=== PATIENT | female | born 1935 | race Caucasian/White ===

== ENCOUNTER 2018-01-20 17:55 | Inpatient (IN) | payer MEDICARE, OTHER ==
[~2018-01-20] VITALS: Ht 147.3 cm; Wt 50.8 kg
[2018-01-20] MEDS ORDERED: fentaNYL PF VIAL 100 MCG/2 ML VIAL IV ONE (19:30)
[2018-01-20 19:38] LABS: BILIRUBIN,URINE NEGATIVE (NEG); CLARITY,URINE CLEAR; COLOR,URINE YELLOW; NITRITE,URINE NEGATIVE (NEG); PROTEIN,URINE 30 mg/dL (NEG-TRACE); UROBILINOGEN,URINE 0.2 mg/dL (0.2 mg/dL)
[2018-01-20 19:43] LABS: BACTERIA,URINE 0 /HPF (0-FEW); RBC,URINE 0 /HPF (0-2); SQUAMOUS EPITHELIAL CELL,UR FEW /LPF
[2018-01-20] MEDS ORDERED: IV NORMAL SALINE 1000ML BAG 1,000 ML IV ONE (19:45)
[2018-01-20 20:14] LABS: BASO # 0.1 x10^3/uL (0.0-0.2); BASO % 1 % (0-3); EOS % 0 % (0-3); HEMATOCRIT 33.7 % (36.0-47.0); HEMOGLOBIN 11.2 g/dL (12.0-15.5); LYMPH # 1.1 x10^3/uL (1.0-4.8); LYMPH % 11 % (24-48); MEAN CORPUSCULAR HEMOGLOBIN 34 pg (25-35); MEAN CORPUSCULAR HGB CONC 33 g/dL (31-37); MEAN CORPUSCULAR VOLUME 101 fL (79-100); MONO # 0.4 x10^3/uL (0.0-1.1); MONO % 4 % (0-9); NEUT # 8.4 x10^3uL (1.8-7.7); NEUT % 84 % (31-73); PLATELET COUNT 384 x10^3/uL (140-400); RED BLOOD COUNT 3.34 x10^6/uL (3.50-5.40); RED CELL DISTRIBUTION WIDTH 15.1 % (11.5-14.5)
--- NOTE | 2018-01-20 20:19 | RAD ---
Left lower extremity venous duplex study 01/20/2018 Clinical History: Left leg redness and swelling. Technique: Using a combination of real time ultrasound imaging and color-flow and pulse Doppler imaging techniques along with graded compression and augmentation, duplex evaluation of the deep venous system of the left lower extremity was performed. Multiple images were obtained. Findings: There is no sonographic evidence of deep venous thrombosis involving the visualized deep venous structures of left lower extremity. Impression: Negative study. Electronically signed by: Jose Alfredo Westbrook MD (01/20/2018 8:15 PM) [facility]
[2018-01-20 20:28] LABS: CALCIUM 9.4 mg/dL (8.5-10.1); CREATININE 1.2 mg/dL (0.6-1.0); GFR 42.8; POTASSIUM 4.3 mmol/L (3.5-5.1)
[2018-01-20 20:34] LABS: ALBUMIN 3.2 g/dL (3.4-5.0); ALBUMIN/GLOBULIN RATIO 0.6 (1.0-1.7); TOTAL BILIRUBIN 0.3 mg/dL (0.2-1.0); TOTAL PROTEIN 8.2 g/dL (6.4-8.2)
[2018-01-20] MEDS ORDERED: CEPH500C PO (20:48)
[2018-01-20] MEDS ORDERED: ASPI-630 PO (20:48)
[2018-01-20] MEDS ORDERED: LISI-334 PO (20:48)
[2018-01-20] MEDS ORDERED: CRESTOR5 MG PO (20:48)
[2018-01-20] MEDS ORDERED: AMLO5TAB7 PO (20:48)
[2018-01-20] MEDS ORDERED: DOXY100C14 PO (20:48)
[2018-01-20 23:30] VITALS: BP 152/59
[2018-01-20] MEDS ORDERED: fentaNYL PF VIAL 100 MCG/2 ML VIAL IV PRN (23:30)
[2018-01-20] MEDS ORDERED: ONDANSETRON PF 4 MG/2 ML VIAL. IV PRN (23:30)
--- NOTE | 2018-01-20 23:30 | PHYS DOC ---
Past Medical History Past Medical History: Hypertension Past Surgical History: No Surgical History Alcohol Use: None Drug Use: None Adult General Chief Complaint Chief Complaint: LOWER EXTREMITY SWELLING HPI HPI Patient is a 82 year old female who presents with pain and erythema to her left foot. The patient states that she was weed eating in her garden and did her calf. She states that wound was healing fine and then she started developing this swelling, pain and redness in her foot. She states that she went to the [facility] Emergency Department at [facility] where she was placed on Keflex. The foot continued to worsen so she was seen by a another provider who added doxycycline. She states that she started the Doxy but the foot has continued to worsen with redness and the erythema now extending up into her ankle. She states the pain is 9 out of 10. She does not have pain medication at home. Review of Systems Review of Systems Constitutional: Denies fever or chills [] Eyes: Denies change in visual acuity, redness, or eye pain [] HENT: Denies nasal congestion or sore throat [] Respiratory: Denies cough or shortness of breath [] Cardiovascular: No additional information not addressed in HPI [] Musculoskeletal: See history of present illness Integument: Denies rash or skin lesions [] Neurologic: Denies headache, focal weakness or sensory changes [] Endocrine: Denies polyuria or polydipsia [] All other systems were reviewed and found to be within normal limits, except as documented in this note. Current Medications Current Medications Current Medications Medications (Trade) Dose Ordered Sig/[facility] Start Time Stop Time Status Last Admin Dose Admin Fentanyl Citrate (Fentanyl 2ml Vial) 50 mcg 1X ONCE 01/20/18 19:30 01/20/18 19:39 DC 01/20/18 20:13 50 MCG Sodium Chloride 1,000 ml @ 1,000 mls/hr 1X ONCE 01/20/18 19:45 01/20/18 20:44 DC 01/20/18 20:10 1,000 MLS/HR Allergies Allergies Allergies Coded Allergies Type Severity Reaction Last Updated Verified Penicillins Allergy Intermediate RASH/HIVES 01/20/18 Yes Physical Exam Physical Exam Constitutional: Well developed, well nourished, no acute distress, non-toxic appearance. [] Cardiovascular:Heart rate regular rhythm, no murmur [] Lungs & Thorax: Bilateral breath sounds clear to auscultation [] Abdomen: Bowel sounds normal, soft, no tenderness, no masses, no pulsatile masses. [] Skin: Warm, dry, no erythema, no rash. [] Back: No tenderness, no CVA tenderness. [] Extremities: tenderness to left foot with palpation, calor and erythema noted to foot, pulses are intact, no cyanosis, no clubbing, ROM intact, 2+ pitting edema. [] Neurologic: Alert and oriented X 3, normal motor function, normal sensory function, no focal deficits noted. [] Psychologic: Affect normal, judgement normal, mood normal. [] Current Patient Data Vital Signs Vital Signs Date Time Temp Pulse Resp B/P (MAP) Pulse Ox O2 Delivery O2 Flow Rate FiO2 01/20/18 20:13 27 96 Nasal Cannula 01/20/18 19:00 98.5 101 185/83 (117) 2.0 98.5 Lab Values Laboratory Tests Test 01/20/18 18:52 01/20/18 20:00 Urine Collection Type Unknown Urine Color Yellow Urine Clarity Clear Urine pH 6.0 Urine Specific [place] 1.010 Urine Protein 30 mg/dL (NEG-TRACE) Urine Glucose (UA) Negative mg/dL (NEG) Urine Ketones (Stick) Negative mg/dL (NEG) Urine Blood Negative (NEG) Urine Nitrite Negative (NEG) Urine Bilirubin Negative (NEG) Urine Urobilinogen Dipstick 0.2 mg/dL (0.2 mg/dL) Urine Leukocyte Esterase Trace (NEG) Urine RBC 0 /HPF (0-2) Urine WBC 1-4 /HPF (0-4) Urine Squamous Epithelial Cells Few /LPF Urine Bacteria 0 /HPF (0-FEW) White Blood Count 10.0 x10^3/uL (4.0-11.0) Red Blood Count 3.34 x10^6/uL (3.50-5.40) L Hemoglobin 11.2 g/dL (12.0-15.5) L Hematocrit 33.7 % (36.0-47.0) L Mean Corpuscular Volume 101 fL (79-100) H Mean Corpuscular Hemoglobin 34 pg (25-35) Mean Corpuscular Hemoglobin Concent 33 g/dL (31-37) Red Cell Distribution Width 15.1 % (11.5-14.5) H Platelet Count 384 x10^3/uL (140-400) Neutrophils (%) (Auto) 84 % (31-73) H Lymphocytes (%) (Auto) 11 % (24-48) L Monocytes (%) (Auto) 4 % (0-9) Eosinophils (%) (Auto) 0 % (0-3) Basophils (%) (Auto) 1 % (0-3) Neutrophils # (Auto) 8.4 x10^3uL (1.8-7.7) H Lymphocytes # (Auto) 1.1 x10^3/uL (1.0-4.8) Monocytes # (Auto) 0.4 x10^3/uL (0.0-1.1) Eosinophils # (Auto) 0.0 x10^3/uL (0.0-0.7) Basophils # (Auto) 0.1 x10^3/uL (0.0-0.2) Sodium Level 140 mmol/L (136-145) Potassium Level 4.3 mmol/L (3.5-5.1) Chloride Level 103 mmol/L (98-107) Carbon Dioxide Level 27 mmol/L (21-32) Anion Gap 10 (6-14) Blood Urea Nitrogen 21 mg/dL (7-20) H Creatinine 1.2 mg/dL (0.6-1.0) H Estimated GFR (Cockcroft-Gault) 42.8 BUN/Creatinine Ratio 18 (6-20) Glucose Level 87 mg/dL (70-99) Lactic Acid Level 0.5 mmol/L (0.4-2.0) Calcium Level 9.4 mg/dL (8.5-10.1) Total Bilirubin 0.3 mg/dL (0.2-1.0) Aspartate Amino Transferase (AST) 20 U/L (15-37) Alanine Aminotransferase (ALT) 21 U/L (14-59) Alkaline Phosphatase 70 U/L (46-116) Total Protein 8.2 g/dL (6.4-8.2) Albumin 3.2 g/dL (3.4-5.0) L Albumin/Globulin Ratio 0.6 (1.0-1.7) L Laboratory Tests 01/20/18 20:00 Laboratory Tests 01/20/18 20:00 EKG EKG [] Radiology/Procedures Radiology/Procedures [] Signed PATIENT: ANNMARIE RIVERO ACCOUNT: [id number] : 1935 LOCATION: ER AGE: 82 SEX: F EXAM STATUS: REG ER ORD. PHYSICIAN: MARY ALMEIDA APRN REASON: erythema and edema to left lower extremity PROCEDURE: VENOUS LOWER EXTREMITY LEFT Left lower extremity venous duplex study 01/20/2018 Clinical History: Left leg redness and swelling. Technique: Using a combination of real time ultrasound imaging and color-flow and pulse Doppler imaging techniques along with graded compression and augmentation, duplex evaluation of the deep venous system of the left lower extremity was performed. Multiple images were obtained. Findings: There is no sonographic evidence of deep venous thrombosis involving the visualized deep venous structures of left lower extremity. Impression: Negative study. Electronically signed by: Jose Alfredo Westbrook MD (01/20/2018 8:15 PM) [facility] DICTATED and SIGNED BY: JOSE ALFREDO WESTBROOK MD DATE: 01/20/18 2015 Course & Med Decision Making Course & Med Decision Making Pertinent Labs and Imaging studies reviewed. (See chart for details) []The patient is being admitted to Dr. Bruce's service for IV antibiotic therapy. She is in agreement with this plan. Dragon Disclaimer Dragon Disclaimer This electronic medical record was generated, in whole or in part, using a voice recognition dictation system. Departure Departure Impression: Primary Impression: Cellulitis Disposition: ADMITTED INPATIENT Admitting Physician: Brien Rivero Condition: GOOD Referrals: EDMOND LLAMAS MD (PCP) MARY ALMEIDA APRN Jan 20, 2018 23:30
[2018-01-20] MEDS: IV NORMAL SALINE 1000ML BAG 1,000 ML IV SCH (23:53)
[2018-01-21 03:00] VITALS: BP 119/55
[2018-01-21 05:20] LABS: BASO % 1 % (0-3); EOS % 0 % (0-3); HEMATOCRIT 27.7 % (36.0-47.0); HEMOGLOBIN 9.5 g/dL (12.0-15.5); LYMPH # 1.4 x10^3/uL (1.0-4.8); LYMPH % 18 % (24-48); MEAN CORPUSCULAR HEMOGLOBIN 35 pg (25-35); MEAN CORPUSCULAR HGB CONC 34 g/dL (31-37); MEAN CORPUSCULAR VOLUME 102 fL (79-100); MONO # 0.3 x10^3/uL (0.0-1.1); MONO % 4 % (0-9); NEUT # 5.9 x10^3uL (1.8-7.7); NEUT % 77 % (31-73); PLATELET COUNT 321 x10^3/uL (140-400); RED BLOOD COUNT 2.72 x10^6/uL (3.50-5.40); RED CELL DISTRIBUTION WIDTH 14.8 % (11.5-14.5); WHITE BLOOD COUNT 7.7 x10^3/uL (4.0-11.0)
[2018-01-21 05:33] LABS: CALCIUM 8.5 mg/dL (8.5-10.1); CREATININE 1.1 mg/dL (0.6-1.0); GFR 47.3; POTASSIUM 3.7 mmol/L (3.5-5.1)
[2018-01-21 07:00] VITALS: BP 131/54
--- NOTE | 2018-01-21 08:19 | RAD ---
FOOT LEFT 3V History: Left foot pain and swelling and edema for one week Comparison: None. Findings: 3 views of the left foot are submitted. There is some vascular calcification. No acute fracture, dislocation, aggressive bone destruction is identified. Impression: 1. No acute osseous abnormality is identified. Electronically signed by: Yuniel Garcia MD (01/21/2018 8:16 AM) [email or web address]
[2018-01-21 11:00] VITALS: BP 134/57
--- NOTE | 2018-01-21 11:02 | PDOC1 ---
History and Physical Date of Admission Date of Admission DATE: 01/21/18 TIME: 11:01 Identification/Chief Complaint Chief Complaint CC SEEN IN ER presentED with pain and erythema to her left foot, was weed eating in her garden nicked her calf. states that wound was healing fine and then she started developing this swelling, pain and redness in her foot., she went to the [facility] Emergency Department at [facility] where she was placed on Keflex. her foot continued to worsen so she was seen by a another provider who added doxycycline., started the Doxy but the foot has continued to worsen with redness admitted, will start iv vanc Past Medical History Cardiovascular: Hyperlipidemia Pulmonary: COPD Hepatobiliary: No pertinent hx Musculoskeletal: Osteoarthritis ENT: No pertinent hx Dermatology: Rash Family History Family History: High Cholestrol, Hypertension Social History Smoke: <1 pack per day ALCOHOL: none Drugs: None Current Medications Current Medications Current Medications Fentanyl Citrate (Fentanyl 2ml Vial) 50 mcg 1X ONCE IV Last administered on at 20:13; Start 01/20/18 at 19:30; Stop 01/20/18 at 19:39; Status DC Sodium Chloride 1,000 ml @ 1,000 mls/hr 1X ONCE IV Last administered on at 20:10; Start 01/20/18 at 19:45; Stop 01/20/18 at 20:44; Status DC Ondansetron HCl (Zofran) 4 mg PRN Q8HRS PRN IV NAUSEA/VOMITING 1ST CHOICE; Start 01/20/18 at 23:30; Stop 01/21/18 at 23:29 Fentanyl Citrate (Fentanyl 2ml Vial) 50 mcg PRN Q2HR PRN IV SEVERE PAIN Last administered on 01/21/18at 05:58; Start 01/20/18 at 23:30; Stop 01/21/18 at 23:29 Sodium Chloride 1,000 ml @ 125 mls/hr Q8H IV Last administered on 01/20/18at 23 :53; Start 01/20/18 at 23:30; Stop 01/21/18 at 23:29 Active Scripts Active Reported Doxycycline Monohydrate 100 Mg Capsule 1 Cap PO BID Cephalexin 500 Mg Capsule 1 Cap PO TID Aspirin 81 Mg Tab.chew 1 Tab PO DAILY Crestor (Rosuvastatin Calcium) 5 Mg Tablet 5 Mg PO HS Amlodipine Besylate 5 Mg Tablet 5 Mg PO DAILY Lisinopril 20 Mg Tablet 1 Tab PO BID Allergies Allergies: Coded Allergies: Penicillins (Verified Allergy, Intermediate, RASH/HIVES, 01/20/18) ROS Review of System Review of Systems Review of Systems Constitutional: Denies fever or chills [] Eyes: Denies change in visual acuity, redness, or eye pain [] HENT: Denies nasal congestion or sore throat [] Respiratory: Denies cough or shortness of breath [] Cardiovascular: No additional information not addressed in HPI [] Musculoskeletal: See history of present illness Integument: Denies rash or skin lesions [] Neurologic: Denies headache, focal weakness or sensory changes [] Endocrine: Denies polyuria or polydipsia [] 14 pt systems were reviewed and found to be within normal limits, except as documented General: YES: Fatigue Hematological and Lymphatic: No: Bleeding Problems, Blood Clots, Blood Transfusions, Brusing, Night Sweats, Pallor, Swollen Lymph Nodes, Other Cardiovascular: yes Edema; No Chest Pain, No Palpitations, No Orthopnea, No Paroxysmal Noc. Dyspnea, No Lt Headedness, No Other Genitourinary: No Dysuria, No Frequency, No Incontinence, No Hematuria, No Retention, No Discharge, No Urgency, No Pain, No Flank Pain, No Other, No , No , No , No , No , No , No Musculoskeletal: Yes Joint Stiffness Neurological: Yes Gait Disturbance Skin: Yes Rash, Yes Skin Lesion Changes Physical Exam Physical Exam Physical Exam Physical Exam Constitutional: Well developed, well nourished, no acute distress, non-toxic appearance. [] Cardiovascular:Heart rate regular rhythm, no murmur [] Lungs & Thorax: Bilateral breath sounds clear to auscultation [] Abdomen: Bowel sounds normal, soft, no tenderness, no masses, no pulsatile masses. [] Skin: Warm, dry, no erythema, no rash. [] Back: No tenderness, no CVA tenderness. [] Extremities: tenderness to left foot with palpation, calor and erythema noted to foot, pulses are intact, no cyanosis, no clubbing, ROM intact, 2+ pitting edema. [] Neurologic: Alert and oriented X 3, normal motor function, normal sensory function, no focal deficits noted. [] Psychologic: Affect normal, judgement normal, mood normal. [] General: Alert, Oriented X3, Cooperative, mild distress HEENT: Atraumatic, PERRLA, EOMI, Mucous membr. moist/pink Lungs: Clear to auscultation, Normal air movement Heart: S1S2, RRR, no thrills Breasts: Not examined Abdomen: Normal bowel sounds, Soft Rectal Exam: not examined Extremities: No cyanosis Neuro: Normal speech, Cranial nerves 3-12 NL Psych/Mental Status: Mental status NL Vitals Vitals Vital Signs Date Time Temp Pulse Resp B/P (MAP) Pulse Ox O2 Delivery O2 Flow Rate FiO2 01/21/18 07:50 Nasal Cannula 2.0 01/21/18 07:00 97.5 84 18 131/54 (79) 93 97.5 Labs Labs Laboratory Tests Test 01/20/18 18:52 01/20/18 20:00 01/21/18 03:50 Urine Collection Type Unknown Urine Color Yellow Urine Clarity Clear Urine pH 6.0 Urine Specific [place] 1.010 Urine Protein 30 mg/dL (NEG-TRACE) Urine Glucose (UA) Negative mg/dL (NEG) Urine Ketones (Stick) Negative mg/dL (NEG) Urine Blood Negative (NEG) Urine Nitrite Negative (NEG) Urine Bilirubin Negative (NEG) Urine Urobilinogen Dipstick 0.2 mg/dL (0.2 mg/dL) Urine Leukocyte Esterase Trace (NEG) Urine RBC 0 /HPF (0-2) Urine WBC 1-4 /HPF (0-4) Urine Squamous Epithelial Cells Few /LPF Urine Bacteria 0 /HPF (0-FEW) White Blood Count 10.0 x10^3/uL (4.0-11.0) 7.7 x10^3/uL (4.0-11.0) Red Blood Count 3.34 x10^6/uL (3.50-5.40) 2.72 x10^6/uL (3.50-5.40) Hemoglobin 11.2 g/dL (12.0-15.5) 9.5 g/dL (12.0-15.5) Hematocrit 33.7 % (36.0-47.0) 27.7 % (36.0-47.0) Mean Corpuscular Volume 101 fL (79-100) 102 fL (79-100) Mean Corpuscular Hemoglobin 34 pg (25-35) 35 pg (25-35) Mean Corpuscular Hemoglobin Concent 33 g/dL (31-37) 34 g/dL (31-37) Red Cell Distribution Width 15.1 % (11.5-14.5) 14.8 % (11.5-14.5) Platelet Count 384 x10^3/uL (140-400) 321 x10^3/uL (140-400) Neutrophils (%) (Auto) 84 % (31-73) 77 % (31-73) Lymphocytes (%) (Auto) 11 % (24-48) 18 % (24-48) Monocytes (%) (Auto) 4 % (0-9) 4 % (0-9) Eosinophils (%) (Auto) 0 % (0-3) 0 % (0-3) Basophils (%) (Auto) 1 % (0-3) 1 % (0-3) Neutrophils # (Auto) 8.4 x10^3uL (1.8-7.7) 5.9 x10^3uL (1.8-7.7) Lymphocytes # (Auto) 1.1 x10^3/uL (1.0-4.8) 1.4 x10^3/uL (1.0-4.8) Monocytes # (Auto) 0.4 x10^3/uL (0.0-1.1) 0.3 x10^3/uL (0.0-1.1) Eosinophils # (Auto) 0.0 x10^3/uL (0.0-0.7) 0.0 x10^3/uL (0.0-0.7) Basophils # (Auto) 0.1 x10^3/uL (0.0-0.2) 0.0 x10^3/uL (0.0-0.2) Sodium Level 140 mmol/L (136-145) 141 mmol/L (136-145) Potassium Level 4.3 mmol/L (3.5-5.1) 3.7 mmol/L (3.5-5.1) Chloride Level 103 mmol/L (98-107) 106 mmol/L (98-107) Carbon Dioxide Level 27 mmol/L (21-32) 26 mmol/L (21-32) Anion Gap 10 (6-14) 9 (6-14) Blood Urea Nitrogen 21 mg/dL (7-20) 19 mg/dL (7-20) Creatinine 1.2 mg/dL (0.6-1.0) 1.1 mg/dL (0.6-1.0) Estimated GFR (Cockcroft-Gault) 42.8 47.3 BUN/Creatinine Ratio 18 (6-20) Glucose Level 87 mg/dL (70-99) 86 mg/dL (70-99) Lactic Acid Level 0.5 mmol/L (0.4-2.0) Calcium Level 9.4 mg/dL (8.5-10.1) 8.5 mg/dL (8.5-10.1) Total Bilirubin 0.3 mg/dL (0.2-1.0) Aspartate Amino Transf (AST/SGOT) 20 U/L (15-37) Alanine Aminotransferase (ALT/SGPT) 21 U/L (14-59) Alkaline Phosphatase 70 U/L (46-116) Total Protein 8.2 g/dL (6.4-8.2) Albumin 3.2 g/dL (3.4-5.0) Albumin/Globulin Ratio 0.6 (1.0-1.7) Laboratory Tests Test 01/20/18 18:52 01/20/18 20:00 01/21/18 03:50 Urine Collection Type Unknown Urine Color Yellow Urine Clarity Clear Urine pH 6.0 Urine Specific [place] 1.010 Urine Protein 30 mg/dL (NEG-TRACE) Urine Glucose (UA) Negative mg/dL (NEG) Urine Ketones (Stick) Negative mg/dL (NEG) Urine Blood Negative (NEG) Urine Nitrite Negative (NEG) Urine Bilirubin Negative (NEG) Urine Urobilinogen Dipstick 0.2 mg/dL (0.2 mg/dL) Urine Leukocyte Esterase Trace (NEG) Urine RBC 0 /HPF (0-2) Urine WBC 1-4 /HPF (0-4) Urine Squamous Epithelial Cells Few /LPF Urine Bacteria 0 /HPF (0-FEW) White Blood Count 10.0 x10^3/uL (4.0-11.0) 7.7 x10^3/uL (4.0-11.0) Red Blood Count 3.34 x10^6/uL (3.50-5.40) 2.72 x10^6/uL (3.50-5.40) Hemoglobin 11.2 g/dL (12.0-15.5) 9.5 g/dL (12.0-15.5) Hematocrit 33.7 % (36.0-47.0) 27.7 % (36.0-47.0) Mean Corpuscular Volume 101 fL (79-100) 102 fL (79-100) Mean Corpuscular Hemoglobin 34 pg (25-35) 35 pg (25-35) Mean Corpuscular Hemoglobin Concent 33 g/dL (31-37) 34 g/dL (31-37) Red Cell Distribution Width 15.1 % (11.5-14.5) 14.8 % (11.5-14.5) Platelet Count 384 x10^3/uL (140-400) 321 x10^3/uL (140-400) Neutrophils (%) (Auto) 84 % (31-73) 77 % (31-73) Lymphocytes (%) (Auto) 11 % (24-48) 18 % (24-48) Monocytes (%) (Auto) 4 % (0-9) 4 % (0-9) Eosinophils (%) (Auto) 0 % (0-3) 0 % (0-3) Basophils (%) (Auto) 1 % (0-3) 1 % (0-3) Neutrophils # (Auto) 8.4 x10^3uL (1.8-7.7) 5.9 x10^3uL (1.8-7.7) Lymphocytes # (Auto) 1.1 x10^3/uL (1.0-4.8) 1.4 x10^3/uL (1.0-4.8) Monocytes # (Auto) 0.4 x10^3/uL (0.0-1.1) 0.3 x10^3/uL (0.0-1.1) Eosinophils # (Auto) 0.0 x10^3/uL (0.0-0.7) 0.0 x10^3/uL (0.0-0.7) Basophils # (Auto) 0.1 x10^3/uL (0.0-0.2) 0.0 x10^3/uL (0.0-0.2) Sodium Level 140 mmol/L (136-145) 141 mmol/L (136-145) Potassium Level 4.3 mmol/L (3.5-5.1) 3.7 mmol/L (3.5-5.1) Chloride Level 103 mmol/L (98-107) 106 mmol/L (98-107) Carbon Dioxide Level 27 mmol/L (21-32) 26 mmol/L (21-32) Anion Gap 10 (6-14) 9 (6-14) Blood Urea Nitrogen 21 mg/dL (7-20) 19 mg/dL (7-20) Creatinine 1.2 mg/dL (0.6-1.0) 1.1 mg/dL (0.6-1.0) Estimated GFR (Cockcroft-Gault) 42.8 47.3 BUN/Creatinine Ratio 18 (6-20) Glucose Level 87 mg/dL (70-99) 86 mg/dL (70-99) Lactic Acid Level 0.5 mmol/L (0.4-2.0) Calcium Level 9.4 mg/dL (8.5-10.1) 8.5 mg/dL (8.5-10.1) Total Bilirubin 0.3 mg/dL (0.2-1.0) Aspartate Amino Transf (AST/SGOT) 20 U/L (15-37) Alanine Aminotransferase (ALT/SGPT) 21 U/L (14-59) Alkaline Phosphatase 70 U/L (46-116) Total Protein 8.2 g/dL (6.4-8.2) Albumin 3.2 g/dL (3.4-5.0) Albumin/Globulin Ratio 0.6 (1.0-1.7) VTE Prophylaxis Ordered VTE Prophylaxis Devices: Contraindicated VTE Pharmacological Prophylaxi: Yes Assessment/Plan Assessment/Plan Impression: Cellulitis left foot and lower leg ckd, pre-renal azotemia tobacco abuse plan ADMITTED INPATIENT iv antibiotics, VANC id consult mri left foot arterial doppler both legs sq lovenox dvt prophylaxis ELIDA BOWLES MD Jan 21, 2018 11:02
[2018-01-21] MEDS: IV NORMAL SALINE 1000ML BAG 1,000 ML IV SCH ×2 (12:03→15:30)
[2018-01-21 15:00] VITALS: BP 149/58
[2018-01-21] MEDS ORDERED: ENOXAPARIN 40 MG/0.4 ML SYRINGE. SQ SCH (15:15)
[2018-01-21] MEDS ORDERED: VANCOMYCIN 1.25 GM in IV NORMAL SALINE 250ML 250 ML IV ONE (15:30)
[2018-01-21] MEDS: amLODIPine BESYLATE 5 MG TABLET PO SCH (15:31)
[2018-01-21] MEDS: ENOXAPARIN 30 MG/0.3 ML SYRINGE. SQ SCH (15:31)
[2018-01-21] MEDS: ASPIRIN CHEWABLE 81 MG TABLET. PO SCH (15:31)
[2018-01-21] MEDS: VANCOMYCIN PER PHARMACY MC PRN (16:16)
--- NOTE | 2018-01-21 17:11 | RAD ---
Bilateral lower extremity arterial ultrasound, 01/21/2018: HISTORY: Peripheral vascular disease Duplex evaluation of the major arteries in both lower extremities was performed including grayscale, color-flow and spectral Doppler analysis. There is moderate scattered atherosclerotic plaquing bilaterally. The right common femoral, superficial femoral and popliteal arteries demonstrate biphasic Doppler waveforms. The right common femoral artery demonstrates a peak systolic velocity of 123 cm/s. There is a velocity acceleration in the proximal right superficial femoral artery up to 259 cm/s, suggesting moderate stenosis at that level. No additional focal velocity acceleration is seen in the right femoral or popliteal arteries. The right anterior tibial and posterior tibial arteries demonstrate biphasic waveforms proximally. Distally the right posterior tibial Doppler waveform is monophasic. A patent peroneal artery in the right calf was not visible. The right dorsalis pedis artery is patent with a monophasic Doppler waveforms demonstrate a peak systolic velocity 116 cm/s. On the left, the common femoral, superficial femoral and popliteal Doppler waveforms are monophasic. This raises the possibility of iliac inflow disease on the left. There is a velocity acceleration in the mid left superficial femoral artery up to 417 cm/s suggesting significant stenosis at that level. In the left lower leg the posterior tibial artery demonstrates a dampened monophasic Doppler waveform. The left peroneal artery could not be visualized. The left anterior tibial artery is monophasic. The left dorsalis pedis artery is patent but demonstrates a poor amplitude monophasic Doppler waveform with a peak systolic velocity of 35 cm/s. IMPRESSION: 1. Moderate bilateral scattered atherosclerotic plaquing. 2. 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 3. Doppler evidence of high-grade stenosis in the left superficial femoral artery. 4. Probable moderate stenosis in the right superficial femoral artery. 5. 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 6. Moderate degradation of the distal Doppler waveforms in the left lower leg and ankle. Electronically signed by: Eulalio Snyder MD (01/21/2018 5:07 PM) [facility]
[2018-01-21 19:00] VITALS: BP 136/59
[2018-01-21] MEDS: LISINOPRIL 20 MG TABLET PO SCH (20:58)
[2018-01-21] MEDS: ATORVASTATIN CALCIUM 20 MG TABLET PO SCH (20:58)
[2018-01-21 23:00] VITALS: BP 121/77
[2018-01-22 03:00] VITALS: BP 122/61
[2018-01-22 04:24] LABS: BASO % 1 % (0-3); EOS % 0 % (0-3); HEMATOCRIT 28.9 % (36.0-47.0); HEMOGLOBIN 9.7 g/dL (12.0-15.5); LYMPH # 1.1 x10^3/uL (1.0-4.8); LYMPH % 17 % (24-48); MEAN CORPUSCULAR HEMOGLOBIN 34 pg (25-35); MEAN CORPUSCULAR HGB CONC 33 g/dL (31-37); MEAN CORPUSCULAR VOLUME 103 fL (79-100); MONO # 0.3 x10^3/uL (0.0-1.1); MONO % 4 % (0-9); NEUT # 5.3 x10^3uL (1.8-7.7); NEUT % 78 % (31-73); PLATELET COUNT 321 x10^3/uL (140-400); RED BLOOD COUNT 2.82 x10^6/uL (3.50-5.40); RED CELL DISTRIBUTION WIDTH 14.4 % (11.5-14.5); WHITE BLOOD COUNT 6.8 x10^3/uL (4.0-11.0)
[2018-01-22 05:04] LABS: ALBUMIN 2.6 g/dL (3.4-5.0); ALBUMIN/GLOBULIN RATIO 0.7 (1.0-1.7); CALCIUM 8.4 mg/dL (8.5-10.1); CREATININE 0.9 mg/dL (0.6-1.0); GFR 59.7; POTASSIUM 3.5 mmol/L (3.5-5.1); TOTAL BILIRUBIN 0.4 mg/dL (0.2-1.0); TOTAL PROTEIN 6.6 g/dL (6.4-8.2)
[2018-01-22 07:00] VITALS: BP 157/66
[2018-01-22] MEDS: LISINOPRIL 20 MG TABLET PO SCH ×2 (08:31→21:02)
[2018-01-22] MEDS: amLODIPine BESYLATE 5 MG TABLET PO SCH (08:31)
[2018-01-22] MEDS: ASPIRIN CHEWABLE 81 MG TABLET. PO SCH (08:31)
--- NOTE | 2018-01-22 10:56 | PDOC ---
PROGRESS NOTES History of Present Illness History of Present Illness Assessment/Plan Assessment/Plan Impression: Cellulitis left foot and lower leg ckd, pre-renal azotemia tobacco abuse Moderate bilateral scattered atherosclerotic plaquing. 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 Doppler evidence of high-grade stenosis in the left superficial femoral artery. Probable moderate stenosis in the right superficial femoral artery. 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 plan ADMITTED iv antibiotics, VANC id consult mri left foot pending arterial doppler both legs reviewed vas surgery consult sq lovenox dvt prophylaxis Vitals Vitals Vital Signs Date Time Temp Pulse Resp B/P (MAP) Pulse Ox O2 Delivery O2 Flow Rate FiO2 01/22/18 08:31 85 157/66 01/22/18 07:55 Nasal Cannula 2.0 01/22/18 07:00 98.1 20 92 98.1 Physical Exam General: Alert, Oriented X3, Cooperative, mild distress Heart: Regular rate, Normal S1 Lungs: Clear Abdomen: Normal bowel sounds, Soft Extremities: No cyanosis Skin: Other (foot red and tender, dec pelses) Labs LABS IMPRESSION: 1. Moderate bilateral scattered atherosclerotic plaquing. 2. 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 3. Doppler evidence of high-grade stenosis in the left superficial femoral artery. 4. Probable moderate stenosis in the right superficial femoral artery. 5. 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 6. Moderate degradation of the distal Doppler waveforms in the left lower leg and ankle. Electronically signed by: Eulalio Snyder MD (01/21/2018 5:07 PM) [facility] Laboratory Tests Test 01/22/18 03:20 White Blood Count 6.8 x10^3/uL (4.0-11.0) Red Blood Count 2.82 x10^6/uL (3.50-5.40) Hemoglobin 9.7 g/dL (12.0-15.5) Hematocrit 28.9 % (36.0-47.0) Mean Corpuscular Volume 103 fL (79-100) Mean Corpuscular Hemoglobin 34 pg (25-35) Mean Corpuscular Hemoglobin Concent 33 g/dL (31-37) Red Cell Distribution Width 14.4 % (11.5-14.5) Platelet Count 321 x10^3/uL (140-400) Neutrophils (%) (Auto) 78 % (31-73) Lymphocytes (%) (Auto) 17 % (24-48) Monocytes (%) (Auto) 4 % (0-9) Eosinophils (%) (Auto) 0 % (0-3) Basophils (%) (Auto) 1 % (0-3) Neutrophils # (Auto) 5.3 x10^3uL (1.8-7.7) Lymphocytes # (Auto) 1.1 x10^3/uL (1.0-4.8) Monocytes # (Auto) 0.3 x10^3/uL (0.0-1.1) Eosinophils # (Auto) 0.0 x10^3/uL (0.0-0.7) Basophils # (Auto) 0.0 x10^3/uL (0.0-0.2) Sodium Level 143 mmol/L (136-145) Potassium Level 3.5 mmol/L (3.5-5.1) Chloride Level 108 mmol/L (98-107) Carbon Dioxide Level 27 mmol/L (21-32) Anion Gap 8 (6-14) Blood Urea Nitrogen 11 mg/dL (7-20) Creatinine 0.9 mg/dL (0.6-1.0) Estimated GFR (Cockcroft-Gault) 59.7 BUN/Creatinine Ratio 12 (6-20) Glucose Level 95 mg/dL (70-99) Calcium Level 8.4 mg/dL (8.5-10.1) Total Bilirubin 0.4 mg/dL (0.2-1.0) Aspartate Amino Transf (AST/SGOT) 18 U/L (15-37) Alanine Aminotransferase (ALT/SGPT) 16 U/L (14-59) Alkaline Phosphatase 54 U/L (46-116) Total Protein 6.6 g/dL (6.4-8.2) Albumin 2.6 g/dL (3.4-5.0) Albumin/Globulin Ratio 0.7 (1.0-1.7) Assessment and Plan Assessmemt and Plan 1. Moderate bilateral scattered atherosclerotic plaquing. 2. 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 3. Doppler evidence of high-grade stenosis in the left superficial femoral artery. 4. Probable moderate stenosis in the right superficial femoral artery. 5. 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 Comment Review of Relevant I have reviewed the following items je (where applicable) has been applied. Labs Laboratory Tests Test 01/20/18 18:52 01/20/18 20:00 01/21/18 03:50 01/22/18 03:20 Urine Collection Type Unknown Urine Color Yellow Urine Clarity Clear Urine pH 6.0 Urine Specific Harmony 1.010 Urine Protein 30 mg/dL (NEG-TRACE) Urine Glucose (UA) Negative mg/dL (NEG) Urine Ketones (Stick) Negative mg/dL (NEG) Urine Blood Negative (NEG) Urine Nitrite Negative (NEG) Urine Bilirubin Negative (NEG) Urine Urobilinogen Dipstick 0.2 mg/dL (0.2 mg/dL) Urine Leukocyte Esterase Trace (NEG) Urine RBC 0 /HPF (0-2) Urine WBC 1-4 /HPF (0-4) Urine Squamous Epithelial Cells Few /LPF Urine Bacteria 0 /HPF (0-FEW) White Blood Count 10.0 x10^3/uL (4.0-11.0) 7.7 x10^3/uL (4.0-11.0) 6.8 x10^3/uL (4.0-11.0) Red Blood Count 3.34 x10^6/uL (3.50-5.40) 2.72 x10^6/uL (3.50-5.40) 2.82 x10^6/uL (3.50-5.40) Hemoglobin 11.2 g/dL (12.0-15.5) 9.5 g/dL (12.0-15.5) 9.7 g/dL (12.0-15.5) Hematocrit 33.7 % (36.0-47.0) 27.7 % (36.0-47.0) 28.9 % (36.0-47.0) Mean Corpuscular Volume 101 fL (79-100) 102 fL (79-100) 103 fL (79-100) Mean Corpuscular Hemoglobin 34 pg (25-35) 35 pg (25-35) 34 pg (25-35) Mean Corpuscular Hemoglobin Concent 33 g/dL (31-37) 34 g/dL (31-37) 33 g/dL (31-37) Red Cell Distribution Width 15.1 % (11.5-14.5) 14.8 % (11.5-14.5) 14.4 % (11.5-14.5) Platelet Count 384 x10^3/uL (140-400) 321 x10^3/uL (140-400) 321 x10^3/uL (140-400) Neutrophils (%) (Auto) 84 % (31-73) 77 % (31-73) 78 % (31-73) Lymphocytes (%) (Auto) 11 % (24-48) 18 % (24-48) 17 % (24-48) Monocytes (%) (Auto) 4 % (0-9) 4 % (0-9) 4 % (0-9) Eosinophils (%) (Auto) 0 % (0-3) 0 % (0-3) 0 % (0-3) Basophils (%) (Auto) 1 % (0-3) 1 % (0-3) 1 % (0-3) Neutrophils # (Auto) 8.4 x10^3uL (1.8-7.7) 5.9 x10^3uL (1.8-7.7) 5.3 x10^3uL (1.8-7.7) Lymphocytes # (Auto) 1.1 x10^3/uL (1.0-4.8) 1.4 x10^3/uL (1.0-4.8) 1.1 x10^3/uL (1.0-4.8) Monocytes # (Auto) 0.4 x10^3/uL (0.0-1.1) 0.3 x10^3/uL (0.0-1.1) 0.3 x10^3/uL (0.0-1.1) Eosinophils # (Auto) 0.0 x10^3/uL (0.0-0.7) 0.0 x10^3/uL (0.0-0.7) 0.0 x10^3/uL (0.0-0.7) Basophils # (Auto) 0.1 x10^3/uL (0.0-0.2) 0.0 x10^3/uL (0.0-0.2) 0.0 x10^3/uL (0.0-0.2) Sodium Level 140 mmol/L (136-145) 141 mmol/L (136-145) 143 mmol/L (136-145) Potassium Level 4.3 mmol/L (3.5-5.1) 3.7 mmol/L (3.5-5.1) 3.5 mmol/L (3.5-5.1) Chloride Level 103 mmol/L (98-107) 106 mmol/L (98-107) 108 mmol/L (98-107) Carbon Dioxide Level 27 mmol/L (21-32) 26 mmol/L (21-32) 27 mmol/L (21-32) Anion Gap 10 (6-14) 9 (6-14) 8 (6-14) Blood Urea Nitrogen 21 mg/dL (7-20) 19 mg/dL (7-20) 11 mg/dL (7-20) Creatinine 1.2 mg/dL (0.6-1.0) 1.1 mg/dL (0.6-1.0) 0.9 mg/dL (0.6-1.0) Estimated GFR (Cockcroft-Gault) 42.8 47.3 59.7 BUN/Creatinine Ratio 18 (6-20) 12 (6-20) Glucose Level 87 mg/dL (70-99) 86 mg/dL (70-99) 95 mg/dL (70-99) Lactic Acid Level 0.5 mmol/L (0.4-2.0) Calcium Level 9.4 mg/dL (8.5-10.1) 8.5 mg/dL (8.5-10.1) 8.4 mg/dL (8.5-10.1) Total Bilirubin 0.3 mg/dL (0.2-1.0) 0.4 mg/dL (0.2-1.0) Aspartate Amino Transf (AST/SGOT) 20 U/L (15-37) 18 U/L (15-37) Alanine Aminotransferase (ALT/SGPT) 21 U/L (14-59) 16 U/L (14-59) Alkaline Phosphatase 70 U/L (46-116) 54 U/L (46-116) Total Protein 8.2 g/dL (6.4-8.2) 6.6 g/dL (6.4-8.2) Albumin 3.2 g/dL (3.4-5.0) 2.6 g/dL (3.4-5.0) Albumin/Globulin Ratio 0.6 (1.0-1.7) 0.7 (1.0-1.7) Laboratory Tests Test 01/22/18 03:20 White Blood Count 6.8 x10^3/uL (4.0-11.0) Red Blood Count 2.82 x10^6/uL (3.50-5.40) Hemoglobin 9.7 g/dL (12.0-15.5) Hematocrit 28.9 % (36.0-47.0) Mean Corpuscular Volume 103 fL (79-100) Mean Corpuscular Hemoglobin 34 pg (25-35) Mean Corpuscular Hemoglobin Concent 33 g/dL (31-37) Red Cell Distribution Width 14.4 % (11.5-14.5) Platelet Count 321 x10^3/uL (140-400) Neutrophils (%) (Auto) 78 % (31-73) Lymphocytes (%) (Auto) 17 % (24-48) Monocytes (%) (Auto) 4 % (0-9) Eosinophils (%) (Auto) 0 % (0-3) Basophils (%) (Auto) 1 % (0-3) Neutrophils # (Auto) 5.3 x10^3uL (1.8-7.7) Lymphocytes # (Auto) 1.1 x10^3/uL (1.0-4.8) Monocytes # (Auto) 0.3 x10^3/uL (0.0-1.1) Eosinophils # (Auto) 0.0 x10^3/uL (0.0-0.7) Basophils # (Auto) 0.0 x10^3/uL (0.0-0.2) Sodium Level 143 mmol/L (136-145) Potassium Level 3.5 mmol/L (3.5-5.1) Chloride Level 108 mmol/L (98-107) Carbon Dioxide Level 27 mmol/L (21-32) Anion Gap 8 (6-14) Blood Urea Nitrogen 11 mg/dL (7-20) Creatinine 0.9 mg/dL (0.6-1.0) Estimated GFR (Cockcroft-Gault) 59.7 BUN/Creatinine Ratio 12 (6-20) Glucose Level 95 mg/dL (70-99) Calcium Level 8.4 mg/dL (8.5-10.1) Total Bilirubin 0.4 mg/dL (0.2-1.0) Aspartate Amino Transf (AST/SGOT) 18 U/L (15-37) Alanine Aminotransferase (ALT/SGPT) 16 U/L (14-59) Alkaline Phosphatase 54 U/L (46-116) Total Protein 6.6 g/dL (6.4-8.2) Albumin 2.6 g/dL (3.4-5.0) Albumin/Globulin Ratio 0.7 (1.0-1.7) Microbiology 01/20/18 Blood Culture - Preliminary, Resulted NO GROWTH AFTER 1 DAY Medications Current Medications Fentanyl Citrate (Fentanyl 2ml Vial) 50 mcg 1X ONCE IV Last administered on at 20:13; Start 01/20/18 at 19:30; Stop 01/20/18 at 19:39; Status DC Sodium Chloride 1,000 ml @ 1,000 mls/hr 1X ONCE IV Last administered on at 20:10; Start 01/20/18 at 19:45; Stop 01/20/18 at 20:44; Status DC Ondansetron HCl (Zofran) 4 mg PRN Q8HRS PRN IV NAUSEA/VOMITING 1ST CHOICE; Start 01/20/18 at 23:30; Stop 01/21/18 at 23:29; Status DC Fentanyl Citrate (Fentanyl 2ml Vial) 50 mcg PRN Q2HR PRN IV SEVERE PAIN Last administered on 01/21/18at 05:58; Start 01/20/18 at 23:30; Stop 01/21/18 at 23:29 ; Status DC Sodium Chloride 1,000 ml @ 125 mls/hr Q8H IV Last administered on 01/21/18at 12 :03; Start 01/20/18 at 23:30; Stop 01/21/18 at 23:29; Status DC Amlodipine Besylate (Norvasc) 5 mg DAILY PO Last administered on 01/22/18at 08: 31; Start 01/21/18 at 15:00 Aspirin (Children'S Aspirin) 81 mg DAILY PO Last administered on 01/22/18at 08: 31; Start 01/21/18 at 15:00 Lisinopril (Prinivil) 20 mg BID PO Last administered on 01/22/18at 08:31; Start 01/21/18 at 21:00 Atorvastatin Calcium (Lipitor) 20 mg QHS PO Last administered on 01/21/18at 20: 58; Start 01/21/18 at 21:00 Vancomycin HCl (Vanco Per Pharmacy) 1 each PRN DAILY PRN MC SEE COMMENTS Last administered on 01/21/18at 16:16; Start 01/21/18 at 15:00 Vancomycin HCl 1.25 gm/Sodium Chloride 250 ml @ 166.667 mls/hr 1X ONCE IV Last administered on 01/21/18at 15:30; Start 01/21/18 at 15:30; Stop 01/21/18 at 16:59; Status DC Enoxaparin Sodium (Lovenox 40mg Syringe) 40 mg Q24H SQ ; Start 01/21/18 at 15:15 ; Status Cancel Enoxaparin Sodium (Lovenox 30mg Syringe) 30 mg Q24H SQ ; Start 01/21/18 at 16:00 Vancomycin HCl 750 mg/Sodium Chloride 250 ml @ 250 mls/hr Q24H IV ; Start 01/22 at 15:30 Vancomycin HCl (Vancomycin Trough Level) 1 each 1X ONCE MC ; Start 01/23/18 at 15:00; Stop 01/23/18 at 15:01 Cetirizine HCl (ZyrTEC) 10 mg DAILY PO ; Start 01/22/18 at 10:45 Active Scripts Active Reported Doxycycline Monohydrate 100 Mg Capsule 1 Cap PO BID Cephalexin 500 Mg Capsule 1 Cap PO TID Aspirin 81 Mg Tab.chew 1 Tab PO DAILY Crestor (Rosuvastatin Calcium) 5 Mg Tablet 5 Mg PO HS Amlodipine Besylate 5 Mg Tablet 5 Mg PO DAILY Lisinopril 20 Mg Tablet 1 Tab PO BID Vitals/I & O Vital Sign - Last 24 Hours 01/21/18 01/21/18 01/21/18 01/21/18 11:00 15:00 15:31 19:00 Temp 97.9 98.2 98.9 97.9 98.2 98.9 Pulse 79 88 85 85 Resp 18 16 20 B/P (MAP) 134/57 (82) 149/58 (88) 149/58 136/59 (84) Pulse Ox 93 98 93 O2 Delivery Nasal Cannula Nasal Cannula O2 Flow Rate 2.0 2.0 01/21/18 01/21/18 01/21/18 01/22/18 20:00 20:58 23:00 03:00 Temp 97.9 98.7 97.9 98.7 Pulse 85 89 80 Resp 18 18 B/P (MAP) 136/59 121/77 (92) 122/61 (81) Pulse Ox 95 93 O2 Delivery Nasal Cannula O2 Flow Rate 2.0 01/22/18 01/22/18 01/22/18 01/22/18 07:00 07:55 08:31 08:31 Temp 98.1 98.1 Pulse 85 85 85 Resp 20 B/P (MAP) 157/66 (96) 157/66 157/66 Pulse Ox 92 O2 Delivery Nasal Cannula Nasal Cannula O2 Flow Rate 2.0 2.0 Intake and Output 01/21/18 01/21/18 01/22/18 15:00 23:00 07:00 Intake Total 240 ml 1000 ml 1120 ml Balance 240 ml 1000 ml 1120 ml ELIDA BOWLES MD Jan 22, 2018 10:56
[2018-01-22 11:00] VITALS: BP 150/64
--- NOTE | 2018-01-22 12:23 | PDOC ---
Provider Note Provider Note pt seen consult dictated [id number] NICKY CARDENAS MD Jan 22, 2018 12:23
[2018-01-22] MEDS: CETIRIZINE HCL 10 MG TABLET. PO SCH (12:33)
--- NOTE | 2018-01-22 13:11 | CONS ---
DATE OF CONSULTATION: REFERRING PHYSICIAN: Dr. Bruce. REASON FOR CONSULTATION: Left lower extremity cellulitis. HISTORY OF PRESENT ILLNESS: This is an 82-year-old female with a history of smoking who presented with complaints of worsening left foot pain, swelling and erythema. The patient noticed it around Friday, had low-grade fever, went to [facility] ED at [facility] where she was placed on Keflex 500 mg p.o. q.6 hours, foot continued to worsen, she was seen by her primary care physician on Friday who added doxycycline. The foot continued to worsen with redness and swelling, now extended to her ankle, so she was brought to ED here. The patient had subjective fevers and chills last Friday and Friday, none today. Denies any history of fall. The patient said that she was doing yard work in the garden and felt like she may have nicked her calf, though she does not have any calf tenderness. She is a smoker. Denies any nausea, vomiting, diarrhea, abdominal pain, symptoms, headache, visual disturbances, generalized skin rash. She was started on vancomycin and ID consult has been requested. The patient had white count, which was normal. The patient had blood cultures, which are negative till now. She had a lower extremity ultrasound done, which was negative for DVT. She had foot x-ray, which showed no acute osseous abnormality. She had Doppler ultrasound for arterial studies of the left lower extremity, which showed moderate bilateral scattered atherosclerotic plaquing, possible left iliac artery inflow disease. Doppler evidence of high grade stenosis in the left superficial femoral artery, probable moderate stenosis in the right superficial femoral artery, bilateral peroneal artery occlusion in both lower extremities, moderate degradation in the left lower leg and ankle. She also underwent MRI of the lower extremity today, report of which is pending at this time. CURRENT MEDICATION: IV vancomycin. Other medications reviewed in medication list. PAST MEDICAL HISTORY: Hyperlipidemia, COPD, osteoarthritis, hypertension, smoker. SOCIAL HISTORY: Smokes less than 1 pack per day. ETOH: None. No drugs. Lives alone at home. No pets. ALLERGIES: PENICILLIN, HIVES FROM AMOXICILLIN, THOUGH HAS TOLERATED KEFLEX WELL. REVIEW OF SYSTEMS: Negative except for above in HPI. PHYSICAL EXAMINATION: VITAL SIGNS: Temperature 98, pulse 85, respiratory rate 20, blood pressure 157/66, oxygen saturation 92% on 2 liters. GENERAL: Alert and oriented times 3 female, cooperative, in no acute distress, lying comfortably in bed. HEENT: Right eye blindness, left eye pupil equal, reactive, anicteric. No thrush. Oral mucosa moist. NECK: Supple. No JVD. LUNGS: Clear bilaterally. CARDIOVASCULAR: S1, S2. ABDOMEN: Soft, bowel sounds present, nontender, nondistended. EXTREMITIES: Left lower extremity swelling present. Redness over the foot, tender. No open wounds noted. Mycotic toenails. NEUROLOGIC: Alert and oriented times 3. Grossly nonfocal. PSYCHOLOGIC: Appropriate mood and affect. DERMATOLOGIC: No generalized rash except for left lower extremity as above. MUSCULOSKELETAL: No joint swelling, no effusion. LABORATORY DATA: WBC 6.8, hemoglobin 9.7, hematocrit 28.9, platelets 321, neutrophils 78. Sodium 143, potassium 3.5, chloride 108, bicarbonate 27, BUN 11, creatinine 0.9, glucose 95. Lactate 0.5. LFTs within normal limits. Albumin 2.7. UA negative. RADIOLOGY: Lower extremity MRI pending. Duplex lower extremity artery as above. Foot x-ray negative. Lower extremity ultrasound negative for DVT. IMPRESSION: 1. Left lower extremity foot and lower leg erythema with mild superimposed cellulitis, failed outpatient Keflex and doxycycline. Pt denies any trauma 2. Chronic kidney disease. 3. Tobacco use. 4. Peripheral arterial disease. 5.Febrile illness resolved RECOMMENDATIONS: 1. Continue IV vancomycin. We will start patient on IV ceftriaxone. Monitor renal functions closely. 2. Consult Vascular for further evaluation and treatment of mild peripheral arterial disease. 3. Followup MRI of the left foot. 4. Continue supportive care. 5. Follow up labs in a.m. and cultures. Thank you, Dr. Bruce for consulting Infectious Disease to participate in this patient's care. If you have any questions, do not hesitate to contact me. NICKY CARDENAS MD DR: ADRIANNA/bala JOB#: [id number] / [id number] ASHLEY
--- NOTE | 2018-01-22 13:21 | RAD ---
EXAM: MRI left foot, attention to mid foot-forefoot DATE: 01/22/2018 11:10 AM CLINICAL HISTORY: WORSENING REDNESS AND SWELLING X 1 WEEK, REDNESS MOVING FROM TOES TOWARD LEG, NO SX HX, NO PRIORS, PT UNABLE TO REMAIN STILL DUE TO TREMORS AND PAIN COMPARISON: None available. TECHNIQUE: Multiple planar multisequence MR imaging of the left midfoot and forefoot was performed without the administration of IV contrast. FINDINGS: The exam is significantly limited by motion artifact. Within these constraints: T1 marrow signal is grossly preserved. No definite cortical erosive/destructive changes are seen. No evidence for acute osteomyelitis. No significant marrow edema is seen. The visualized flexor and extensor tendons are normal in signal and morphology without tenosynovitis. 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 Diffuse soft tissue swelling/edema about the forefoot and midfoot. IMPRESSION: 1. No evidence of acute osteomyelitis. 2. Forefoot and midfoot edema, nonspecific but may be seen with cellulitis. Electronically signed by: Isidoro Moss MD (01/22/2018 1:17 PM) [id number]
[2018-01-22] MEDS: VANCOMYCIN PER PHARMACY MC PRN (14:44)
[2018-01-22 15:21] VITALS: BP 156/53
[2018-01-22] MEDS ORDERED: VANCOMYCIN 750 MG in IV NORMAL SALINE 250ML 250 ML IV SCH (15:30)
[2018-01-22] MEDS: ENOXAPARIN 30 MG/0.3 ML SYRINGE. SQ SCH (15:43)
--- NOTE | 2018-01-22 18:29 | PDOC ---
Provider Note Provider Note (please see full dictation) 82 yo female presents with redness to the dorsal aspect of the left foot. She developed sudden onset pain in the left distal foot. She soaked her foot in warm epson salts, and reported redness in the dorsal foot thereafter. The forefoot pain has resolved. The redness has persisted. An arterial US showed some mild arterial insufficiency. The location and timing are most consistent with either a chemical or temp burn to the dorsal foot wound. Would continue protective measures to the left foot. Would not recommend any arterial intervention at this time. Please call if concerns arise. Would be happy to reevaluate her as an outpatient in the next 3-4 weeks. ABHISHEK HAKCETT MD Jan 22, 2018 18:28
[2018-01-22 19:00] VITALS: BP 147/66
[2018-01-22] MEDS: LACTOBACILLUS RHAMNOSUS GG 1 CAPSULE. PO SCH (21:03)
[2018-01-22] MEDS: ATORVASTATIN CALCIUM 20 MG TABLET PO SCH (21:03)
--- NOTE | 2018-01-22 21:45 | CONS ---
DATE OF CONSULTATION: 01/22/2018 CHIEF COMPLAINT: Left foot redness. HISTORY OF PRESENT ILLNESS: The patient is an 82-year-old female who lives alone. She developed sudden onset of left forefoot pain approximately a week ago. She subsequently soaked her left foot in what she describes as warm Epson salt bath. She just soaked the left foot up to the ankle. The following morning, she noted severe redness of the dorsal aspect of the foot. This redness has persisted for the last week. She has had some low-grade fevers. She notes that the previous pain in the dorsal foot has significantly improved. She denies any previous episodes of similar discoloration. She denies any history of pain with ambulation. PAST MEDICAL HISTORY: 1. Hyperlipidemia. 2. COPD. 3. Hypertension. 4. Osteoarthritis. 5. Tobaccoism. PAST SURGICAL HISTORY: None. CURRENT MEDICATIONS: Include vancomycin, lactobacillus, Zyrtec, atorvastatin, lisinopril, Lovenox, aspirin and Norvasc. ALLERGIES: ADVERSE REACTION TO PENICILLIN. SOCIAL HISTORY: She lives alone. She smokes approximately a pack of cigarettes a day. She denies any alcohol use. FAMILY HISTORY: Noncontributory. REVIEW OF SYSTEMS: No recent fevers, chills, chest pain or shortness of breath. No unilateral weakness, numbness, visual loss, speech change or other TIA or stroke symptoms. No nausea, vomiting, diarrhea, constipation, hematochezia, melena or other GI symptoms. No significant weight changes recently. No lower extremity pain with activity. Her only pain was in the dorsal foot prior to soaking it. No definitive TIA or stroke symptoms. PHYSICAL EXAMINATION: GENERAL: This is an elderly appearing female in no acute distress. VITAL SIGNS: Temperature 97.2, pulse 88, blood pressure 156/53 and respirations 18. NECK: Supple, no lymphadenopathy. CARDIOVASCULAR: Regular rhythm. ABDOMEN: Soft, nontender and nondistended. No palpable masses. EXTREMITIES: She has palpable radial and femoral pulses, popliteal and pedal pulses are nonpalpable. She has no significant areas of skin breakdown or edema of her right lower leg or foot. She has an area of hyperemia of the dorsal left foot that goes up to the inferior aspect of her malleoli. There is an area of definitive demarcation at the ankle as well as going down to the plantar skin. There is sparing of the plantar skin. She has normal capillary refill in the left foot. No definitive areas of skin breakdown. LABORATORY DATA: Significant for white blood cell 6.8, hemoglobin 9.7 and platelet count of 321. Sodium 143, potassium 3.5, BUN 11, creatinine 0.9, glucose 95. Venous duplex showed no evidence of deep venous thrombosis. Arterial ultrasound showed some scattered atherosclerotic plaquing with some blunting in the superficial femoral artery and tibial vessels consistent with mild to moderate arterial insufficiency. An MRI of the foot showed no evidence of osteomyelitis. IMPRESSION: 1. Left foot discoloration most consistent with a scalding or first or second degree chemical or temperature burn likely due to her soaking. 2. Erythema may also be associated with cellulitis, but the distribution is more consistent with a scalding or burning injury. 3. Mild arterial insufficiency. 4. Hypertension. RECOMMENDATIONS: 1. Would continue protective measures to the left foot. 2. No arterial intervention indicated at this time. 3. I would be happy to reevaluate her if areas of skin breakdown occur or she has worsening pain. 4. I would be happy to see her as an outpatient in 3-4 weeks if there are continued concerns. ABHISHEK HACKETT MD DR: LUIS/bala JOB#: [id number] / [id number] EDMOND Buchanan MD, ARUNDHATI MD FULBRIGHT, THOMAS MD
[2018-01-22 23:00] VITALS: BP 158/67
[2018-01-23 03:00] VITALS: BP 138/69
[2018-01-23 04:58] LABS: BASO # 0.1 x10^3/uL (0.0-0.2); BASO % 1 % (0-3); EOS # 0.1 x10^3/uL (0.0-0.7); EOS % 1 % (0-3); HEMATOCRIT 28.9 % (36.0-47.0); HEMOGLOBIN 9.8 g/dL (12.0-15.5); LYMPH # 1.2 x10^3/uL (1.0-4.8); LYMPH % 16 % (24-48); MEAN CORPUSCULAR HEMOGLOBIN 34 pg (25-35); MEAN CORPUSCULAR HGB CONC 34 g/dL (31-37); MEAN CORPUSCULAR VOLUME 101 fL (79-100); MONO # 0.3 x10^3/uL (0.0-1.1); MONO % 4 % (0-9); NEUT # 5.7 x10^3uL (1.8-7.7); NEUT % 78 % (31-73); PLATELET COUNT 295 x10^3/uL (140-400); RED BLOOD COUNT 2.86 x10^6/uL (3.50-5.40); RED CELL DISTRIBUTION WIDTH 14.8 % (11.5-14.5); WHITE BLOOD COUNT 7.3 x10^3/uL (4.0-11.0)
[2018-01-23 05:53] LABS: ALBUMIN 2.6 g/dL (3.4-5.0); ALBUMIN/GLOBULIN RATIO 0.6 (1.0-1.7); CALCIUM 8.5 mg/dL (8.5-10.1); CREATININE 0.9 mg/dL (0.6-1.0); GFR 59.7; POTASSIUM 3.3 mmol/L (3.5-5.1); TOTAL BILIRUBIN 0.4 mg/dL (0.2-1.0); TOTAL PROTEIN 6.8 g/dL (6.4-8.2)
[2018-01-23 07:00] VITALS: BP 142/67
[2018-01-23] MEDS: LACTOBACILLUS RHAMNOSUS GG 1 CAPSULE. PO SCH (08:55)
[2018-01-23] MEDS: CETIRIZINE HCL 10 MG TABLET. PO SCH (08:55)
[2018-01-23] MEDS: amLODIPine BESYLATE 5 MG TABLET PO SCH (08:56)
[2018-01-23] MEDS: ASPIRIN CHEWABLE 81 MG TABLET. PO SCH (08:56)
[2018-01-23] MEDS: LISINOPRIL 20 MG TABLET PO SCH (08:57)
[2018-01-23] MEDS ORDERED: ONDANSETRON ODT 4 MG TAB.RAPDIS. PO PRN (09:15)
[2018-01-23] MEDS ORDERED: ACETAMINOPHEN 500 MG TABLET PO PRN (09:15)
[2018-01-23] MEDS ORDERED: HYDROcodone/APAP 5/325MG 1 TAB TABLET PO PRN (09:15)
[2018-01-23] MEDS ORDERED: ONDANSETRON PF 4 MG/2 ML VIAL. IV PRN (09:15)
--- NOTE | 2018-01-23 10:51 | PDOC ---
PROGRESS NOTES Chief Complaint Chief Complaint Cellulitis left leg, better Cellulitis left foot and lower leg ckd, pre-renal azotemia tobacco abuse Moderate bilateral scattered atherosclerotic plaquing. 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 Doppler evidence of high-grade stenosis in the left superficial femoral artery. Probable moderate stenosis in the right superficial femoral artery. 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 Geriatric High fall risk Urine culture blood culture negative History of Present Illness History of Present Illness SHe wants to go home Cellulitis looks better as she claims no leg swelling No white count, no fever Nontoxic-appearing Blood culture negative, urine culture negative [facility], 3-[address] Tomas On empiric abx per ID Plan: I'm reaching out to ID if okay to safely discharge today Some low potassium 3.3 today-I will replace orally O2 here but not O2 at home, satting 91-92%-we'll do a 6 minute walk Discussed with RN Vitals Vitals Vital Signs Date Time Temp Pulse Resp B/P (MAP) Pulse Ox O2 Delivery O2 Flow Rate FiO2 01/23/18 08:57 86 142/67 01/23/18 08:00 Nasal Cannula 2.0 01/23/18 07:00 98.2 18 91 98.2 Physical Exam General: Alert, Oriented X3, Cooperative, mild distress Heart: Regular rate, Normal S1 Lungs: Clear Abdomen: Normal bowel sounds, Soft Extremities: No cyanosis Skin: Other (foot red and tender, dec pelses) Labs LABS Laboratory Tests Test 01/23/18 04:25 White Blood Count 7.3 x10^3/uL (4.0-11.0) Red Blood Count 2.86 x10^6/uL (3.50-5.40) Hemoglobin 9.8 g/dL (12.0-15.5) Hematocrit 28.9 % (36.0-47.0) Mean Corpuscular Volume 101 fL (79-100) Mean Corpuscular Hemoglobin 34 pg (25-35) Mean Corpuscular Hemoglobin Concent 34 g/dL (31-37) Red Cell Distribution Width 14.8 % (11.5-14.5) Platelet Count 295 x10^3/uL (140-400) Neutrophils (%) (Auto) 78 % (31-73) Lymphocytes (%) (Auto) 16 % (24-48) Monocytes (%) (Auto) 4 % (0-9) Eosinophils (%) (Auto) 1 % (0-3) Basophils (%) (Auto) 1 % (0-3) Neutrophils # (Auto) 5.7 x10^3uL (1.8-7.7) Lymphocytes # (Auto) 1.2 x10^3/uL (1.0-4.8) Monocytes # (Auto) 0.3 x10^3/uL (0.0-1.1) Eosinophils # (Auto) 0.1 x10^3/uL (0.0-0.7) Basophils # (Auto) 0.1 x10^3/uL (0.0-0.2) Sodium Level 143 mmol/L (136-145) Potassium Level 3.3 mmol/L (3.5-5.1) Chloride Level 108 mmol/L (98-107) Carbon Dioxide Level 28 mmol/L (21-32) Anion Gap 7 (6-14) Blood Urea Nitrogen 9 mg/dL (7-20) Creatinine 0.9 mg/dL (0.6-1.0) Estimated GFR (Cockcroft-Gault) 59.7 BUN/Creatinine Ratio 10 (6-20) Glucose Level 90 mg/dL (70-99) Calcium Level 8.5 mg/dL (8.5-10.1) Total Bilirubin 0.4 mg/dL (0.2-1.0) Aspartate Amino Transf (AST/SGOT) 22 U/L (15-37) Alanine Aminotransferase (ALT/SGPT) 19 U/L (14-59) Alkaline Phosphatase 54 U/L (46-116) Total Protein 6.8 g/dL (6.4-8.2) Albumin 2.6 g/dL (3.4-5.0) Albumin/Globulin Ratio 0.6 (1.0-1.7) Review of Systems Review of Systems A 14 point ROS was completed with the following noted as positive: Other systems reviewed and negative. \CONSTITUTIONAL: No fever or chills EYES: No recent changes SKIN: No rash or itching CARDIOVASCULAR: No chest pain, syncope, palpitations, or edema RESPIRATORY: No SOB or cough GASTROINTESTINAL: No nausea, vomiting or abdominal pain NEUROLOGICAL: No headaches or weakness ENDOCRINE: No cold or heat intolerance GENITOURINARY: No urgency or frequency of urination MUSCULOSKELETAL: No back pain or joint pain LYMPHATICS: No enlarged lymph nodes PSYCHIATRIC: No anxiety or depression Comment Review of Relevant I have reviewed the following items je (where applicable) has been applied. Labs Laboratory Tests Test 01/22/18 03:20 01/23/18 04:25 White Blood Count 6.8 x10^3/uL (4.0-11.0) 7.3 x10^3/uL (4.0-11.0) Red Blood Count 2.82 x10^6/uL (3.50-5.40) 2.86 x10^6/uL (3.50-5.40) Hemoglobin 9.7 g/dL (12.0-15.5) 9.8 g/dL (12.0-15.5) Hematocrit 28.9 % (36.0-47.0) 28.9 % (36.0-47.0) Mean Corpuscular Volume 103 fL (79-100) 101 fL (79-100) Mean Corpuscular Hemoglobin 34 pg (25-35) 34 pg (25-35) Mean Corpuscular Hemoglobin Concent 33 g/dL (31-37) 34 g/dL (31-37) Red Cell Distribution Width 14.4 % (11.5-14.5) 14.8 % (11.5-14.5) Platelet Count 321 x10^3/uL (140-400) 295 x10^3/uL (140-400) Neutrophils (%) (Auto) 78 % (31-73) 78 % (31-73) Lymphocytes (%) (Auto) 17 % (24-48) 16 % (24-48) Monocytes (%) (Auto) 4 % (0-9) 4 % (0-9) Eosinophils (%) (Auto) 0 % (0-3) 1 % (0-3) Basophils (%) (Auto) 1 % (0-3) 1 % (0-3) Neutrophils # (Auto) 5.3 x10^3uL (1.8-7.7) 5.7 x10^3uL (1.8-7.7) Lymphocytes # (Auto) 1.1 x10^3/uL (1.0-4.8) 1.2 x10^3/uL (1.0-4.8) Monocytes # (Auto) 0.3 x10^3/uL (0.0-1.1) 0.3 x10^3/uL (0.0-1.1) Eosinophils # (Auto) 0.0 x10^3/uL (0.0-0.7) 0.1 x10^3/uL (0.0-0.7) Basophils # (Auto) 0.0 x10^3/uL (0.0-0.2) 0.1 x10^3/uL (0.0-0.2) Sodium Level 143 mmol/L (136-145) 143 mmol/L (136-145) Potassium Level 3.5 mmol/L (3.5-5.1) 3.3 mmol/L (3.5-5.1) Chloride Level 108 mmol/L (98-107) 108 mmol/L (98-107) Carbon Dioxide Level 27 mmol/L (21-32) 28 mmol/L (21-32) Anion Gap 8 (6-14) 7 (6-14) Blood Urea Nitrogen 11 mg/dL (7-20) 9 mg/dL (7-20) Creatinine 0.9 mg/dL (0.6-1.0) 0.9 mg/dL (0.6-1.0) Estimated GFR (Cockcroft-Gault) 59.7 59.7 BUN/Creatinine Ratio 12 (6-20) 10 (6-20) Glucose Level 95 mg/dL (70-99) 90 mg/dL (70-99) Calcium Level 8.4 mg/dL (8.5-10.1) 8.5 mg/dL (8.5-10.1) Total Bilirubin 0.4 mg/dL (0.2-1.0) 0.4 mg/dL (0.2-1.0) Aspartate Amino Transf (AST/SGOT) 18 U/L (15-37) 22 U/L (15-37) Alanine Aminotransferase (ALT/SGPT) 16 U/L (14-59) 19 U/L (14-59) Alkaline Phosphatase 54 U/L (46-116) 54 U/L (46-116) Total Protein 6.6 g/dL (6.4-8.2) 6.8 g/dL (6.4-8.2) Albumin 2.6 g/dL (3.4-5.0) 2.6 g/dL (3.4-5.0) Albumin/Globulin Ratio 0.7 (1.0-1.7) 0.6 (1.0-1.7) Laboratory Tests Test 01/23/18 04:25 White Blood Count 7.3 x10^3/uL (4.0-11.0) Red Blood Count 2.86 x10^6/uL (3.50-5.40) Hemoglobin 9.8 g/dL (12.0-15.5) Hematocrit 28.9 % (36.0-47.0) Mean Corpuscular Volume 101 fL (79-100) Mean Corpuscular Hemoglobin 34 pg (25-35) Mean Corpuscular Hemoglobin Concent 34 g/dL (31-37) Red Cell Distribution Width 14.8 % (11.5-14.5) Platelet Count 295 x10^3/uL (140-400) Neutrophils (%) (Auto) 78 % (31-73) Lymphocytes (%) (Auto) 16 % (24-48) Monocytes (%) (Auto) 4 % (0-9) Eosinophils (%) (Auto) 1 % (0-3) Basophils (%) (Auto) 1 % (0-3) Neutrophils # (Auto) 5.7 x10^3uL (1.8-7.7) Lymphocytes # (Auto) 1.2 x10^3/uL (1.0-4.8) Monocytes # (Auto) 0.3 x10^3/uL (0.0-1.1) Eosinophils # (Auto) 0.1 x10^3/uL (0.0-0.7) Basophils # (Auto) 0.1 x10^3/uL (0.0-0.2) Sodium Level 143 mmol/L (136-145) Potassium Level 3.3 mmol/L (3.5-5.1) Chloride Level 108 mmol/L (98-107) Carbon Dioxide Level 28 mmol/L (21-32) Anion Gap 7 (6-14) Blood Urea Nitrogen 9 mg/dL (7-20) Creatinine 0.9 mg/dL (0.6-1.0) Estimated GFR (Cockcroft-Gault) 59.7 BUN/Creatinine Ratio 10 (6-20) Glucose Level 90 mg/dL (70-99) Calcium Level 8.5 mg/dL (8.5-10.1) Total Bilirubin 0.4 mg/dL (0.2-1.0) Aspartate Amino Transf (AST/SGOT) 22 U/L (15-37) Alanine Aminotransferase (ALT/SGPT) 19 U/L (14-59) Alkaline Phosphatase 54 U/L (46-116) Total Protein 6.8 g/dL (6.4-8.2) Albumin 2.6 g/dL (3.4-5.0) Albumin/Globulin Ratio 0.6 (1.0-1.7) Microbiology 01/20/18 Blood Culture - Preliminary, Resulted NO GROWTH AFTER 2 DAYS 01/20/18 Urine Culture - Final, Complete 01/20/18 Urine Culture Result 1 (HOOD) - Final, Complete Medications Current Medications Fentanyl Citrate (Fentanyl 2ml Vial) 50 mcg 1X ONCE IV Last administered on at 20:13; Start 01/20/18 at 19:30; Stop 01/20/18 at 19:39; Status DC Sodium Chloride 1,000 ml @ 1,000 mls/hr 1X ONCE IV Last administered on at 20:10; Start 01/20/18 at 19:45; Stop 01/20/18 at 20:44; Status DC Ondansetron HCl (Zofran) 4 mg PRN Q8HRS PRN IV NAUSEA/VOMITING 1ST CHOICE; Start 01/20/18 at 23:30; Stop 01/21/18 at 23:29; Status DC Fentanyl Citrate (Fentanyl 2ml Vial) 50 mcg PRN Q2HR PRN IV SEVERE PAIN Last administered on 01/21/18at 05:58; Start 01/20/18 at 23:30; Stop 01/21/18 at 23:29 ; Status DC Sodium Chloride 1,000 ml @ 125 mls/hr Q8H IV Last administered on 01/21/18at 12 :03; Start 01/20/18 at 23:30; Stop 01/21/18 at 23:29; Status DC Amlodipine Besylate (Norvasc) 5 mg DAILY PO Last administered on 01/23/18at 08: 56; Start 01/21/18 at 15:00 Aspirin (Children'S Aspirin) 81 mg DAILY PO Last administered on 01/23/18at 08: 56; Start 01/21/18 at 15:00 Lisinopril (Prinivil) 20 mg BID PO Last administered on 01/23/18at 08:57; Start 01/21/18 at 21:00 Atorvastatin Calcium (Lipitor) 20 mg QHS PO Last administered on 01/22/18at 21: 03; Start 01/21/18 at 21:00 Vancomycin HCl (Vanco Per Pharmacy) 1 each PRN DAILY PRN MC SEE COMMENTS Last administered on 01/22/18at 14:44; Start 01/21/18 at 15:00 Vancomycin HCl 1.25 gm/Sodium Chloride 250 ml @ 166.667 mls/hr 1X ONCE IV Last administered on 01/21/18at 15:30; Start 01/21/18 at 15:30; Stop 01/21/18 at 16:59; Status DC Enoxaparin Sodium (Lovenox 40mg Syringe) 40 mg Q24H SQ ; Start 01/21/18 at 15:15 ; Status Cancel Enoxaparin Sodium (Lovenox 30mg Syringe) 30 mg Q24H SQ ; Start 01/21/18 at 16:00 Vancomycin HCl 750 mg/Sodium Chloride 250 ml @ 250 mls/hr Q24H IV Last administered on 01/22/18at 15:30; Start 01/22/18 at 15:30 Vancomycin HCl (Vancomycin Trough Level) 1 each 1X ONCE MC ; Start 01/23/18 at 15:00; Stop 01/23/18 at 15:01 Cetirizine HCl (ZyrTEC) 10 mg DAILY PO Last administered on 01/23/18at 08:55; Start 01/22/18 at 10:45 Lactobacillus Rhamnosus (Culturelle) 1 cap BID PO Last administered on at 08:55; Start 01/22/18 at 21:00 Acetaminophen/ Hydrocodone Bitart (Lortab 5/325) 1 tab PRN Q4HRS PRN PO MODERATE-SEVERE PAIN; Start 01/23/18 at 09:15 Acetaminophen (Tylenol) 500 mg PRN Q6HRS PRN PO MILD PAIN / TEMP; Start at 09:15 Ondansetron HCl (Zofran) 4 mg PRN Q6HRS PRN IV NAUSEA/VOMITING; Start 01/23/18 at 09:15 Ondansetron HCl (Zofran Odt) 4 mg PRN Q6HRS PRN PO NAUSEA/VOMITING; Start 01/23 at 09:15 Active Scripts Active Reported Doxycycline Monohydrate 100 Mg Capsule 1 Cap PO BID Cephalexin 500 Mg Capsule 1 Cap PO TID Aspirin 81 Mg Tab.chew 1 Tab PO DAILY Crestor (Rosuvastatin Calcium) 5 Mg Tablet 5 Mg PO HS Amlodipine Besylate 5 Mg Tablet 5 Mg PO DAILY Lisinopril 20 Mg Tablet 1 Tab PO BID Vitals/I & O Vital Sign - Last 24 Hours 01/22/18 01/22/18 01/22/18 01/22/18 11:00 15:21 19:00 20:00 Temp 98.2 97.2 98.1 98.2 97.2 98.1 Pulse 84 88 81 Resp 18 B/P (MAP) 150/64 (92) 156/53 (87) 147/66 (93) Pulse Ox 92 93 94 O2 Delivery Nasal Cannula Nasal Cannula Room Air Nasal Cannula O2 Flow Rate 2.0 2.0 2.0 01/22/18 01/22/18 01/23/18 01/23/18 21:02 23:00 03:00 07:00 Temp 98.4 98.8 98.2 98.4 98.8 98.2 Pulse 81 83 74 86 Resp 18 B/P (MAP) 147/66 158/67 (97) 138/69 (92) 142/67 (92) Pulse Ox 95 92 91 O2 Delivery Nasal Cannula Nasal Cannula Nasal Cannula O2 Flow Rate 2.0 2.0 2.0 01/23/18 01/23/18 01/23/18 08:00 08:56 08:57 Pulse 86 86 B/P (MAP) 142/67 142/67 O2 Delivery Nasal Cannula O2 Flow Rate 2.0 Intake and Output 01/22/18 01/22/18 01/23/18 15:00 23:00 07:00 Intake Total 240 ml 540 ml Balance 240 ml 540 ml REMEDIOS BRYANT MD Jan 23, 2018 10:50
--- NOTE | 2018-01-23 10:57 | DISCH ---
DISCHARGE WITH HOME HEALTH DISCHARGE INFORMATION: Condition on Discharge: Stable CODE STATUS: Code Status: Full HOME HEALTH: Face to Face: I certify this patient is under my care and that I, or a nurse practitioner or physician's food and beverage assistant working with me, had a face to face encounter that meets the physician face to face encounter requirements with this patient on []. Physical Therapy For: Evalulation/Treatment Occupational Therapy For: Evaluation/Treatment Home Health Aide For: Self-care POST DISCHARGE ORDERS: Activity Instructions for Disc: Activity as tolerated DIET AFTER DISCHARGE: Regular CHECKS AFTER DISCHARGE: Checks after discharge: Check blood press - daily CERTIFICATION STATEMENT: Certification Statement: Certification Statement: Based on the above finding, I certify that this patient is confined to the home and needs intermittent care home care, physical therapy and/or speech therapy, or continues to need occupational therapy.~ This patient is under my care, and I have initiated the establishment of the plan of care.~ This patient will be followed by myself or a community physician who will periodically review the plan of care. Home Meds Reported Medications Doxycycline Monohydrate (DOXYCYCLINE MONOHYDRATE) 100 Mg Capsule, 1 CAP PO BID, #28 CAP 01/20/18 Cephalexin (CEPHALEXIN) 500 Mg Capsule, 1 CAP PO TID, #30 CAP 01/20/18 Aspirin (ASPIRIN) 81 Mg Tab.chew, 1 TAB PO DAILY, #30 TAB 3 Refills 01/20/18 Rosuvastatin Calcium (CRESTOR) 5 Mg Tablet, 5 MG PO HS for FOR CHOLESTEROL, #30 TAB 0 Refills 01/20/18 Amlodipine Besylate (AMLODIPINE BESYLATE) 5 Mg Tablet, 5 MG PO DAILY, TAB 01/20/18 Lisinopril (LISINOPRIL) 20 Mg Tablet, 1 TAB PO BID, #30 TAB 5 Refills 01/20/18 REMEDIOS BRYANT MD Jan 23, 2018 10:57
[2018-01-23 11:00] VITALS: BP 150/69
[2018-01-23] MEDS ORDERED: POTASSIUM CHLORIDE 20 MEQ TABLET.ER. PO ONE (11:00)
--- NOTE | 2018-01-23 13:03 | PDOC ---
Infectious Disease Note Subjective: Subjective pt says has been feeling a little better no f/c/n/v/d/sob /abdo pain vascular input noted ROS: ROS Negative except for above. Vital Signs: Vital Signs Vital Signs Date Time Temp Pulse Resp B/P (MAP) Pulse Ox O2 Delivery O2 Flow Rate FiO2 01/23/18 11:00 98.1 88 16 150/69 (96) 94 Nasal Cannula 2.0 98.1 Physical Exam: PHYSICAL EXAM GENERAL: Alert and oriented times 3 female, cooperative, in no acute distress, lying comfortably in bed. HEENT: Right eye blindness, left eye pupil equal, reactive, anicteric. No thrush. Oral mucosa moist. NECK: Supple. No JVD. LUNGS: Clear bilaterally. CARDIOVASCULAR: S1, S2. ABDOMEN: Soft, bowel sounds present, nontender, nondistended. EXTREMITIES: Left lower extremity swelling present. Redness over the foot, tender. No open wounds noted. Mycotic toenails. NEUROLOGIC: Alert and oriented times 3. Grossly nonfocal. PSYCHOLOGIC: Appropriate mood and affect. DERMATOLOGIC: No generalized rash except for left lower extremity as above. MUSCULOSKELETAL: No joint swelling, no effusion. Medications: Inpatient Meds: Current Medications Medications (Trade) Dose Ordered Sig/[facility] Start Time Stop Time Status Last Admin Dose Admin Acetaminophen (Tylenol) 500 mg PRN Q6HRS PRN 01/23/18 09:15 Acetaminophen/ Hydrocodone Bitart (Lortab 5/325) 1 tab PRN Q4HRS PRN 01/23/18 09:15 Amlodipine Besylate (Norvasc) 5 mg DAILY 01/21/18 15:00 01/23/18 08:56 5 MG Aspirin (Children'S Aspirin) 81 mg DAILY 01/21/18 15:00 01/23/18 08:56 81 MG Atorvastatin Calcium (Lipitor) 20 mg QHS 01/21/18 21:00 01/22/18 21:03 20 MG Cetirizine HCl (ZyrTEC) 10 mg DAILY 01/22/18 10:45 01/23/18 08:55 10 MG Enoxaparin Sodium (Lovenox 30mg Syringe) 30 mg Q24H 01/21/18 16:00 Enoxaparin Sodium (Lovenox 40mg Syringe) 40 mg Q24H 01/21/18 15:15 Cancel Fentanyl Citrate (Fentanyl 2ml Vial) 50 mcg PRN Q2HR PRN 01/20/18 23:30 01/21/18 23:29 DC 01/21/18 05:58 50 MCG Lactobacillus Rhamnosus (Culturelle) 1 cap BID 01/22/18 21:00 01/23/18 08:55 1 CAP Lisinopril (Prinivil) 20 mg BID 01/21/18 21:00 01/23/18 08:57 20 MG Ondansetron HCl (Zofran Odt) 4 mg PRN Q6HRS PRN 01/23/18 09:15 Ondansetron HCl (Zofran) 4 mg PRN Q6HRS PRN 01/23/18 09:15 Potassium Chloride (Klor-Con) 40 meq 1X ONCE 01/23/18 11:00 01/23/18 11:01 DC 01/23/18 12:01 40 MEQ Sodium Chloride 1,000 ml @ 125 mls/hr Q8H 01/20/18 23:30 01/21/18 23:29 DC 01/21/18 12:03 125 MLS/HR Vancomycin HCl (Vanco Per Pharmacy) 1 each PRN DAILY PRN 01/21/18 15:00 01/22/18 14:44 1 EACH Vancomycin HCl (Vancomycin Trough Level) 1 each 1X ONCE 01/23/18 15:00 01/23/18 15:01 Vancomycin HCl 1.25 gm/Sodium Chloride 250 ml @ 166.667 mls/hr 1X ONCE 01/21/18 15:30 01/21/18 16:59 DC 01/21/18 15:30 166.667 MLS/HR Vancomycin HCl 750 mg/Sodium Chloride 250 ml @ 250 mls/hr Q24H 01/22/18 15:30 01/22/18 15:30 250 MLS/HR Labs: Lab Laboratory Tests Test 01/23/18 04:25 White Blood Count 7.3 x10^3/uL (4.0-11.0) Red Blood Count 2.86 x10^6/uL (3.50-5.40) Hemoglobin 9.8 g/dL (12.0-15.5) Hematocrit 28.9 % (36.0-47.0) Mean Corpuscular Volume 101 fL (79-100) Mean Corpuscular Hemoglobin 34 pg (25-35) Mean Corpuscular Hemoglobin Concent 34 g/dL (31-37) Red Cell Distribution Width 14.8 % (11.5-14.5) Platelet Count 295 x10^3/uL (140-400) Neutrophils (%) (Auto) 78 % (31-73) Lymphocytes (%) (Auto) 16 % (24-48) Monocytes (%) (Auto) 4 % (0-9) Eosinophils (%) (Auto) 1 % (0-3) Basophils (%) (Auto) 1 % (0-3) Neutrophils # (Auto) 5.7 x10^3uL (1.8-7.7) Lymphocytes # (Auto) 1.2 x10^3/uL (1.0-4.8) Monocytes # (Auto) 0.3 x10^3/uL (0.0-1.1) Eosinophils # (Auto) 0.1 x10^3/uL (0.0-0.7) Basophils # (Auto) 0.1 x10^3/uL (0.0-0.2) Sodium Level 143 mmol/L (136-145) Potassium Level 3.3 mmol/L (3.5-5.1) Chloride Level 108 mmol/L (98-107) Carbon Dioxide Level 28 mmol/L (21-32) Anion Gap 7 (6-14) Blood Urea Nitrogen 9 mg/dL (7-20) Creatinine 0.9 mg/dL (0.6-1.0) Estimated GFR (Cockcroft-Gault) 59.7 BUN/Creatinine Ratio 10 (6-20) Glucose Level 90 mg/dL (70-99) Calcium Level 8.5 mg/dL (8.5-10.1) Total Bilirubin 0.4 mg/dL (0.2-1.0) Aspartate Amino Transf (AST/SGOT) 22 U/L (15-37) Alanine Aminotransferase (ALT/SGPT) 19 U/L (14-59) Alkaline Phosphatase 54 U/L (46-116) Total Protein 6.8 g/dL (6.4-8.2) Albumin 2.6 g/dL (3.4-5.0) Albumin/Globulin Ratio 0.6 (1.0-1.7) Micro neg Objective: Assessment: 1. Left lower extremity foot and lower leg cellulitis, failed outpatient Keflex and doxycycline. improving MRI neg for abscess possible scald injury per vascular surgery 2. Chronic kidney disease. 3. Tobacco use. 4. Peripheral arterial disease. Plan: Plan of Care Can dc home on clindamycin( not much choices due to allergy to amoxicillin and no response to keflex) and doxycycline for 10 days nystatin cream bid for 10 days d/w granddaughter about s/e probiotics local wound care f/u with pcp in one week NICKY CARDENAS MD Jan 23, 2018 13:03
[2018-01-23] MEDS: VANCOMYCIN PER PHARMACY MC PRN (13:33)
[2018-01-23] MEDS ORDERED: CLIN300C8 PO (14:55)
--- NOTE | 2018-01-23 14:57 | PDOC3 ---
Discharge Summary Visit Information Date of Admission: Jan 20, 2018 Date of Discharge: Jan 23, 2018 Admitting Diagnosis Comment: cellulitis left leg, better Cellulitis left foot and lower leg ckd, pre-renal azotemia tobacco abuse Moderate bilateral scattered atherosclerotic plaquing. 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 Doppler evidence of high-grade stenosis in the left superficial femoral artery. Probable moderate stenosis in the right superficial femoral artery. 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 Geriatric High fall risk Urine culture blood culture negative Brief Hospital Course Allergies Allergies Coded Allergies Type Severity Reaction Last Updated Verified Penicillins Allergy Intermediate RASH/HIVES 01/20/18 Yes Vital Signs Vital Signs Date Time Temp Pulse Resp B/P (MAP) Pulse Ox O2 Delivery O2 Flow Rate FiO2 01/23/18 11:00 98.1 88 16 150/69 (96) 94 Nasal Cannula 2.0 98.1 Lab Results Laboratory Tests Test 01/22/18 03:20 01/23/18 04:25 White Blood Count 6.8 x10^3/uL (4.0-11.0) 7.3 x10^3/uL (4.0-11.0) Red Blood Count 2.82 x10^6/uL (3.50-5.40) 2.86 x10^6/uL (3.50-5.40) Hemoglobin 9.7 g/dL (12.0-15.5) 9.8 g/dL (12.0-15.5) Hematocrit 28.9 % (36.0-47.0) 28.9 % (36.0-47.0) Mean Corpuscular Volume 103 fL (79-100) 101 fL (79-100) Mean Corpuscular Hemoglobin 34 pg (25-35) 34 pg (25-35) Mean Corpuscular Hemoglobin Concent 33 g/dL (31-37) 34 g/dL (31-37) Red Cell Distribution Width 14.4 % (11.5-14.5) 14.8 % (11.5-14.5) Platelet Count 321 x10^3/uL (140-400) 295 x10^3/uL (140-400) Neutrophils (%) (Auto) 78 % (31-73) 78 % (31-73) Lymphocytes (%) (Auto) 17 % (24-48) 16 % (24-48) Monocytes (%) (Auto) 4 % (0-9) 4 % (0-9) Eosinophils (%) (Auto) 0 % (0-3) 1 % (0-3) Basophils (%) (Auto) 1 % (0-3) 1 % (0-3) Neutrophils # (Auto) 5.3 x10^3uL (1.8-7.7) 5.7 x10^3uL (1.8-7.7) Lymphocytes # (Auto) 1.1 x10^3/uL (1.0-4.8) 1.2 x10^3/uL (1.0-4.8) Monocytes # (Auto) 0.3 x10^3/uL (0.0-1.1) 0.3 x10^3/uL (0.0-1.1) Eosinophils # (Auto) 0.0 x10^3/uL (0.0-0.7) 0.1 x10^3/uL (0.0-0.7) Basophils # (Auto) 0.0 x10^3/uL (0.0-0.2) 0.1 x10^3/uL (0.0-0.2) Sodium Level 143 mmol/L (136-145) 143 mmol/L (136-145) Potassium Level 3.5 mmol/L (3.5-5.1) 3.3 mmol/L (3.5-5.1) Chloride Level 108 mmol/L (98-107) 108 mmol/L (98-107) Carbon Dioxide Level 27 mmol/L (21-32) 28 mmol/L (21-32) Anion Gap 8 (6-14) 7 (6-14) Blood Urea Nitrogen 11 mg/dL (7-20) 9 mg/dL (7-20) Creatinine 0.9 mg/dL (0.6-1.0) 0.9 mg/dL (0.6-1.0) Estimated GFR (Cockcroft-Gault) 59.7 59.7 BUN/Creatinine Ratio 12 (6-20) 10 (6-20) Glucose Level 95 mg/dL (70-99) 90 mg/dL (70-99) Calcium Level 8.4 mg/dL (8.5-10.1) 8.5 mg/dL (8.5-10.1) Total Bilirubin 0.4 mg/dL (0.2-1.0) 0.4 mg/dL (0.2-1.0) Aspartate Amino Transf (AST/SGOT) 18 U/L (15-37) 22 U/L (15-37) Alanine Aminotransferase (ALT/SGPT) 16 U/L (14-59) 19 U/L (14-59) Alkaline Phosphatase 54 U/L (46-116) 54 U/L (46-116) Total Protein 6.6 g/dL (6.4-8.2) 6.8 g/dL (6.4-8.2) Albumin 2.6 g/dL (3.4-5.0) 2.6 g/dL (3.4-5.0) Albumin/Globulin Ratio 0.7 (1.0-1.7) 0.6 (1.0-1.7) Laboratory Tests Test 01/23/18 04:25 White Blood Count 7.3 x10^3/uL (4.0-11.0) Red Blood Count 2.86 x10^6/uL (3.50-5.40) Hemoglobin 9.8 g/dL (12.0-15.5) Hematocrit 28.9 % (36.0-47.0) Mean Corpuscular Volume 101 fL (79-100) Mean Corpuscular Hemoglobin 34 pg (25-35) Mean Corpuscular Hemoglobin Concent 34 g/dL (31-37) Red Cell Distribution Width 14.8 % (11.5-14.5) Platelet Count 295 x10^3/uL (140-400) Neutrophils (%) (Auto) 78 % (31-73) Lymphocytes (%) (Auto) 16 % (24-48) Monocytes (%) (Auto) 4 % (0-9) Eosinophils (%) (Auto) 1 % (0-3) Basophils (%) (Auto) 1 % (0-3) Neutrophils # (Auto) 5.7 x10^3uL (1.8-7.7) Lymphocytes # (Auto) 1.2 x10^3/uL (1.0-4.8) Monocytes # (Auto) 0.3 x10^3/uL (0.0-1.1) Eosinophils # (Auto) 0.1 x10^3/uL (0.0-0.7) Basophils # (Auto) 0.1 x10^3/uL (0.0-0.2) Sodium Level 143 mmol/L (136-145) Potassium Level 3.3 mmol/L (3.5-5.1) Chloride Level 108 mmol/L (98-107) Carbon Dioxide Level 28 mmol/L (21-32) Anion Gap 7 (6-14) Blood Urea Nitrogen 9 mg/dL (7-20) Creatinine 0.9 mg/dL (0.6-1.0) Estimated GFR (Cockcroft-Gault) 59.7 BUN/Creatinine Ratio 10 (6-20) Glucose Level 90 mg/dL (70-99) Calcium Level 8.5 mg/dL (8.5-10.1) Total Bilirubin 0.4 mg/dL (0.2-1.0) Aspartate Amino Transf (AST/SGOT) 22 U/L (15-37) Alanine Aminotransferase (ALT/SGPT) 19 U/L (14-59) Alkaline Phosphatase 54 U/L (46-116) Total Protein 6.8 g/dL (6.4-8.2) Albumin 2.6 g/dL (3.4-5.0) Albumin/Globulin Ratio 0.6 (1.0-1.7) Brief Hospital Course Ms. 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 Condition at Discharge: Improved, Stable Disposition/Orders: D/C to Home Scheduled Amlodipine Besylate (Amlodipine Besylate) 5 Mg Tablet, 5 MG PO DAILY, (Reported) Entered as Reported by: MARKEL ALEJO on 01/20/182047 Last Action: Continued on 01/21/181454 by ELIDA BOWLES MD Aspirin (Aspirin) 81 Mg Tab.chew, 1 TAB PO DAILY, #30 Ref 3 (Reported) Entered as Reported by: MARKEL ALEJO on 9/18/18 2048 Last Action: Continued on 01/21/181454 by ELIDA BOWLES MD Cephalexin (Cephalexin) 500 Mg Capsule, 1 CAP PO TID, #30 (Reported) Entered as Reported by: MARKEL ALEJO on 01/20/182047 Last Action: HELD on 01/21/181454 by ELIDA BOWLES MD Clindamycin Hcl (Clindamycin Hcl) 300 Mg Capsule, 1 CAP PO TID, #21 Prescribed by: REMEDIOS BRYANT on 01/23/181454 Doxycycline Monohydrate (Doxycycline Monohydrate) 100 Mg Capsule, 1 CAP PO BID, #28 (Reported) Entered as Reported by: MARKEL ALEJO on 01/20/182047 Last Action: HELD on 01/21/181454 by ELIDA BOWLES MD Lisinopril (Lisinopril) 20 Mg Tablet, 1 TAB PO BID, #30 Ref 5 (Reported) Entered as Reported by: MARKEL ALEJO on 01/20/182047 Last Action: Continued on 01/21/181454 by ELIDA BOWLES MD Rosuvastatin Calcium (Crestor) 5 Mg Tablet, 5 MG PO HS for FOR CHOLESTEROL, #30 Ref 0 (Reported) Entered as Reported by: MARKEL ALEJO on 01/20/182047 Last Action: Converted on 01/21/181454 by MD MANNY MCDONNELL CHERRIE Y MD Jan 23, 2018 14:57
[2018-01-23] MEDS ORDERED: cefTRIAXone IV Push 1 GM VIAL. IVP SCH (15:00)
== END 2018-01-23 15:00 | disposition home or self-care (01) | DRG 871 ==
LOC: ER 17:55 → 5 SOUTH 20:35
PROVIDERS: ADMIT Family Medicine; ATTEND Family Medicine
DX: A41.9 Sepsis, unspecified organism (principal); N17.0 Acute kidney failure with tubular necrosis; L03.116 Cellulitis of left lower limb; I70.203 Unspecified atherosclerosis of native arteries of extremities, bilateral legs; E78.5 Hyperlipidemia, unspecified; I77.1 Stricture of artery; F17.210 Nicotine dependence, cigarettes, uncomplicated; I12.9 Hypertensive chronic kidney disease with stage 1 through stage 4 chronic kidney disease, or unspecified chronic kidney disease; M19.90 Unspecified osteoarthritis, unspecified site; J44.9 Chronic obstructive pulmonary disease, unspecified; N18.9 Chronic kidney disease, unspecified; Z79.82 Long term (current) use of aspirin; Z82.49 Family history of ischemic heart disease and other diseases of the circulatory system; Z91.81 History of falling; Z79.899 Other long term (current) drug therapy; Z88.0 Allergy status to penicillin
CPT/HCPCS: 36415; 73630; 73718; 80048; 80053; 81001; 83605; 85025; 87040; 87086; 93925; 93971; 94618; 96361; 96374; 99406; J0696; J3010; J3370; J7030; J7050; 99285-25

== ENCOUNTER 2018-07-12 19:58 | Inpatient (IN) | payer MEDICARE ==
[~2018-07-12] VITALS: Ht 154.9 cm; Wt 50.8 kg
[~2018-07-12 19:58] MED LIST: AMLO5TAB10 PO; ASPI-630 PO; CEPH500C PO; CLIN300C8 PO; CRESTOR5 MG PO; DOXY100C14 PO; LISI-334 PO
[2018-07-12 20:25] LABS: BASO % 0 % (0-3); EOS % 0 % (0-3); HEMATOCRIT 38.2 % (36.0-47.0); HEMOGLOBIN 12.1 g/dL (12.0-15.5); LYMPH % 9 % (24-48); MEAN CORPUSCULAR HEMOGLOBIN 30 pg (25-35); MEAN CORPUSCULAR HGB CONC 32 g/dL (31-37); MEAN CORPUSCULAR VOLUME 94 fL (79-100); MONO # 0.5 x10^3/uL (0.0-1.1); MONO % 4 % (0-9); NEUT # 10.2 x10^3uL (1.8-7.7); NEUT % 87 % (31-73); PLATELET COUNT 421 x10^3/uL (140-400); RED BLOOD COUNT 4.05 x10^6/uL (3.50-5.40); RED CELL DISTRIBUTION WIDTH 17.5 % (11.5-14.5); WHITE BLOOD COUNT 11.7 x10^3/uL (4.0-11.0)
[2018-07-12 20:37] LABS: CALCIUM 10.1 mg/dL (8.5-10.1); CREATININE 1.2 mg/dL (0.6-1.0); GFR 42.7; POTASSIUM 4.7 mmol/L (3.5-5.1)
[2018-07-12 20:40] LABS: PROTHROMBIN TIME PATIENT 13.2 SEC (11.7-14.0)
[2018-07-12 20:42] LABS: ALBUMIN 3.1 g/dL (3.4-5.0); ALBUMIN/GLOBULIN RATIO 0.6 (1.0-1.7); MAGNESIUM 1.7 mg/dL (1.8-2.4); TOTAL BILIRUBIN 0.3 mg/dL (0.2-1.0); TOTAL PROTEIN 8.2 g/dL (6.4-8.2)
[2018-07-12 20:45] LABS: INFLUENZA A PATIENT NEGATIVE (NEGATIVE); INFLUENZA B PATIENT NEGATIVE (NEGATIVE)
[2018-07-12] MEDS ORDERED: DEXAMETHASONE SOD PHOS 20 MG/5 ML VIAL. IV ONE (20:45)
[2018-07-12] MEDS ORDERED: IPRATRPIUM/ALBUTEROL 0.5/2.5MG 3 ML NEBU. NEB ONE (20:45)
[2018-07-12 21:07] LABS: BILIRUBIN,URINE NEGATIVE (NEG); CLARITY,URINE CLEAR; COLOR,URINE YELLOW; NITRITE,URINE NEGATIVE (NEG); PH,URINE 6.5; PROTEIN,URINE 30 mg/dL (NEG-TRACE); UROBILINOGEN,URINE 0.2 mg/dL (0.2 mg/dL)
[2018-07-12 21:08] LABS: % BANDS 2 % (0-9); % EOS 2 % (0-5); % LYMPHS 8 % (24-48); % MONOS 2 % (0-10); % SEGS 86 % (35-66); PLT ESTIMATE INCREASED (ADEQUATE)
--- NOTE | 2018-07-12 21:20 | RAD ---
PA and lateral chest x-ray COMPARISON: Chest x-ray April 22, 2017. HISTORY: Shortness of breath. FINDINGS: Patient is rotated to the left accentuating the size of the heart although in light of this there is likely borderline cardiomegaly similar the prior study. Calcified plaque thoracic aorta again noted. No pneumothorax, pulmonary opacities or pleural effusions. Stable interstitial densities right lung base likely sequela of chronic interstitial disease. Bones are unremarkable. IMPRESSION: No acute process. Stable exam. Electronically signed by: Jama Wray MD (07/12/2018 9:17 PM) [id number]
[2018-07-12 21:30] LABS: RBC,URINE OCC /HPF (0-2)
[2018-07-12 21:31] LABS: BACTERIA,URINE 0 /HPF (0-FEW); SQUAMOUS EPITHELIAL CELL,UR OCC /LPF
[2018-07-12] MEDS ORDERED: DOXYCYCLINE HYCLATE 100 MG in IV DEXTROSE 5% 100ML 100 ML IV ONE (22:15)
--- NOTE | 2018-07-13 00:03 | PHYS DOC ---
Past Medical History Past Medical History: COPD, High Cholesterol, Hypertension, Pneumonia Additional Past Medical Histor: CELLULITIS (MARGARITO STYLES APRN) Past Surgical History: No Surgical History (MARGARITO STYLES APRN) Alcohol Use: None Drug Use: None (MARGARITO STYLES APRN) Adult General Chief Complaint Chief Complaint: MULTIPLE COMPLAINTS HPI HPI Patient is a 83 year old female who presents to the ER, accompanied by family, with complaints of shortness of breath, productive cough, and fever at home today. Pt reports that she is a smoker and has a hx of COPD. She denies any chest pain, nausea, vomiting, diarrhea, or abdominal pain. On arrival her room air O2 saturation was 72%, pt does not wear oxygen at home. She denies any pain at this time and is speaking 2-3 words at a time. Pt was placed on O2 at 3L/nc and saturation increased to 93-94% with oxygen. (MARGARITO STYLES APRN) Review of Systems Review of Systems Constitutional: reports fever at home Eyes: Denies changes HENT: Denies nasal congestion or sore throat [] Respiratory: See HPI Cardiovascular: No additional information not addressed in HPI [] GI: Denies abdominal pain, nausea, vomiting, or diarrhea [] : Denies dysuria or hematuria [] Musculoskeletal: Denies back pain or joint pain [] Integument: Denies rash or skin lesions [] Neurologic: Denies headache, focal weakness or sensory changes [] All other systems were reviewed and found to be within normal limits, except as documented in this note. (MARGARITO STYLES APRN) Current Medications Current Medications Current Medications Medications (Trade) Dose Ordered Sig/Chato Start Time Stop Time Status Last Admin Dose Admin Albuterol/ Ipratropium (Duoneb) 3 ml 1X ONCE 07/12/18 20:45 07/12/18 20:46 DC 07/12/18 20:37 3 ML Dexamethasone Sodium Phosphate (Decadron) 10 mg 1X ONCE 07/12/18 20:45 07/12/18 20:46 DC 07/12/18 20:25 10 MG (APURVA WARE MD) Allergies Allergies Allergies Coded Allergies Type Severity Reaction Last Updated Verified Penicillins Allergy Intermediate RASH/HIVES 01/20/18 Yes (APURVA WARE MD) Physical Exam Physical Exam Constitutional: Well developed, well nourished, moderate distress, non-toxic appearance. [] HENT: Normocephalic, atraumatic, bilateral external ears normal, oropharynx moist, nose normal. [] Eyes: conjunctiva normal, no discharge. [] Neck: Normal range of motion, no stridor. [] Cardiovascular:Heart rate regular rhythm, no murmur [] Lungs & Thorax: Bilateral breath sounds expiratory wheezes, diminished in bases , intercostal retractions, speaking 2-3 words at a time, respiratory distress noted. Skin: Warm, dry, no erythema, no rash. [] Extremities: No cyanosis, no clubbing, no edema. [] Neurologic: Alert and oriented X 3, no focal deficits noted. [] Psychologic: Affect normal, judgement normal, mood normal. [] (MARGARITO STYLES APRN) Current Patient Data Vital Signs Vital Signs Date Time Temp Pulse Resp B/P (MAP) Pulse Ox O2 Delivery O2 Flow Rate FiO2 07/12/18 21:39 96 142/63 (89) 93 Nasal Cannula 3.0 07/12/18 20:00 99.5 19 99.5 (APURVA WARE MD) Lab Values Laboratory Tests Test 07/12/18 20:09 07/12/18 20:15 07/12/18 21:00 White Blood Count 11.7 x10^3/uL (4.0-11.0) H Red Blood Count 4.05 x10^6/uL (3.50-5.40) Hemoglobin 12.1 g/dL (12.0-15.5) Hematocrit 38.2 % (36.0-47.0) Mean Corpuscular Volume 94 fL (79-100) Mean Corpuscular Hemoglobin 30 pg (25-35) Mean Corpuscular Hemoglobin Concent 32 g/dL (31-37) Red Cell Distribution Width 17.5 % (11.5-14.5) H Platelet Count 421 x10^3/uL (140-400) H Neutrophils (%) (Auto) 87 % (31-73) H Lymphocytes (%) (Auto) 9 % (24-48) L Monocytes (%) (Auto) 4 % (0-9) Eosinophils (%) (Auto) 0 % (0-3) Basophils (%) (Auto) 0 % (0-3) Neutrophils # (Auto) 10.2 x10^3uL (1.8-7.7) H Lymphocytes # (Auto) 1.0 x10^3/uL (1.0-4.8) Monocytes # (Auto) 0.5 x10^3/uL (0.0-1.1) Eosinophils # (Auto) 0.0 x10^3/uL (0.0-0.7) Basophils # (Auto) 0.0 x10^3/uL (0.0-0.2) Segmented Neutrophils % 86 % (35-66) H Band Neutrophils % 2 % (0-9) Lymphocytes % 8 % (24-48) L Monocytes % 2 % (0-10) Eosinophils % 2 % (0-5) Platelet Estimate Increased (ADEQUATE) Prothrombin Time 13.2 SEC (11.7-14.0) Prothrombin Time INR 1.0 (0.8-1.1) Sodium Level 142 mmol/L (136-145) Potassium Level 4.7 mmol/L (3.5-5.1) Chloride Level 101 mmol/L (98-107) Carbon Dioxide Level 33 mmol/L (21-32) H Anion Gap 8 (6-14) Blood Urea Nitrogen 16 mg/dL (7-20) Creatinine 1.2 mg/dL (0.6-1.0) H Estimated GFR (Cockcroft-Gault) 42.7 BUN/Creatinine Ratio 13 (6-20) Glucose Level 106 mg/dL (70-99) H Calcium Level 10.1 mg/dL (8.5-10.1) Magnesium Level 1.7 mg/dL (1.8-2.4) L Total Bilirubin 0.3 mg/dL (0.2-1.0) Aspartate Amino Transferase (AST) 37 U/L (15-37) Alanine Aminotransferase (ALT) 22 U/L (14-59) Alkaline Phosphatase 51 U/L (46-116) Troponin I Quantitative < 0.017 ng/mL (0.000-0.055) TY-Tgf-G-Type Natriuretic Peptide 311 pg/mL (0-449) Total Protein 8.2 g/dL (6.4-8.2) Albumin 3.1 g/dL (3.4-5.0) L Albumin/Globulin Ratio 0.6 (1.0-1.7) L Influenza Type A Antigen Negative (NEGATIVE) Influenza Type B Antigen Negative (NEGATIVE) Urine Collection Type Void Urine Color Yellow Urine Clarity Clear Urine pH 6.5 Urine Specific [place] <=1.005 Urine Protein 30 mg/dL (NEG-TRACE) Urine Glucose (UA) Negative mg/dL (NEG) Urine Ketones (Stick) Negative mg/dL (NEG) Urine Blood Negative (NEG) Urine Nitrite Negative (NEG) Urine Bilirubin Negative (NEG) Urine Urobilinogen Dipstick 0.2 mg/dL (0.2 mg/dL) Urine Leukocyte Esterase Negative (NEG) Urine RBC Occ /HPF (0-2) Urine WBC 5-10 /HPF (0-4) Urine Squamous Epithelial Cells Occ /LPF Urine Bacteria 0 /HPF (0-FEW) Laboratory Tests 07/12/18 20:09 Laboratory Tests 07/12/18 20:09 Microbiology 07/12/18 Urine Culture - Final, Complete 07/12/18 Urine Culture Result 1 (HOOD) - Final, Complete (APURVA WARE MD) EKG EKG 0041- sinus rhythm with PACs, left axis deviation, no STEMI, rate [address] Ware.[] (MARGARITO STYLES APRN) Radiology/Procedures Radiology/Procedures PROCEDURE: CHEST PA & LATERAL PA and lateral chest x-ray COMPARISON: Chest x-ray April 22, 2017. HISTORY: Shortness of breath. FINDINGS: Patient is rotated to the left accentuating the size of the heart although in light of this there is likely borderline cardiomegaly similar the prior study. Calcified plaque thoracic aorta again noted. No pneumothorax, pulmonary opacities or pleural effusions. Stable interstitial densities right lung base likely sequela of chronic interstitial disease. Bones are unremarkable. IMPRESSION: No acute process. Stable exam.[] (MARGARITO STYLES APRN) Course & Med Decision Making Course & Med Decision Making Pertinent Labs and Imaging studies reviewed. (See chart for details) DX: COPD exacerbation Pt was given a duoneb treatmetn and 10 of IV decadron in the ER, she reports feeling better after these medications. WBC 11.7, glucose 106, Twisting Frame Fixer 1.2, trop < 0.017, influenza testing negative. CXR no acute findings. Spoke with Dr. Reina will admit pt for COPD exacerbation. [] (MARGARITO STYLES APRN) Course & Med Decision Making Staff Physician Addendum: I was working in the ER during the course of this patient's visit. I was available for consultation as needed, but I was not directly involved in the care of this patient. (APURVA WARE MD) Dragon Disclaimer Dragon Disclaimer This electronic medical record was generated, in whole or in part, using a voice recognition dictation system. (MARGARITO STYLES APRN) Departure Departure Impression: Primary Impression: COPD exacerbation Additional Impression: Hypoxemia Disposition: ADMITTED INPATIENT Admitting Physician: Maikel Reina (MARGARITO STYLES APRN) Condition: STABLE Referrals: EDMODN LLAMAS MD (PCP) Problem Qualifiers MARGARITO STYLES APRN Jul 13, 2018 00:03 APURVA WARE MD Jul 17, 2018 08:28
[2018-07-13] MEDS ORDERED: CIPROFLOXACIN 400MG PREMIX 200 ML IV ONE (02:30)
[2018-07-13 02:54] VITALS: BP 122/48
[2018-07-13 07:00] VITALS: BP 120/58
[2018-07-13] MEDS ORDERED: CRESTOR5 MG PO (07:37)
[2018-07-13] MEDS ORDERED: DOXYCYCLINE HYCLATE 100 MG in IV DEXTROSE 5% 100ML 100 ML IV SCH (09:00)
[2018-07-13] MEDS: IPRATRPIUM/ALBUTEROL 0.5/2.5MG 3 ML NEBU. NEB SCH ×2 (09:05→12:15)
[2018-07-13] MEDS ORDERED: NICOTINE 21MG PATCH. TD PRN (09:45)
[2018-07-13] MEDS ORDERED: guaiFENesin DM 200MG/20MG 10 ML SYRUP PO PRN (09:45)
[2018-07-13] MEDS ORDERED: ASPIRIN CHEWABLE 81 MG TABLET. PO SCH (10:30)
[2018-07-13] MEDS ORDERED: amLODIPine BESYLATE 5 MG TABLET PO SCH (10:30)
[2018-07-13] MEDS ORDERED: LISINOPRIL 20 MG TABLET PO SCH (10:30)
[2018-07-13 11:00] VITALS: BP 123/50
[2018-07-13] MEDS ORDERED: IPRATRPIUM/ALBUTEROL 0.5/2.5MG 3 ML NEBU. NEB SCH (12:00)
--- NOTE | 2018-07-13 12:24 | PDOC1 ---
History and Physical Date of Admission Date of Admission DATE: 07/13/18 TIME: 12:18 Identification/Chief Complaint Chief Complaint SOA Source Source: Caregiver, Chart review, Patient History of Present Illness History of Present Illness 83-year-old female who has very good ADLs and IADLs for age, admitted for acute bronchitis/COPD exacerbation. MIld smoker. Some hypoxia but has since resolved. So far seemingly no PT needs. WBC 11.7 with normal chest x-ray. Creatinine 1.2 stable. She is looking fine and I think might be able to go home in 24-48 hrs. Pulmonary consulted and has not yet seen RN had no issues today, discussed with RN at bedside Past Medical History Cardiovascular: Hyperlipidemia Pulmonary: Bronchitis, COPD Hepatobiliary: No pertinent hx Musculoskeletal: Osteoarthritis Past Surgical History Past Surgical History: No pertinent history Family History Family History: High Cholestrol, Hypertension Social History Smoke: <1 pack per day ALCOHOL: none Drugs: None Current Medications Current Medications Current Medications Albuterol/ Ipratropium (Duoneb) 3 ml 1X ONCE NEB Last administered on at 20:37; Start 07/12/18 at 20:45; Stop 07/12/18 at 20:46; Status DC Dexamethasone Sodium Phosphate (Decadron) 10 mg 1X ONCE IV Last administered on 07/12/18at 20:25; Start 07/12/18 at 20:45; Stop 07/12/18 at 20:46; Status DC Doxycycline Hyclate 100 mg/ Dextrose 100 ml @ 50 mls/hr 1X ONCE IV Last administered on 07/12/18at 22:32; Start 07/12/18 at 22:15; Stop 07/13/18 at 00:14 ; Status DC Albuterol/ Ipratropium (Duoneb) 3 ml RTQID NEB Last administered on 07/13/18at 12:15; Start 07/13/18 at 08:00; Stop 07/14/18 at 07:59 Doxycycline Hyclate 100 mg/ Dextrose 100 ml @ 50 mls/hr BID IV Last administered on 07/13/18at 09:11; Start 07/13/18 at 09:00; Stop 07/13/18 at 09:40 ; Status DC Ciprofloxacin/ Dextrose 200 ml @ 200 mls/hr 1X ONCE IV Last administered on at 03:16; Start 07/13/18 at 02:30; Stop 07/13/18 at 03:29; Status DC Guaifenesin (Robitussin Dm) 10 ml PRN Q6HRS PRN PO COUGH; Start 07/13/18 at 09: 45 Doxycycline Hyclate (Vibra-Tab) 100 mg BID PO ; Start 07/13/18 at 21:00 Nicotine (Nicoderm Cq 21mg) 1 patch PRN DAILY PRN TD SMOKING CESSATION; Start 07/13/18 at 09:45 Albuterol/ Ipratropium (Duoneb) 3 ml RTQID NEB ; Start 07/13/18 at 12:00 Amlodipine Besylate (Norvasc) 5 mg DAILY PO Last administered on 07/13/18at 11: 49; Start 07/13/18 at 10:30 Aspirin (Children'S Aspirin) 81 mg DAILY PO Last administered on 07/13/18at 11: 47; Start 07/13/18 at 10:30 Lisinopril (Prinivil) 20 mg BID PO Last administered on 07/13/18at 11:48; Start 07/13/18 at 10:30 Atorvastatin Calcium (Lipitor) 20 mg MoWeFr@2100 PO ; Start 07/13/18 at 21:00 Active Scripts Active Reported Crestor (Rosuvastatin Calcium) 5 Mg Tablet 5 Mg PO QMWF Aspirin 81 Mg Tab.chew 1 Tab PO DAILY Amlodipine Besylate 5 Mg Tablet 5 Mg PO DAILY Lisinopril 20 Mg Tablet 1 Tab PO BID Allergies Allergies: Coded Allergies: Penicillins (Verified Allergy, Intermediate, RASH/HIVES, 01/20/18) ROS Review of System as per history of present illness, the rest of ROS 14 point negative Physical Exam General: No acute distress HEENT: Atraumatic, PERRLA Lungs: Normal air movement, Other (decrease breath sounds some mild wheezing bases, symmetrical chest expansion) Heart: S1S2, RRR, no thrills, no rubs, no gallops, no murmurs Cardiovascular: S1, S2 Breasts: Normal, Rt breast nml w/o mass, Lt breast nml w/o mass, Nipples normal Abdomen: Normal bowel sounds, Soft, No tenderness, No hepatosplenomegaly, No masses Rectal Exam: not examined PELVIC: Nml ext genitalia Extremities: No clubbing, No cyanosis, No edema, Normal pulses, No tenderness/ swelling Skin: No rashes, No breakdown, No significant lesion Neuro: Normal gait, Normal speech, Strength at 5/5 X4 ext, Normal tone, Sensation intact, Cranial nerves 3-12 NL, Reflexes 2+ Psych/Mental Status: Mental status NL Vitals Vitals Vital Signs Date Time Temp Pulse Resp B/P (MAP) Pulse Ox O2 Delivery O2 Flow Rate FiO2 07/13/18 12:16 93 Nasal Cannula 3.0 07/13/18 11:49 90 123/50 07/13/18 11:00 98.9 16 98.9 Labs Labs Laboratory Tests Test 07/12/18 20:09 07/12/18 20:15 07/12/18 21:00 White Blood Count 11.7 x10^3/uL (4.0-11.0) Red Blood Count 4.05 x10^6/uL (3.50-5.40) Hemoglobin 12.1 g/dL (12.0-15.5) Hematocrit 38.2 % (36.0-47.0) Mean Corpuscular Volume 94 fL (79-100) Mean Corpuscular Hemoglobin 30 pg (25-35) Mean Corpuscular Hemoglobin Concent 32 g/dL (31-37) Red Cell Distribution Width 17.5 % (11.5-14.5) Platelet Count 421 x10^3/uL (140-400) Neutrophils (%) (Auto) 87 % (31-73) Lymphocytes (%) (Auto) 9 % (24-48) Monocytes (%) (Auto) 4 % (0-9) Eosinophils (%) (Auto) 0 % (0-3) Basophils (%) (Auto) 0 % (0-3) Neutrophils # (Auto) 10.2 x10^3uL (1.8-7.7) Lymphocytes # (Auto) 1.0 x10^3/uL (1.0-4.8) Monocytes # (Auto) 0.5 x10^3/uL (0.0-1.1) Eosinophils # (Auto) 0.0 x10^3/uL (0.0-0.7) Basophils # (Auto) 0.0 x10^3/uL (0.0-0.2) Segmented Neutrophils % 86 % (35-66) Band Neutrophils % 2 % (0-9) Lymphocytes % 8 % (24-48) Monocytes % 2 % (0-10) Eosinophils % 2 % (0-5) Platelet Estimate Increased (ADEQUATE) Prothrombin Time 13.2 SEC (11.7-14.0) Prothromb Time International Ratio 1.0 (0.8-1.1) Sodium Level 142 mmol/L (136-145) Potassium Level 4.7 mmol/L (3.5-5.1) Chloride Level 101 mmol/L (98-107) Carbon Dioxide Level 33 mmol/L (21-32) Anion Gap 8 (6-14) Blood Urea Nitrogen 16 mg/dL (7-20) Creatinine 1.2 mg/dL (0.6-1.0) Estimated GFR (Cockcroft-Gault) 42.7 BUN/Creatinine Ratio 13 (6-20) Glucose Level 106 mg/dL (70-99) Calcium Level 10.1 mg/dL (8.5-10.1) Magnesium Level 1.7 mg/dL (1.8-2.4) Total Bilirubin 0.3 mg/dL (0.2-1.0) Aspartate Amino Transf (AST/SGOT) 37 U/L (15-37) Alanine Aminotransferase (ALT/SGPT) 22 U/L (14-59) Alkaline Phosphatase 51 U/L (46-116) Troponin I Quantitative < 0.017 ng/mL (0.000-0.055) GJ-Rom-W-Type Natriuretic Peptide 311 pg/mL (0-449) Total Protein 8.2 g/dL (6.4-8.2) Albumin 3.1 g/dL (3.4-5.0) Albumin/Globulin Ratio 0.6 (1.0-1.7) Influenza Type A Antigen Negative (NEGATIVE) Influenza Type B Antigen Negative (NEGATIVE) Urine Collection Type Void Urine Color Yellow Urine Clarity Clear Urine pH 6.5 Urine Specific [place] <=1.005 Urine Protein 30 mg/dL (NEG-TRACE) Urine Glucose (UA) Negative mg/dL (NEG) Urine Ketones (Stick) Negative mg/dL (NEG) Urine Blood Negative (NEG) Urine Nitrite Negative (NEG) Urine Bilirubin Negative (NEG) Urine Urobilinogen Dipstick 0.2 mg/dL (0.2 mg/dL) Urine Leukocyte Esterase Negative (NEG) Urine RBC Occ /HPF (0-2) Urine WBC 5-10 /HPF (0-4) Urine Squamous Epithelial Cells Occ /LPF Urine Bacteria 0 /HPF (0-FEW) Laboratory Tests Test 07/12/18 20:09 07/12/18 20:15 07/12/18 21:00 White Blood Count 11.7 x10^3/uL (4.0-11.0) Red Blood Count 4.05 x10^6/uL (3.50-5.40) Hemoglobin 12.1 g/dL (12.0-15.5) Hematocrit 38.2 % (36.0-47.0) Mean Corpuscular Volume 94 fL (79-100) Mean Corpuscular Hemoglobin 30 pg (25-35) Mean Corpuscular Hemoglobin Concent 32 g/dL (31-37) Red Cell Distribution Width 17.5 % (11.5-14.5) Platelet Count 421 x10^3/uL (140-400) Neutrophils (%) (Auto) 87 % (31-73) Lymphocytes (%) (Auto) 9 % (24-48) Monocytes (%) (Auto) 4 % (0-9) Eosinophils (%) (Auto) 0 % (0-3) Basophils (%) (Auto) 0 % (0-3) Neutrophils # (Auto) 10.2 x10^3uL (1.8-7.7) Lymphocytes # (Auto) 1.0 x10^3/uL (1.0-4.8) Monocytes # (Auto) 0.5 x10^3/uL (0.0-1.1) Eosinophils # (Auto) 0.0 x10^3/uL (0.0-0.7) Basophils # (Auto) 0.0 x10^3/uL (0.0-0.2) Segmented Neutrophils % 86 % (35-66) Band Neutrophils % 2 % (0-9) Lymphocytes % 8 % (24-48) Monocytes % 2 % (0-10) Eosinophils % 2 % (0-5) Platelet Estimate Increased (ADEQUATE) Prothrombin Time 13.2 SEC (11.7-14.0) Prothromb Time International Ratio 1.0 (0.8-1.1) Sodium Level 142 mmol/L (136-145) Potassium Level 4.7 mmol/L (3.5-5.1) Chloride Level 101 mmol/L (98-107) Carbon Dioxide Level 33 mmol/L (21-32) Anion Gap 8 (6-14) Blood Urea Nitrogen 16 mg/dL (7-20) Creatinine 1.2 mg/dL (0.6-1.0) Estimated GFR (Cockcroft-Gault) 42.7 BUN/Creatinine Ratio 13 (6-20) Glucose Level 106 mg/dL (70-99) Calcium Level 10.1 mg/dL (8.5-10.1) Magnesium Level 1.7 mg/dL (1.8-2.4) Total Bilirubin 0.3 mg/dL (0.2-1.0) Aspartate Amino Transf (AST/SGOT) 37 U/L (15-37) Alanine Aminotransferase (ALT/SGPT) 22 U/L (14-59) Alkaline Phosphatase 51 U/L (46-116) Troponin I Quantitative < 0.017 ng/mL (0.000-0.055) FK-Guv-O-Type Natriuretic Peptide 311 pg/mL (0-449) Total Protein 8.2 g/dL (6.4-8.2) Albumin 3.1 g/dL (3.4-5.0) Albumin/Globulin Ratio 0.6 (1.0-1.7) Influenza Type A Antigen Negative (NEGATIVE) Influenza Type B Antigen Negative (NEGATIVE) Urine Collection Type Void Urine Color Yellow Urine Clarity Clear Urine pH 6.5 Urine Specific [place] <=1.005 Urine Protein 30 mg/dL (NEG-TRACE) Urine Glucose (UA) Negative mg/dL (NEG) Urine Ketones (Stick) Negative mg/dL (NEG) Urine Blood Negative (NEG) Urine Nitrite Negative (NEG) Urine Bilirubin Negative (NEG) Urine Urobilinogen Dipstick 0.2 mg/dL (0.2 mg/dL) Urine Leukocyte Esterase Negative (NEG) Urine RBC Occ /HPF (0-2) Urine WBC 5-10 /HPF (0-4) Urine Squamous Epithelial Cells Occ /LPF Urine Bacteria 0 /HPF (0-FEW) VTE Prophylaxis Ordered VTE Prophylaxis Devices: Yes VTE Pharmacological Prophylaxi: Yes Assessment/Plan Assessment/Plan Acute bronchitis, no pneumonia on chest x-ray COPD exacerbation Smoker Geriatric Mild leukocytosis Plan: await pulmo consult CPM Home meds have been reconciled Might be able to DC later PM or tomorrow morning Seemingly no PT needs REMEDIOS BRYANT MD Jul 13, 2018 12:24
--- NOTE | 2018-07-13 13:11 | EKG ---
[facility] [address] [place] [address] Test Date: 2018-07-13 Test Time: 00:41:20 Pat Name: ANNMARIE RIVERO Department: Room: 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
--- NOTE | 2018-07-13 13:53 | PDOC3 ---
Discharge Summary Visit Information Date of Admission: Jul 12, 2018 Date of Discharge: Jul 13, 2018 Final Diagnosis Acute bronchitis, no pneumonia on chest x-ray COPD exacerbation Smoker Geriatric Mild leukocytosis Brief Hospital Course Allergies Allergies Coded Allergies Type Severity Reaction Last Updated Verified Penicillins Allergy Intermediate RASH/HIVES 01/20/18 Yes Vital Signs Vital Signs Date Time Temp Pulse Resp B/P (MAP) Pulse Ox O2 Delivery O2 Flow Rate FiO2 07/13/18 12:16 93 Nasal Cannula 3.0 07/13/18 11:49 90 123/50 07/13/18 11:00 98.9 16 98.9 Lab Results Laboratory Tests Test 07/12/18 20:09 07/12/18 20:15 07/12/18 21:00 White Blood Count 11.7 x10^3/uL (4.0-11.0) Red Blood Count 4.05 x10^6/uL (3.50-5.40) Hemoglobin 12.1 g/dL (12.0-15.5) Hematocrit 38.2 % (36.0-47.0) Mean Corpuscular Volume 94 fL (79-100) Mean Corpuscular Hemoglobin 30 pg (25-35) Mean Corpuscular Hemoglobin Concent 32 g/dL (31-37) Red Cell Distribution Width 17.5 % (11.5-14.5) Platelet Count 421 x10^3/uL (140-400) Neutrophils (%) (Auto) 87 % (31-73) Lymphocytes (%) (Auto) 9 % (24-48) Monocytes (%) (Auto) 4 % (0-9) Eosinophils (%) (Auto) 0 % (0-3) Basophils (%) (Auto) 0 % (0-3) Neutrophils # (Auto) 10.2 x10^3uL (1.8-7.7) Lymphocytes # (Auto) 1.0 x10^3/uL (1.0-4.8) Monocytes # (Auto) 0.5 x10^3/uL (0.0-1.1) Eosinophils # (Auto) 0.0 x10^3/uL (0.0-0.7) Basophils # (Auto) 0.0 x10^3/uL (0.0-0.2) Segmented Neutrophils % 86 % (35-66) Band Neutrophils % 2 % (0-9) Lymphocytes % 8 % (24-48) Monocytes % 2 % (0-10) Eosinophils % 2 % (0-5) Platelet Estimate Increased (ADEQUATE) Prothrombin Time 13.2 SEC (11.7-14.0) Prothromb Time International Ratio 1.0 (0.8-1.1) Sodium Level 142 mmol/L (136-145) Potassium Level 4.7 mmol/L (3.5-5.1) Chloride Level 101 mmol/L (98-107) Carbon Dioxide Level 33 mmol/L (21-32) Anion Gap 8 (6-14) Blood Urea Nitrogen 16 mg/dL (7-20) Creatinine 1.2 mg/dL (0.6-1.0) Estimated GFR (Cockcroft-Gault) 42.7 BUN/Creatinine Ratio 13 (6-20) Glucose Level 106 mg/dL (70-99) Calcium Level 10.1 mg/dL (8.5-10.1) Magnesium Level 1.7 mg/dL (1.8-2.4) Total Bilirubin 0.3 mg/dL (0.2-1.0) Aspartate Amino Transf (AST/SGOT) 37 U/L (15-37) Alanine Aminotransferase (ALT/SGPT) 22 U/L (14-59) Alkaline Phosphatase 51 U/L (46-116) Troponin I Quantitative < 0.017 ng/mL (0.000-0.055) NU-Flm-N-Type Natriuretic Peptide 311 pg/mL (0-449) Total Protein 8.2 g/dL (6.4-8.2) Albumin 3.1 g/dL (3.4-5.0) Albumin/Globulin Ratio 0.6 (1.0-1.7) Influenza Type A Antigen Negative (NEGATIVE) Influenza Type B Antigen Negative (NEGATIVE) Urine Collection Type Void Urine Color Yellow Urine Clarity Clear Urine pH 6.5 Urine Specific Hobbs <=1.005 Urine Protein 30 mg/dL (NEG-TRACE) Urine Glucose (UA) Negative mg/dL (NEG) Urine Ketones (Stick) Negative mg/dL (NEG) Urine Blood Negative (NEG) Urine Nitrite Negative (NEG) Urine Bilirubin Negative (NEG) Urine Urobilinogen Dipstick 0.2 mg/dL (0.2 mg/dL) Urine Leukocyte Esterase Negative (NEG) Urine RBC Occ /HPF (0-2) Urine WBC 5-10 /HPF (0-4) Urine Squamous Epithelial Cells Occ /LPF Urine Bacteria 0 /HPF (0-FEW) Laboratory Tests Test 07/12/18 20:09 07/12/18 20:15 07/12/18 21:00 White Blood Count 11.7 x10^3/uL (4.0-11.0) Red Blood Count 4.05 x10^6/uL (3.50-5.40) Hemoglobin 12.1 g/dL (12.0-15.5) Hematocrit 38.2 % (36.0-47.0) Mean Corpuscular Volume 94 fL (79-100) Mean Corpuscular Hemoglobin 30 pg (25-35) Mean Corpuscular Hemoglobin Concent 32 g/dL (31-37) Red Cell Distribution Width 17.5 % (11.5-14.5) Platelet Count 421 x10^3/uL (140-400) Neutrophils (%) (Auto) 87 % (31-73) Lymphocytes (%) (Auto) 9 % (24-48) Monocytes (%) (Auto) 4 % (0-9) Eosinophils (%) (Auto) 0 % (0-3) Basophils (%) (Auto) 0 % (0-3) Neutrophils # (Auto) 10.2 x10^3uL (1.8-7.7) Lymphocytes # (Auto) 1.0 x10^3/uL (1.0-4.8) Monocytes # (Auto) 0.5 x10^3/uL (0.0-1.1) Eosinophils # (Auto) 0.0 x10^3/uL (0.0-0.7) Basophils # (Auto) 0.0 x10^3/uL (0.0-0.2) Segmented Neutrophils % 86 % (35-66) Band Neutrophils % 2 % (0-9) Lymphocytes % 8 % (24-48) Monocytes % 2 % (0-10) Eosinophils % 2 % (0-5) Platelet Estimate Increased (ADEQUATE) Prothrombin Time 13.2 SEC (11.7-14.0) Prothromb Time International Ratio 1.0 (0.8-1.1) Sodium Level 142 mmol/L (136-145) Potassium Level 4.7 mmol/L (3.5-5.1) Chloride Level 101 mmol/L (98-107) Carbon Dioxide Level 33 mmol/L (21-32) Anion Gap 8 (6-14) Blood Urea Nitrogen 16 mg/dL (7-20) Creatinine 1.2 mg/dL (0.6-1.0) Estimated GFR (Cockcroft-Gault) 42.7 BUN/Creatinine Ratio 13 (6-20) Glucose Level 106 mg/dL (70-99) Calcium Level 10.1 mg/dL (8.5-10.1) Magnesium Level 1.7 mg/dL (1.8-2.4) Total Bilirubin 0.3 mg/dL (0.2-1.0) Aspartate Amino Transf (AST/SGOT) 37 U/L (15-37) Alanine Aminotransferase (ALT/SGPT) 22 U/L (14-59) Alkaline Phosphatase 51 U/L (46-116) Troponin I Quantitative < 0.017 ng/mL (0.000-0.055) YK-Qzf-G-Type Natriuretic Peptide 311 pg/mL (0-449) Total Protein 8.2 g/dL (6.4-8.2) Albumin 3.1 g/dL (3.4-5.0) Albumin/Globulin Ratio 0.6 (1.0-1.7) Influenza Type A Antigen Negative (NEGATIVE) Influenza Type B Antigen Negative (NEGATIVE) Urine Collection Type Void Urine Color Yellow Urine Clarity Clear Urine pH 6.5 Urine Specific Hobbs <=1.005 Urine Protein 30 mg/dL (NEG-TRACE) Urine Glucose (UA) Negative mg/dL (NEG) Urine Ketones (Stick) Negative mg/dL (NEG) Urine Blood Negative (NEG) Urine Nitrite Negative (NEG) Urine Bilirubin Negative (NEG) Urine Urobilinogen Dipstick 0.2 mg/dL (0.2 mg/dL) Urine Leukocyte Esterase Negative (NEG) Urine RBC Occ /HPF (0-2) Urine WBC 5-10 /HPF (0-4) Urine Squamous Epithelial Cells Occ /LPF Urine Bacteria 0 /HPF (0-FEW) Brief Hospital Course Ms. Carrillo is a 83 old [sex] who presented with [ ] 83-year-old female who has very good ADLs and IADLs for age, admitted for acute bronchitis/COPD exacerbation. MIld smoker. Some hypoxia but has since resolved. So far seemingly no PT needs. WBC 11.7 with normal chest x-ray. Creatinine 1.2 stable. She is looking fine and I think might be able to go home in 24-48 hrs. Pulmonary consulted and has not yet seen RN had no issues today, discussed with RN at bedside Home today,cleard by pulmo, no PT needs Discharge Information Condition at Discharge: Improved, Stable Disposition/Orders: D/C to Home Scheduled Amlodipine Besylate (Amlodipine Besylate) 5 Mg Tablet, 5 MG PO DAILY, (Reported) Entered as Reported by: MARKEL ALEJO on 01/20/182047 Last Action: Continued on 07/13/18931 by REMEDIOS BRYANT Aspirin (Aspirin) 81 Mg Tab.chew, 1 TAB PO DAILY, #30 Ref 3 (Reported) Entered as Reported by: MARKEL ALEJO on 01/20/182047 Last Action: Continued on 07/13/18931 by REMEDIOS BRYANT Lisinopril (Lisinopril) 20 Mg Tablet, 1 TAB PO BID, #30 Ref 5 (Reported) Entered as Reported by: MARKEL ALEJO on 01/20/182047 Last Action: Continued on 07/13/18931 by REMEDIOS BRYANT Rosuvastatin Calcium (Crestor) 5 Mg Tablet, 5 MG PO QMWF for FOR CHOLESTEROL, # 30 Ref 0 (Reported) Entered as Reported by: ANT BAXTER on 07/13/18 0737 Last Action: Converted on 07/13/18931 by REMEDIOS COOK MD Jul 13, 2018 13:53
--- NOTE | 2018-07-13 14:34 | CONS ---
DATE OF CONSULTATION: ATTENDING PHYSICIAN: Dr. Reina. REASON FOR CONSULTATION: Dyspnea. HISTORY OF PRESENT ILLNESS: The patient is an 83-year-old who has been a smoker for 60 years and continues to smoke cigarettes. She came into the hospital with complaint of sore throat and also sinus drainage. She says she did not have any increased shortness of breath. No cough, no fever, no chills, no chest pains. The patient was noted to be mildly hypoxic on admission. As a result, she was placed on 2 liters of oxygen. Normally, she does not use oxygen at home. The patient's chest x-ray was clear. She feels much better and wants to go home. She said her only complaint was sore throat and sinus drainage. PAST MEDICAL HISTORY: Significant for history of suspected COPD, history of hyperlipidemia, osteoarthritis. PAST SURGICAL HISTORY: None. FAMILY HISTORY: Dyslipidemia and hypertension. SOCIAL HISTORY: Smoker for 60 years and continues to smoke less than 1 pack per day. ALLERGIES: PENICILLIN. MEDICATIONS: Include DuoNebs and doxycycline. REVIEW OF SYSTEMS: Twelve-point system obtained. Pertinent positives discussed in my history of present illness, otherwise noncontributory. All systems that were negative were reviewed as well. PHYSICAL EXAMINATION: VITAL SIGNS: Stable. Pulse ox 96% on 3 liters. NECK: Supple. LUNGS: Clear. CARDIOVASCULAR: Regular rate and rhythm. ABDOMEN: Soft. EXTREMITIES: With no pitting edema. LABORATORY DATA: Reviewed. White cell count 11.7, hemoglobin 12.1, platelets are 421, BUN and creatinine 16 and 1.2. Influenza screen is negative. IMPRESSION: 1. Dyspnea related to possible mild chronic obstructive pulmonary disease exacerbation, triggered by postnasal drainage. 2. No definite infiltrates seen on the chest x-ray. 3. Ongoing tobaccoism for 60 years, suspect underlying severe chronic obstructive pulmonary disease. RECOMMENDATIONS: 1. Discussed with the patient regarding importance of tobacco cessation. She does not have any desire to quit cigarettes. 2. Wean her off oxygen. 3. Oral antibiotics can be discontinued. 4. Continue DuoNeb. 5. From a pulmonary standpoint, she wants to go home and it is okay to discharge her home. Discussed with Dr. Rose. NADIA YE MD DR: LIBERTAD/bala JOB#: [id number] / [id number]
[2018-07-13 15:00] VITALS: BP 113/50
--- NOTE | 2018-07-13 15:53 | NUR ---
Discharge Note: ANNMARIE RIVERO Discharge instructions and discharge home medications reviewed with Patient and a copy given. All questions have been answered and understanding verbalized. The following instructions and handouts were given: COPD Discontinued lines and drains: peripheral line. Patient discharged to Home or Self Care with Family Member via Wheelchair
[2018-07-13] MEDS ORDERED: DOXYCYCLINE HYCLATE 100 MG TABLET PO SCH (21:00)
[2018-07-13] MEDS ORDERED: LACTOBACILLUS RHAMNOSUS GG 1 CAPSULE. PO SCH (21:00)
[2018-07-13] MEDS ORDERED: ATORVASTATIN CALCIUM 20 MG TABLET PO SCH (21:00)
[2018-07-14] MEDS ORDERED: VENTOLIN HFA18 GM INH (22:57)
[2018-07-14] MEDS ORDERED: FLUT1DIS3 IH (22:57)
[2018-07-17] MEDS ORDERED: DOXY100T PO (11:45)
[2018-07-17] MEDS ORDERED: OSEL30CA PO (11:45)
[2018-07-17] MEDS ORDERED: GUAI5SYR PO (11:45)
[2018-07-17] MEDS ORDERED: BENZ1LOZ4 PO (11:45)
[2018-07-17] MEDS ORDERED: Nicotine 21MG TD (11:45)
== END 2018-07-13 16:07 | disposition home or self-care (01) | DRG 190 ==
LOC: ER 19:58 → 5 NORTH 21:48
PROVIDERS: ADMIT Internal Medicine; ATTEND Internal Medicine
DX: J44.0 Chronic obstructive pulmonary disease with (acute) lower respiratory infection (principal); J96.01 Acute respiratory failure with hypoxia; J20.9 Acute bronchitis, unspecified; J44.1 Chronic obstructive pulmonary disease with (acute) exacerbation; E78.00 Pure hypercholesterolemia, unspecified; E78.5 Hyperlipidemia, unspecified; F17.210 Nicotine dependence, cigarettes, uncomplicated; I10 Essential (primary) hypertension; M19.90 Unspecified osteoarthritis, unspecified site; Z79.82 Long term (current) use of aspirin; Z79.899 Other long term (current) drug therapy; Z82.49 Family history of ischemic heart disease and other diseases of the circulatory system; Z88.0 Allergy status to penicillin
CPT/HCPCS: 36415; 71046; 80053; 81001; 83735; 83880; 84484; 85007; 85025; 85610; 87040; 87086; 87804; 93005; 94640; 94760; 96365; 96366; 96375; 96376; 99406; J0744; J1100; J3490; J7620; 99285-25

== ENCOUNTER 2018-07-14 18:26 | Inpatient (IN) | payer MEDICARE ==
[~2018-07-14] VITALS: Ht 154.9 cm; Wt 50.8 kg
[2018-07-14] MEDS ORDERED: IPRATRPIUM/ALBUTEROL 0.5/2.5MG 3 ML NEBU. NEB ONE (18:45)
[2018-07-14] MEDS ORDERED: methylPREDNISolone SOD SUCC PF 125 MG/2 ML VIAL. IV ONE (18:45)
--- NOTE | 2018-07-14 18:48 | PHYS DOC ---
Past Medical History Past Medical History: COPD, High Cholesterol, Hypertension, Pneumonia Additional Past Medical Histor: CELLULITIS Past Surgical History: No Surgical History Alcohol Use: None Drug Use: None Adult General Chief Complaint Chief Complaint: WEAKNESS/GENERALIZED HPI HPI Patient is a 83 year old old female presents with a chief complaint of generalized weakness associated with shortness of breath. She was admitted to the hospital on Friday for COPD exacerbation. Patient was discharged yesterday and sent home on Zithromax. Family states since discharge patient has progressively become weak. Patient states she has a cough with occasional sputum production. She states she also has a sore throat as well as some chest discomfort. Patient states her chest discomfort started prior to previous hospitalization and has never went away. Patient is on room air her initial oxygen saturation on arrrival was in the 80's. Review of Systems Review of Systems Constitutional: Denies fever or chills [] Eyes: Denies change in visual acuity, redness, or eye pain [] HENT: Denies nasal congestion or sore throat [] Respiratory: positive cough and shortness of breath [] Cardiovascular: No additional information not addressed in HPI [] GI: Denies abdominal pain, nausea, vomiting, bloody stools or diarrhea [] : Denies dysuria or hematuria [] Musculoskeletal: Denies back pain or joint pain [] Integument: Denies rash or skin lesions [] Neurologic: Denies headache, focal weakness or sensory changes [generalized weakness] Endocrine: Denies polyuria or polydipsia [] All other systems were reviewed and found to be within normal limits, except as documented in this note. Current Medications Current Medications Current Medications Medications (Trade) Dose Ordered Sig/Chato Start Time Stop Time Status Last Admin Dose Admin Albuterol/ Ipratropium (Duoneb) 3 ml 1X ONCE 07/14/18 18:45 07/14/18 18:46 DC 07/14/18 18:53 3 ML Methylprednisolone Sodium Succinate (SOLU-Medrol 125MG VIAL) 125 mg 1X ONCE 07/14/18 18:45 07/14/18 18:46 DC 07/14/18 19:07 125 MG Allergies Allergies Allergies Coded Allergies Type Severity Reaction Last Updated Verified Penicillins Allergy Intermediate RASH/HIVES 01/20/18 Yes Physical Exam Physical Exam Constitutional: Well developed, well nourished, no acute distress, non-toxic appearance. [] HENT: Normocephalic, atraumatic, bilateral external ears normal, oropharynx moist, no oral exudates, nose normal. [] Eyes: PERRLA, EOMI, conjunctiva normal, no discharge. [] Neck: Normal range of motion, no tenderness, supple, no stridor. [] Cardiovascular:Heart rate regular rhythm, no murmur [] Lungs & Thorax: Bilateral breath sounds clear to auscultation [] Abdomen: Bowel sounds normal, soft, no tenderness, no masses, no pulsatile masses. [] Skin: Warm, dry, no erythema, no rash. [] Back: No tenderness, no CVA tenderness. [] Extremities: No tenderness, no cyanosis, no clubbing, ROM intact, no edema. [] Neurologic: Alert and oriented X 3, normal motor function, normal sensory function, no focal deficits noted. [] Psychologic: Affect normal, judgement normal, mood normal. [] Current Patient Data Vital Signs Vital Signs Date Time Temp Pulse Resp B/P (MAP) Pulse Ox O2 Delivery O2 Flow Rate FiO2 07/14/18 18:50 80 Nasal Cannula 3.5 07/14/18 18:26 98.9 102 30 165/69 (101) 98.9 Lab Values Laboratory Tests Test 07/14/18 18:40 White Blood Count 11.8 x10^3/uL (4.0-11.0) H Red Blood Count 3.95 x10^6/uL (3.50-5.40) Hemoglobin 11.5 g/dL (12.0-15.5) L Hematocrit 37.2 % (36.0-47.0) Mean Corpuscular Volume 94 fL (79-100) Mean Corpuscular Hemoglobin 29 pg (25-35) Mean Corpuscular Hemoglobin Concent 31 g/dL (31-37) Red Cell Distribution Width 17.4 % (11.5-14.5) H Platelet Count 378 x10^3/uL (140-400) Neutrophils (%) (Auto) 95 % (31-73) H Lymphocytes (%) (Auto) 2 % (24-48) L Monocytes (%) (Auto) 3 % (0-9) Eosinophils (%) (Auto) 0 % (0-3) Basophils (%) (Auto) 1 % (0-3) Neutrophils # (Auto) 11.1 x10^3uL (1.8-7.7) H Lymphocytes # (Auto) 0.2 x10^3/uL (1.0-4.8) L Monocytes # (Auto) 0.4 x10^3/uL (0.0-1.1) Eosinophils # (Auto) 0.0 x10^3/uL (0.0-0.7) Basophils # (Auto) 0.1 x10^3/uL (0.0-0.2) Segmented Neutrophils % 97 % (35-66) H Band Neutrophils % 2 % (0-9) Monocytes % 1 % (0-10) Toxic Granulation Slight Toxic Vacuolation Slight Platelet Estimate Adequate (ADEQUATE) Polychromasia Slight Anisocytosis Slight Sodium Level 138 mmol/L (136-145) Potassium Level 4.6 mmol/L (3.5-5.1) Chloride Level 101 mmol/L (98-107) Carbon Dioxide Level 31 mmol/L (21-32) Anion Gap 6 (6-14) Blood Urea Nitrogen 27 mg/dL (7-20) H Creatinine 1.3 mg/dL (0.6-1.0) H Estimated GFR (Cockcroft-Gault) 38.9 BUN/Creatinine Ratio 21 (6-20) H Glucose Level 127 mg/dL (70-99) H Lactic Acid Level 1.1 mmol/L (0.4-2.0) Calcium Level 9.2 mg/dL (8.5-10.1) Total Bilirubin 0.3 mg/dL (0.2-1.0) Aspartate Amino Transferase (AST) 28 U/L (15-37) Alanine Aminotransferase (ALT) 20 U/L (14-59) Alkaline Phosphatase 46 U/L (46-116) Total Protein 7.8 g/dL (6.4-8.2) Albumin 2.9 g/dL (3.4-5.0) L Albumin/Globulin Ratio 0.6 (1.0-1.7) L Laboratory Tests 07/14/18 18:40 Laboratory Tests 07/14/18 18:40 EKG EKG [] Radiology/Procedures Radiology/Procedures [] Impressions: Wet Read Chest Xray COPD Course & Med Decision Making Course & Med Decision Making Pertinent Labs and Imaging studies reviewed. (See chart for details) []Patient was evaluated for chief complaint. Workup consisted of laboratory analysis and radiologic imaging and EKG. Results reviewed and discussed with patient and family. Treatment included Solu-Medrol and DuoNeb. Patient was admitted to Dr. Bruce and A consult was placed for Dr. Harding. Shahrzad Disclaimer Maryon Disclaimer This electronic medical record was generated, in whole or in part, using a voice recognition dictation system. Departure Departure Referrals: EDMOND LLAMAS MD (PCP) RIC SHER DO Jul 14, 2018 18:48
[2018-07-14 18:55] LABS: BASO # 0.1 x10^3/uL (0.0-0.2); BASO % 1 % (0-3); EOS % 0 % (0-3); HEMATOCRIT 37.2 % (36.0-47.0); HEMOGLOBIN 11.5 g/dL (12.0-15.5); LYMPH # 0.2 x10^3/uL (1.0-4.8); LYMPH % 2 % (24-48); MEAN CORPUSCULAR HEMOGLOBIN 29 pg (25-35); MEAN CORPUSCULAR HGB CONC 31 g/dL (31-37); MEAN CORPUSCULAR VOLUME 94 fL (79-100); MONO # 0.4 x10^3/uL (0.0-1.1); MONO % 3 % (0-9); NEUT # 11.1 x10^3uL (1.8-7.7); NEUT % 95 % (31-73); PLATELET COUNT 378 x10^3/uL (140-400); RED BLOOD COUNT 3.95 x10^6/uL (3.50-5.40); RED CELL DISTRIBUTION WIDTH 17.4 % (11.5-14.5); WHITE BLOOD COUNT 11.8 x10^3/uL (4.0-11.0)
[2018-07-14 19:05] LABS: CALCIUM 9.2 mg/dL (8.5-10.1); CREATININE 1.3 mg/dL (0.6-1.0); GFR 38.9; POTASSIUM 4.6 mmol/L (3.5-5.1)
[2018-07-14 19:16] LABS: ALBUMIN 2.9 g/dL (3.4-5.0); ALBUMIN/GLOBULIN RATIO 0.6 (1.0-1.7); TOTAL BILIRUBIN 0.3 mg/dL (0.2-1.0); TOTAL PROTEIN 7.8 g/dL (6.4-8.2)
[2018-07-14 19:42] LABS: % BANDS 2 % (0-9); % MONOS 1 % (0-10); % SEGS 97 % (35-66)
[2018-07-14 19:56] LABS: PLT ESTIMATE ADEQUATE (ADEQUATE); POLYCHROMASIA SLIGHT
[2018-07-14 20:02] LABS: ANISOCYTOSIS SLIGHT
[2018-07-14 20:03] LABS: TOXIC GRANULATION SLIGHT; TOXIC VACUOLATION SLIGHT
[2018-07-14 21:55] LABS: BILIRUBIN,URINE NEGATIVE (NEG); CLARITY,URINE CLEAR; COLOR,URINE YELLOW; NITRITE,URINE NEGATIVE (NEG); PH,URINE 5.5; PROTEIN,URINE 100 mg/dL (NEG-TRACE); UROBILINOGEN,URINE 0.2 mg/dL (0.2 mg/dL)
[2018-07-14 22:04] LABS: BACTERIA,URINE FEW /HPF (0-FEW); RBC,URINE 0 /HPF (0-2); SQUAMOUS EPITHELIAL CELL,UR MOD /LPF; WBC,URINE OCC /HPF (0-4)
[2018-07-14 22:05] LABS: BASE EXCESS ABG 4 mmol/L (-3-3); FIO2 ABG 36; HCO3 ABG 30 mmol/L (21-28); PCO2 ABG 55 mmHg (35-46); PO2 ABG 61 mmHg (65-108); SAT O2 ABG 89 % (92-99)
[2018-07-14 22:05] LABS: HYALINE CASTS, URINE OCCASIONAL /HPF
[2018-07-14 22:35] VITALS: BP 116/45
[2018-07-14] MEDS ORDERED: VENTOLIN HFA18 GM INH (22:57)
[2018-07-14] MEDS ORDERED: FLUT1DIS3 IH (22:57)
[2018-07-14 23:00] VITALS: BP 116/65
--- NOTE | 2018-07-15 00:02 | RAD ---
Indication:shortness of breath hypoxia TECHNIQUE:Portable AP chest X-ray COMPARISON:07/12/2018 FINDINGS: Heart is normal in size. Lungs are hyperinflated with coarse bilateral bronchial markings. No focal consolidation. No pneumothorax or pleural effusion. Visualized bony thorax is within normal limits. IMPRESSION: Findings of COPD with superimposed atypical/viral infection/bronchitis. Electronically signed by: Stewart Shelby DO (07/14/2018 11:59 PM) [id number]
[2018-07-15 03:00] VITALS: BP 100/74
[2018-07-15 07:00] VITALS: BP 122/51
[2018-07-15] MEDS ORDERED: guaiFENesin DM 200MG/20MG 10 ML SYRUP PO PRN (10:15)
[2018-07-15] MEDS ORDERED: BENZOCAINE/MENTHOL LOZENGE. PO PRN (10:30)
[2018-07-15] MEDS: amLODIPine BESYLATE 5 MG TABLET PO SCH (10:44)
[2018-07-15] MEDS: ASPIRIN CHEWABLE 81 MG TABLET. PO SCH (10:45)
[2018-07-15] MEDS: DOXYCYCLINE HYCLATE 100 MG TABLET PO SCH ×2 (10:45→20:38)
[2018-07-15] MEDS: LISINOPRIL 20 MG TABLET PO SCH ×2 (10:45→20:39)
[2018-07-15 11:00] VITALS: BP 138/55
[2018-07-15] MEDS: IPRATRPIUM/ALBUTEROL 0.5/2.5MG 3 ML NEBU. NEB SCH ×3 (11:36→19:45)
--- NOTE | 2018-07-15 11:51 | CONS ---
DATE OF CONSULTATION: PULMONARY CONSULTATION ATTENDING PHYSICIAN: Dr. Bruce. REASON FOR CONSULTATION: Dyspnea, cough and abnormal chest x-ray. HISTORY OF PRESENT ILLNESS: The patient is 83 years old who smoked for 60 years and still smokes cigarettes. She was admitted with shortness of breath. She said she has a cough, sore throat and also had subjective fever. Since in the hospital, she has been afebrile. The patient states that she was discharged the day before yesterday on oral Zithromax and was also treated for COPD exacerbation. No headaches. No nausea, no vomiting, no diarrhea, no dysuria, no focal weakness. No leg edema. Her chest x-ray showed prominent interstitial markings bilaterally. As a result, I have been asked to see her for further evaluation. PAST MEDICAL HISTORY: History of underlying COPD, could be severe, still smokes cigarettes; history of dyslipidemia; hypertension; pneumonia and cellulitis. PAST SURGICAL HISTORY: No surgeries. ALLERGIES: PENICILLIN. MEDICATIONS: Reviewed as listed in the MRAD, including antibiotics, doxycycline and Solu-Medrol along with DuoNebs. REVIEW OF SYSTEMS: Twelve-point system obtained. Pertinent positives discussed in my history of present illness, otherwise noncontributory. All systems that were negative were reviewed as well. SOCIAL HISTORY: Smoker for 60 years and continues to smoke 5-6 cigarettes a day. FAMILY HISTORY: Noncontributory to lungs. PHYSICAL EXAMINATION: VITAL SIGNS: Reviewed. Pulse ox 94% on 4 liters. She is not on home oxygen. NECK: Supple. LUNGS: Clear, with some anterior rhonchi and occasional wheezes. CARDIOVASCULAR EXAMINATION: Regular rate and rhythm. ABDOMEN: Soft, nontender. EXTREMITIES: With no pitting edema. LABORATORY DATA: Labs were reviewed. White cell count 11.8, hemoglobin 11.5 and platelets are 378,000. BUN and creatinine 27 and 1.3. ABGs with a pH of 7.36, pCO2 of 55 and a pO2 of 61 on 36% FIO2. IMPRESSION: 1. Dyspnea with acute hypoxic respiratory failure, likely related to an infectious etiology and viral pneumonitis is highly suspected. Need to rule out any interstitial edema as well by doing a noncontrast CT chest. 2. Abnormal chest x-ray with prominent interstitial markings. Could be viral infection versus mild interstitial edema. We will obtain noncontrast CT chest and may need an echo if it favors congestive heart failure. 3. Underlying chronic obstructive pulmonary disease with mild exacerbation, smoker for 60 years and still smokes cigarettes. ABG shows compensated respiratory acidosis. RECOMMENDATIONS: 1. Continue with present oxygen slowly. 2. Continue antibiotic doxycycline. 3. IV steroids with gradual taper. 4. Non-contrast CT chest. 5. Obtain influenza screen. 6. Further recommendations to follow. Smoking cessation counselling provided. NADIA YE MD DR: LIBERTAD/nts JOB#: [id number] / [id number]
[2018-07-15 12:27] LABS: INFLUENZA A PATIENT POSITIVE (NEGATIVE); INFLUENZA B PATIENT NEGATIVE (NEGATIVE)
--- NOTE | 2018-07-15 13:05 | PDOC1 ---
History and Physical Date of Admission Date of Admission DATE: 07/15/18 TIME: 12:59 Identification/Chief Complaint Chief Complaint S OA, myalgias Source Source: Caregiver, Chart review, Patient History of Present Illness History of Present Illness 83-year-old white female who is good ADLs and IADLs for stated age, was just discharged here yesterday after an overnight stay because of acute bronchitis. No pneumonia on chest x-ray, she does smoke. She came back again because of myalgia, shortness of breath and now has a flu. Again comanage with pulmonary On by mouth Doxy. Not really wheezing so I opted for by mouth prednisone. We'll start Tamiflu 30 twice a day this elderly Otherwise in the she does not have any PT needs seemingly Granddaughter at bedside discussed with her Full code Past Medical History Cardiovascular: Hyperlipidemia Pulmonary: Bronchitis, COPD Hepatobiliary: No pertinent hx Musculoskeletal: Osteoarthritis Past Surgical History Past Surgical History: No pertinent history Family History Family History: High Cholestrol, Hypertension Social History Smoke: <1 pack per day ALCOHOL: none Drugs: None Current Problem List Problem List Problems Medical Problems: (1) Generalized weakness Status: Acute Current Medications Current Medications Current Medications Albuterol/ Ipratropium (Duoneb) 3 ml 1X ONCE NEB Last administered on at 18:53; Start 07/14/18 at 18:45; Stop 07/14/18 at 18:46; Status DC Methylprednisolone Sodium Succinate (SOLU-Medrol 125MG VIAL) 125 mg 1X ONCE IV Last administered on 07/14/18at 19:07; Start 07/14/18 at 18:45; Stop 07/14/18 at 18:46; Status DC Albuterol/ Ipratropium (Duoneb) 3 ml RTQID NEB Last administered on 07/15/18at 11:36; Start 07/15/18 at 12:00 Guaifenesin (Robitussin Dm) 10 ml PRN Q6HRS PRN PO COUGH Last administered on at 10:45; Start 07/15/18 at 10:15 Acetaminophen (Tylenol) 500 mg PRN Q6HRS PRN PO MILD PAIN / TEMP; Start at 10:15 Amlodipine Besylate (Norvasc) 5 mg DAILY PO Last administered on 07/15/18at 10: 44; Start 07/15/18 at 11:00 Aspirin (Children'S Aspirin) 81 mg DAILY PO Last administered on 07/15/18 10: 45; Start 07/15/18 at 11:00 Lisinopril (Prinivil) 20 mg BID PO Last administered on 07/15/18 10:45; Start 07/15/18 at 10:30 Atorvastatin Calcium (Lipitor) 20 mg QMWF@2100 PO ; Start 07/15/18 at 21:00 Methylprednisolone Sodium Succinate (SOLU-Medrol 40MG VIAL) 40 mg Q8HRS IV ; Start 07/15/18 at 14:00 Doxycycline Hyclate (Vibra-Tab) 100 mg BID PO Last administered on 07/15/18 10 :45; Start 07/15/18 at 11:00 Throat Lozenges (Cepacol Sore Throat Lozenge) 1 geovani PRN Q2HRS PRN PO SORE THROAT Last administered on 07/15/18at 10:45; Start 07/15/18 at 10:30 Active Scripts Active Reported Advair 250-50 Diskus (Fluticasone/Salmeterol) 1 Each Disk.w.dev 1 Puff IH BID Ventolin Hfa Inhaler (Albuterol Sulfate) 18 Gm Hfa.aer.ad 2 Puff INH QID Crestor (Rosuvastatin Calcium) 5 Mg Tablet 5 Mg PO QMWF Aspirin 81 Mg Tab.chew 1 Tab PO DAILY Amlodipine Besylate 5 Mg Tablet 5 Mg PO DAILY Lisinopril 20 Mg Tablet 1 Tab PO BID Allergies Allergies: Coded Allergies: Penicillins (Verified Allergy, Intermediate, RASH/HIVES, 01/20/18) ROS Review of System Myalgias, as per history of present illness, no fevers, cough, throat sore, the rest of ROS negative Physical Exam General: Alert, Oriented X3, Cooperative, No acute distress HEENT: Atraumatic, PERRLA, EOMI Lungs: Clear to auscultation, Normal air movement Heart: S1S2, RRR, no thrills, no gallops, no murmurs Cardiovascular: S1, S2 Abdomen: Normal bowel sounds, Soft, No tenderness, No hepatosplenomegaly, No masses Rectal Exam: not examined PELVIC: Nml ext genitalia Extremities: No clubbing, No cyanosis, No edema, Normal pulses, No tenderness/ swelling Skin: No rashes, No breakdown, No significant lesion Neuro: Normal gait, Normal speech, Strength at 5/5 X4 ext, Normal tone, Sensation intact, Cranial nerves 3-12 NL, Reflexes 2+ Psych/Mental Status: Mental status NL, Mood NL Vitals Vitals Vital Signs Date Time Temp Pulse Resp B/P (MAP) Pulse Ox O2 Delivery O2 Flow Rate FiO2 07/15/18 11:36 92 Nasal Cannula 3.5 07/15/18 11:00 98.6 95 20 138/55 (82) 98.6 Labs Labs Laboratory Tests Test 07/14/18 18:40 07/14/18 21:48 07/14/18 22:00 07/15/18 11:50 White Blood Count 11.8 x10^3/uL (4.0-11.0) Red Blood Count 3.95 x10^6/uL (3.50-5.40) Hemoglobin 11.5 g/dL (12.0-15.5) Hematocrit 37.2 % (36.0-47.0) Mean Corpuscular Volume 94 fL (79-100) Mean Corpuscular Hemoglobin 29 pg (25-35) Mean Corpuscular Hemoglobin Concent 31 g/dL (31-37) Red Cell Distribution Width 17.4 % (11.5-14.5) Platelet Count 378 x10^3/uL (140-400) Neutrophils (%) (Auto) 95 % (31-73) Lymphocytes (%) (Auto) 2 % (24-48) Monocytes (%) (Auto) 3 % (0-9) Eosinophils (%) (Auto) 0 % (0-3) Basophils (%) (Auto) 1 % (0-3) Neutrophils # (Auto) 11.1 x10^3uL (1.8-7.7) Lymphocytes # (Auto) 0.2 x10^3/uL (1.0-4.8) Monocytes # (Auto) 0.4 x10^3/uL (0.0-1.1) Eosinophils # (Auto) 0.0 x10^3/uL (0.0-0.7) Basophils # (Auto) 0.1 x10^3/uL (0.0-0.2) Segmented Neutrophils % 97 % (35-66) Band Neutrophils % 2 % (0-9) Monocytes % 1 % (0-10) Toxic Granulation Slight Toxic Vacuolation Slight Platelet Estimate Adequate (ADEQUATE) Polychromasia Slight Anisocytosis Slight Sodium Level 138 mmol/L (136-145) Potassium Level 4.6 mmol/L (3.5-5.1) Chloride Level 101 mmol/L (98-107) Carbon Dioxide Level 31 mmol/L (21-32) Anion Gap 6 (6-14) Blood Urea Nitrogen 27 mg/dL (7-20) Creatinine 1.3 mg/dL (0.6-1.0) Estimated GFR (Cockcroft-Gault) 38.9 BUN/Creatinine Ratio 21 (6-20) Glucose Level 127 mg/dL (70-99) Lactic Acid Level 1.1 mmol/L (0.4-2.0) Calcium Level 9.2 mg/dL (8.5-10.1) Total Bilirubin 0.3 mg/dL (0.2-1.0) Aspartate Amino Transf (AST/SGOT) 28 U/L (15-37) Alanine Aminotransferase (ALT/SGPT) 20 U/L (14-59) Alkaline Phosphatase 46 U/L (46-116) Total Protein 7.8 g/dL (6.4-8.2) Albumin 2.9 g/dL (3.4-5.0) Albumin/Globulin Ratio 0.6 (1.0-1.7) Urine Collection Type Void Urine Color Yellow Urine Clarity Clear Urine pH 5.5 Urine Specific Morley 1.015 Urine Protein 100 mg/dL (NEG-TRACE) Urine Glucose (UA) Negative mg/dL (NEG) Urine Ketones (Stick) Negative mg/dL (NEG) Urine Blood Negative (NEG) Urine Nitrite Negative (NEG) Urine Bilirubin Negative (NEG) Urine Urobilinogen Dipstick 0.2 mg/dL (0.2 mg/dL) Urine Leukocyte Esterase Negative (NEG) Urine RBC 0 /HPF (0-2) Urine WBC Occ /HPF (0-4) Urine Squamous Epithelial Cells Mod /LPF Urine Renal Epithelial Cells Few /LPF Urine Bacteria Few /HPF (0-FEW) Urine Hyaline Casts Occasional /HPF Urine Mucus Mod /LPF O2 Saturation 89 % (92-99) Arterial Blood pH 7.36 (7.35-7.45) Arterial Blood pCO2 at Patient Temp 55 mmHg (35-46) Arterial Blood pO2 at Patient Temp 61 mmHg (65-108) Arterial Blood HCO3 30 mmol/L (21-28) Arterial Blood Base Excess 4 mmol/L (-3-3) FiO2 36 Influenza Type A Antigen Positive (NEGATIVE) Influenza Type B Antigen Negative (NEGATIVE) Laboratory Tests Test 07/14/18 18:40 07/14/18 21:48 07/14/18 22:00 07/15/18 11:50 White Blood Count 11.8 x10^3/uL (4.0-11.0) Red Blood Count 3.95 x10^6/uL (3.50-5.40) Hemoglobin 11.5 g/dL (12.0-15.5) Hematocrit 37.2 % (36.0-47.0) Mean Corpuscular Volume 94 fL (79-100) Mean Corpuscular Hemoglobin 29 pg (25-35) Mean Corpuscular Hemoglobin Concent 31 g/dL (31-37) Red Cell Distribution Width 17.4 % (11.5-14.5) Platelet Count 378 x10^3/uL (140-400) Neutrophils (%) (Auto) 95 % (31-73) Lymphocytes (%) (Auto) 2 % (24-48) Monocytes (%) (Auto) 3 % (0-9) Eosinophils (%) (Auto) 0 % (0-3) Basophils (%) (Auto) 1 % (0-3) Neutrophils # (Auto) 11.1 x10^3uL (1.8-7.7) Lymphocytes # (Auto) 0.2 x10^3/uL (1.0-4.8) Monocytes # (Auto) 0.4 x10^3/uL (0.0-1.1) Eosinophils # (Auto) 0.0 x10^3/uL (0.0-0.7) Basophils # (Auto) 0.1 x10^3/uL (0.0-0.2) Segmented Neutrophils % 97 % (35-66) Band Neutrophils % 2 % (0-9) Monocytes % 1 % (0-10) Toxic Granulation Slight Toxic Vacuolation Slight Platelet Estimate Adequate (ADEQUATE) Polychromasia Slight Anisocytosis Slight Sodium Level 138 mmol/L (136-145) Potassium Level 4.6 mmol/L (3.5-5.1) Chloride Level 101 mmol/L (98-107) Carbon Dioxide Level 31 mmol/L (21-32) Anion Gap 6 (6-14) Blood Urea Nitrogen 27 mg/dL (7-20) Creatinine 1.3 mg/dL (0.6-1.0) Estimated GFR (Cockcroft-Gault) 38.9 BUN/Creatinine Ratio 21 (6-20) Glucose Level 127 mg/dL (70-99) Lactic Acid Level 1.1 mmol/L (0.4-2.0) Calcium Level 9.2 mg/dL (8.5-10.1) Total Bilirubin 0.3 mg/dL (0.2-1.0) Aspartate Amino Transf (AST/SGOT) 28 U/L (15-37) Alanine Aminotransferase (ALT/SGPT) 20 U/L (14-59) Alkaline Phosphatase 46 U/L (46-116) Total Protein 7.8 g/dL (6.4-8.2) Albumin 2.9 g/dL (3.4-5.0) Albumin/Globulin Ratio 0.6 (1.0-1.7) Urine Collection Type Void Urine Color Yellow Urine Clarity Clear Urine pH 5.5 Urine Specific Morley 1.015 Urine Protein 100 mg/dL (NEG-TRACE) Urine Glucose (UA) Negative mg/dL (NEG) Urine Ketones (Stick) Negative mg/dL (NEG) Urine Blood Negative (NEG) Urine Nitrite Negative (NEG) Urine Bilirubin Negative (NEG) Urine Urobilinogen Dipstick 0.2 mg/dL (0.2 mg/dL) Urine Leukocyte Esterase Negative (NEG) Urine RBC 0 /HPF (0-2) Urine WBC Occ /HPF (0-4) Urine Squamous Epithelial Cells Mod /LPF Urine Renal Epithelial Cells Few /LPF Urine Bacteria Few /HPF (0-FEW) Urine Hyaline Casts Occasional /HPF Urine Mucus Mod /LPF O2 Saturation 89 % (92-99) Arterial Blood pH 7.36 (7.35-7.45) Arterial Blood pCO2 at Patient Temp 55 mmHg (35-46) Arterial Blood pO2 at Patient Temp 61 mmHg (65-108) Arterial Blood HCO3 30 mmol/L (21-28) Arterial Blood Base Excess 4 mmol/L (-3-3) FiO2 36 Influenza Type A Antigen Positive (NEGATIVE) Influenza Type B Antigen Negative (NEGATIVE) VTE Prophylaxis Ordered VTE Prophylaxis Devices: Yes VTE Pharmacological Prophylaxi: Yes Assessment/Plan Assessment/Plan Influenza positive Acute bronchitis no pneumonia on chest x-ray Elderly Smoker Plan: Tamiflu Droplet precaution Reconcile home meds Counseling cessation smoking done, I gather she won't quit She has been doing this for a long time Kye patch when necessary Throat lozenge when necessary Other supportive meds Discussed with granddaughter and RN at bedside REMEDIOS BRYANT MD Jul 15, 2018 13:05
--- NOTE | 2018-07-15 13:34 | RAD ---
CT of the chest without contrast, 07/15/2018: HISTORY: Congestive heart failure versus viral pneumonia Noncontrast scans were obtained with multiplanar reconstructions produced. There is extensive calcific plaquing of the thoracic aorta and its branches including the coronary arteries. No aortic aneurysm is evident. No mediastinal adenopathy is seen. There is a small pericardial effusion. Evaluation of the lung parenchyma is partially compromised by patient respiratory motion artifact. There are a few scattered linear opacities in the lower chest compatible with scarring and/or atelectasis. There are faint tree-in-bud type opacities in the lower lobes, more so on the right. A 2 cm spiculated noncalcified mass is present posterior laterally in the left lower lobe abutting the pleura. There is no evidence of pleural fluid. Moderate multilevel hypertrophic degenerative change is present in the spine. There is bony bridging anteriorly at several levels. There is a mild superior endplate deformity at the L2 level of indeterminate age. IMPRESSION: 1. Spiculated left lower lobe pulmonary mass with diagnostic considerations including a primary lung malignancy or focal inflammatory process. 2. Faint tree-in-bud opacities, best seen in the right lower lobe, suggesting bronchopneumonia versus small airway disease. 3. Extensive calcific plaquing of the aorta and coronary arteries. 4. Small pericardial effusion. PQRS Compliance Statement: One or more of the following individualized dose reduction techniques were utilized for this examination: 1. Automated exposure control 2. Adjustment of the mA and/or kV according to patient size 3. Use of iterative reconstruction technique Electronically signed by: Eulalio Snyder MD (07/15/2018 1:32 PM) [facility]
[2018-07-15] MEDS: OSELTAMIVIR 30 MG CAPSULE PO SCH (13:57)
[2018-07-15] MEDS ORDERED: methylPREDNISolone SOD SUCC PF 40 MG/ML VIAL. IV SCH (14:00)
[2018-07-15 15:00] VITALS: BP 117/54
[2018-07-15] MEDS: ACETAMINOPHEN 500 MG TABLET PO PRN ×2 (16:30→23:05)
[2018-07-15 19:00] VITALS: BP 128/48
[2018-07-15] MEDS: LACTOBACILLUS RHAMNOSUS GG 1 CAPSULE. PO SCH (20:38)
[2018-07-15] MEDS ORDERED: ATORVASTATIN CALCIUM 20 MG TABLET PO SCH (21:00)
[2018-07-15 23:00] VITALS: BP 142/56
[2018-07-15] MEDS: NICOTINE 21MG PATCH. TD PRN (23:05)
[2018-07-16 03:00] VITALS: BP 124/54
[2018-07-16 07:00] VITALS: BP 120/45
[2018-07-16] MEDS: IPRATRPIUM/ALBUTEROL 0.5/2.5MG 3 ML NEBU. NEB SCH ×4 (07:38→20:29)
[2018-07-16] MEDS: LACTOBACILLUS RHAMNOSUS GG 1 CAPSULE. PO SCH ×2 (08:31→23:04)
[2018-07-16] MEDS: ASPIRIN CHEWABLE 81 MG TABLET. PO SCH (08:31)
[2018-07-16] MEDS: LISINOPRIL 20 MG TABLET PO SCH ×2 (08:32→21:00)
[2018-07-16] MEDS: amLODIPine BESYLATE 5 MG TABLET PO SCH (08:32)
[2018-07-16] MEDS: DOXYCYCLINE HYCLATE 100 MG TABLET PO SCH ×2 (08:32→23:04)
[2018-07-16] MEDS: predniSONE 20 MG TABLET PO SCH (08:33)
--- NOTE | 2018-07-16 09:46 | NUR ---
IP: Pt is influenza + requiring droplet precautions for 5 days and 24 hours without a fever, whichever is longest.
[2018-07-16 11:00] VITALS: BP 103/44
--- NOTE | 2018-07-16 11:51 | PDOC ---
PROGRESS NOTES Chief Complaint Chief Complaint Influenza positive Acute bronchitis no pneumonia on chest x-ray Elderly Smoker 2 CM spiculated left upper lobe lung nodule History of Present Illness History of Present Illness SHe has no complaints CT imaging shows below: 1. Spiculated left lower lobe pulmonary mass with diagnostic considerations including a primary lung malignancy or focal inflammatory process. 2. Faint tree-in-bud opacities, best seen in the right lower lobe, suggesting bronchopneumonia versus small airway disease. 3. Extensive calcific plaquing of the aorta and coronary arteries. 4. Small pericardial effusion. PLAN: MIght Need tissue sample given heavy smoking history Continue Tamiflu and other supportive meds Full code Came from home with good IADLs prior to admission COnt droplet isol Vitals Vitals Vital Signs Date Time Temp Pulse Resp B/P (MAP) Pulse Ox O2 Delivery O2 Flow Rate FiO2 07/16/18 11:10 92 Nasal Cannula 5.0 07/16/18 08:32 107 124/54 07/16/18 07:00 100.3 20 100.3 Physical Exam General: Alert, Oriented X3, Cooperative, No acute distress Lungs: Clear Abdomen: Normal bowel sounds, Soft, No tenderness, No hepatosplenomegaly, No masses Extremities: No clubbing, No cyanosis, No edema, Normal pulses, No tenderness/ swelling Skin: No rashes, No breakdown, No significant lesion Labs LABS Laboratory Tests Test 07/15/18 11:50 Influenza Type A Antigen Positive (NEGATIVE) Influenza Type B Antigen Negative (NEGATIVE) Review of Systems Review of Systems A 14 point ROS was completed with the following noted as positive: Other systems reviewed and negative. \CONSTITUTIONAL: No fever or chills EYES: No recent changes SKIN: No rash or itching CARDIOVASCULAR: No chest pain, syncope, palpitations, or edema RESPIRATORY: No SOB or cough GASTROINTESTINAL: No nausea, vomiting or abdominal pain NEUROLOGICAL: No headaches or weakness ENDOCRINE: No cold or heat intolerance GENITOURINARY: No urgency or frequency of urination MUSCULOSKELETAL: No back pain or joint pain LYMPHATICS: No enlarged lymph nodes PSYCHIATRIC: No anxiety or depression Assessment and Plan Assessmemt and Plan Problems Medical Problems: (1) Generalized weakness Status: Acute Comment Review of Relevant I have reviewed the following items je (where applicable) has been applied. Labs Laboratory Tests Test 07/14/18 18:40 07/14/18 21:48 07/14/18 22:00 07/15/18 11:50 White Blood Count 11.8 x10^3/uL (4.0-11.0) Red Blood Count 3.95 x10^6/uL (3.50-5.40) Hemoglobin 11.5 g/dL (12.0-15.5) Hematocrit 37.2 % (36.0-47.0) Mean Corpuscular Volume 94 fL (79-100) Mean Corpuscular Hemoglobin 29 pg (25-35) Mean Corpuscular Hemoglobin Concent 31 g/dL (31-37) Red Cell Distribution Width 17.4 % (11.5-14.5) Platelet Count 378 x10^3/uL (140-400) Neutrophils (%) (Auto) 95 % (31-73) Lymphocytes (%) (Auto) 2 % (24-48) Monocytes (%) (Auto) 3 % (0-9) Eosinophils (%) (Auto) 0 % (0-3) Basophils (%) (Auto) 1 % (0-3) Neutrophils # (Auto) 11.1 x10^3uL (1.8-7.7) Lymphocytes # (Auto) 0.2 x10^3/uL (1.0-4.8) Monocytes # (Auto) 0.4 x10^3/uL (0.0-1.1) Eosinophils # (Auto) 0.0 x10^3/uL (0.0-0.7) Basophils # (Auto) 0.1 x10^3/uL (0.0-0.2) Segmented Neutrophils % 97 % (35-66) Band Neutrophils % 2 % (0-9) Monocytes % 1 % (0-10) Toxic Granulation Slight Toxic Vacuolation Slight Platelet Estimate Adequate (ADEQUATE) Polychromasia Slight Anisocytosis Slight Sodium Level 138 mmol/L (136-145) Potassium Level 4.6 mmol/L (3.5-5.1) Chloride Level 101 mmol/L (98-107) Carbon Dioxide Level 31 mmol/L (21-32) Anion Gap 6 (6-14) Blood Urea Nitrogen 27 mg/dL (7-20) Creatinine 1.3 mg/dL (0.6-1.0) Estimated GFR (Cockcroft-Gault) 38.9 BUN/Creatinine Ratio 21 (6-20) Glucose Level 127 mg/dL (70-99) Lactic Acid Level 1.1 mmol/L (0.4-2.0) Calcium Level 9.2 mg/dL (8.5-10.1) Total Bilirubin 0.3 mg/dL (0.2-1.0) Aspartate Amino Transf (AST/SGOT) 28 U/L (15-37) Alanine Aminotransferase (ALT/SGPT) 20 U/L (14-59) Alkaline Phosphatase 46 U/L (46-116) Total Protein 7.8 g/dL (6.4-8.2) Albumin 2.9 g/dL (3.4-5.0) Albumin/Globulin Ratio 0.6 (1.0-1.7) Urine Collection Type Void Urine Color Yellow Urine Clarity Clear Urine pH 5.5 Urine Specific [place] 1.015 Urine Protein 100 mg/dL (NEG-TRACE) Urine Glucose (UA) Negative mg/dL (NEG) Urine Ketones (Stick) Negative mg/dL (NEG) Urine Blood Negative (NEG) Urine Nitrite Negative (NEG) Urine Bilirubin Negative (NEG) Urine Urobilinogen Dipstick 0.2 mg/dL (0.2 mg/dL) Urine Leukocyte Esterase Negative (NEG) Urine RBC 0 /HPF (0-2) Urine WBC Occ /HPF (0-4) Urine Squamous Epithelial Cells Mod /LPF Urine Renal Epithelial Cells Few /LPF Urine Bacteria Few /HPF (0-FEW) Urine Hyaline Casts Occasional /HPF Urine Mucus Mod /LPF O2 Saturation 89 % (92-99) Arterial Blood pH 7.36 (7.35-7.45) Arterial Blood pCO2 at Patient Temp 55 mmHg (35-46) Arterial Blood pO2 at Patient Temp 61 mmHg (65-108) Arterial Blood HCO3 30 mmol/L (21-28) Arterial Blood Base Excess 4 mmol/L (-3-3) FiO2 36 Influenza Type A Antigen Positive (NEGATIVE) Influenza Type B Antigen Negative (NEGATIVE) Laboratory Tests Test 07/15/18 11:50 Influenza Type A Antigen Positive (NEGATIVE) Influenza Type B Antigen Negative (NEGATIVE) Microbiology 07/14/18 Blood Culture - Preliminary, Resulted NO GROWTH AFTER 1 DAY Medications Current Medications Albuterol/ Ipratropium (Duoneb) 3 ml 1X ONCE NEB Last administered on at 18:53; Start 07/14/18 at 18:45; Stop 07/14/18 at 18:46; Status DC Methylprednisolone Sodium Succinate (SOLU-Medrol 125MG VIAL) 125 mg 1X ONCE IV Last administered on 07/14/18 19:07; Start 07/14/18 at 18:45; Stop 07/14/18 at 18:46; Status DC Albuterol/ Ipratropium (Duoneb) 3 ml RTQID NEB Last administered on 07/16/18 11:09; Start 07/15/18 at 12:00 Guaifenesin (Robitussin Dm) 10 ml PRN Q6HRS PRN PO COUGH Last administered on 10:45; Start 07/15/18 at 10:15 Acetaminophen (Tylenol) 500 mg PRN Q6HRS PRN PO MILD PAIN / TEMP Last administered on 07/15/18 23:05; Start 07/15/18 at 10:15 Amlodipine Besylate (Norvasc) 5 mg DAILY PO Last administered on 07/16/18 08: 32; Start 07/15/18 at 11:00 Aspirin (Children'S Aspirin) 81 mg DAILY PO Last administered on 07/16/18 08: 31; Start 07/15/18 at 11:00 Lisinopril (Prinivil) 20 mg BID PO Last administered on 07/16/18 08:32; Start 07/15/18 at 10:30 Atorvastatin Calcium (Lipitor) 20 mg QMWF@2100 PO Last administered on 20:38; Start 07/15/18 at 21:00 Methylprednisolone Sodium Succinate (SOLU-Medrol 40MG VIAL) 40 mg Q8HRS IV ; Start 07/15/18 at 14:00; Stop 07/15/18 at 14:00; Status DC Doxycycline Hyclate (Vibra-Tab) 100 mg BID PO Last administered on 07/16/18 08 :32; Start 07/15/18 at 11:00 Throat Lozenges (Cepacol Sore Throat Lozenge) 1 geovani PRN Q2HRS PRN PO SORE THROAT Last administered on 07/15/18 10:45; Start 07/15/18 at 10:30 Oseltamivir Phosphate (Tamiflu) 30 mg Q24H PO Last administered on 3/13/19at 13 :57; Start 07/15/18 at 13:00; Stop 07/19/18 at 13:01 Prednisone (Prednisone) 40 mg DAILY PO Last administered on 07/16/18at 08:33; Start 07/16/18 at 09:00 Nicotine (Nicoderm Cq 21mg) 1 patch PRN DAILY PRN TD SMOKING CESSATION Last administered on 07/15/18at 23:05; Start 07/15/18 at 13:15 Lactobacillus Rhamnosus (Culturelle) 1 cap BID PO Last administered on at 08:31; Start 07/15/18 at 21:00 Active Scripts Active Reported Advair 250-50 Diskus (Fluticasone/Salmeterol) 1 Each Disk.w.dev 1 Puff IH BID Ventolin Hfa Inhaler (Albuterol Sulfate) 18 Gm Hfa.aer.ad 2 Puff INH QID Crestor (Rosuvastatin Calcium) 5 Mg Tablet 5 Mg PO QMWF Aspirin 81 Mg Tab.chew 1 Tab PO DAILY Amlodipine Besylate 5 Mg Tablet 5 Mg PO DAILY Lisinopril 20 Mg Tablet 1 Tab PO BID Vitals/I & O Vital Sign - Last 24 Hours 07/15/18 07/15/18 07/15/18 07/15/18 15:00 15:45 19:00 19:45 Temp 100.7 99.5 100.7 99.5 Pulse 111 100 Resp 18 20 B/P (MAP) 117/54 (75) 128/48 (74) Pulse Ox 92 89 O2 Delivery Nasal Cannula Nasal Cannula Nasal Cannula Nasal Cannula O2 Flow Rate 3.5 3.5 3.5 3.5 07/15/18 07/15/18 07/15/18 07/16/18 19:57 20:39 23:00 03:00 Temp 101.2 99.5 101.2 99.5 Pulse 82 110 107 Resp 20 20 B/P (MAP) 124/52 142/56 (84) 124/54 (77) Pulse Ox 88 90 O2 Delivery Nasal Cannula Nasal Cannula Nasal Cannula O2 Flow Rate 3.5 5.0 5.0 07/16/18 07/16/18 07/16/18 07/16/18 07:00 07:38 08:00 08:32 Temp 100.3 100.3 Pulse 110 107 Resp 20 B/P (MAP) 120/45 (70) 124/54 Pulse Ox 90 92 O2 Delivery Nasal Cannula Nasal Cannula Nasal Cannula O2 Flow Rate 5.0 5.0 5.0 07/16/18 07/16/18 08:32 11:10 Pulse 107 B/P (MAP) 124/54 Pulse Ox 92 O2 Delivery Nasal Cannula O2 Flow Rate 5.0 Intake and Output 07/15/18 07/15/18 07/16/18 14:59 22:59 06:59 Intake Total 480 ml 320 ml Output Total 2 ml Balance 480 ml 318 ml REMEDIOS BRYANT MD Jul 16, 2018 11:51
--- NOTE | 2018-07-16 11:52 | NUR ---
SW following pt for anticipated dc needs. Chart reviewed. Pt lives at home alone. Pt is independent with ADL's and does not have PT/OT needs. No SW needs noted at this time. SW will continue to assess dc needs.
[2018-07-16] MEDS: OSELTAMIVIR 30 MG CAPSULE PO SCH (12:39)
--- NOTE | 2018-07-16 13:18 | PDOC ---
PULMONARY PROGRESS NOTES Subjective less cough Vitals Vital Signs Date Time Temp Pulse Resp B/P (MAP) Pulse Ox O2 Delivery O2 Flow Rate FiO2 07/16/18 11:10 92 Nasal Cannula 5.0 07/16/18 11:00 98.2 105 20 103/44 (63) 98.2 ROS: No Increase Cough General: Alert, No acute distress Lungs: Clear Cardiovascular: S1, S2 Abdomen: Soft Neuro Exam: Alert Extremities: No Edema Skin: Warm Labs Laboratory Tests Test 07/14/18 18:40 07/14/18 21:48 07/14/18 22:00 07/15/18 11:50 White Blood Count 11.8 x10^3/uL (4.0-11.0) Red Blood Count 3.95 x10^6/uL (3.50-5.40) Hemoglobin 11.5 g/dL (12.0-15.5) Hematocrit 37.2 % (36.0-47.0) Mean Corpuscular Volume 94 fL (79-100) Mean Corpuscular Hemoglobin 29 pg (25-35) Mean Corpuscular Hemoglobin Concent 31 g/dL (31-37) Red Cell Distribution Width 17.4 % (11.5-14.5) Platelet Count 378 x10^3/uL (140-400) Neutrophils (%) (Auto) 95 % (31-73) Lymphocytes (%) (Auto) 2 % (24-48) Monocytes (%) (Auto) 3 % (0-9) Eosinophils (%) (Auto) 0 % (0-3) Basophils (%) (Auto) 1 % (0-3) Neutrophils # (Auto) 11.1 x10^3uL (1.8-7.7) Lymphocytes # (Auto) 0.2 x10^3/uL (1.0-4.8) Monocytes # (Auto) 0.4 x10^3/uL (0.0-1.1) Eosinophils # (Auto) 0.0 x10^3/uL (0.0-0.7) Basophils # (Auto) 0.1 x10^3/uL (0.0-0.2) Segmented Neutrophils % 97 % (35-66) Band Neutrophils % 2 % (0-9) Monocytes % 1 % (0-10) Toxic Granulation Slight Toxic Vacuolation Slight Platelet Estimate Adequate (ADEQUATE) Polychromasia Slight Anisocytosis Slight Sodium Level 138 mmol/L (136-145) Potassium Level 4.6 mmol/L (3.5-5.1) Chloride Level 101 mmol/L (98-107) Carbon Dioxide Level 31 mmol/L (21-32) Anion Gap 6 (6-14) Blood Urea Nitrogen 27 mg/dL (7-20) Creatinine 1.3 mg/dL (0.6-1.0) Estimated GFR (Cockcroft-Gault) 38.9 BUN/Creatinine Ratio 21 (6-20) Glucose Level 127 mg/dL (70-99) Lactic Acid Level 1.1 mmol/L (0.4-2.0) Calcium Level 9.2 mg/dL (8.5-10.1) Total Bilirubin 0.3 mg/dL (0.2-1.0) Aspartate Amino Transf (AST/SGOT) 28 U/L (15-37) Alanine Aminotransferase (ALT/SGPT) 20 U/L (14-59) Alkaline Phosphatase 46 U/L (46-116) Total Protein 7.8 g/dL (6.4-8.2) Albumin 2.9 g/dL (3.4-5.0) Albumin/Globulin Ratio 0.6 (1.0-1.7) Urine Collection Type Void Urine Color Yellow Urine Clarity Clear Urine pH 5.5 Urine Specific Rankin 1.015 Urine Protein 100 mg/dL (NEG-TRACE) Urine Glucose (UA) Negative mg/dL (NEG) Urine Ketones (Stick) Negative mg/dL (NEG) Urine Blood Negative (NEG) Urine Nitrite Negative (NEG) Urine Bilirubin Negative (NEG) Urine Urobilinogen Dipstick 0.2 mg/dL (0.2 mg/dL) Urine Leukocyte Esterase Negative (NEG) Urine RBC 0 /HPF (0-2) Urine WBC Occ /HPF (0-4) Urine Squamous Epithelial Cells Mod /LPF Urine Renal Epithelial Cells Few /LPF Urine Bacteria Few /HPF (0-FEW) Urine Hyaline Casts Occasional /HPF Urine Mucus Mod /LPF O2 Saturation 89 % (92-99) Arterial Blood pH 7.36 (7.35-7.45) Arterial Blood pCO2 at Patient Temp 55 mmHg (35-46) Arterial Blood pO2 at Patient Temp 61 mmHg (65-108) Arterial Blood HCO3 30 mmol/L (21-28) Arterial Blood Base Excess 4 mmol/L (-3-3) FiO2 36 Influenza Type A Antigen Positive (NEGATIVE) Influenza Type B Antigen Negative (NEGATIVE) Medications Active Scripts Medications Dose Route/Sig Max Daily Dose Days Date Category Advair 250-50 Diskus (Fluticasone/Salmeterol) 1 Each Disk.w.dev 1 Puff IH BID 07/14/18 Reported Ventolin Hfa Inhaler (Albuterol Sulfate) 18 Gm Hfa.aer.ad 2 Puff INH QID 07/14/18 Reported Crestor (Rosuvastatin Calcium) 5 Mg Tablet 5 Mg PO QMWF 07/13/18 Reported Aspirin 81 Mg Tab.chew 1 Tab PO DAILY 01/20/18 Reported Amlodipine Besylate 5 Mg Tablet 5 Mg PO DAILY 01/20/18 Reported Lisinopril 20 Mg Tablet 1 Tab PO BID 01/20/18 Reported Impression . 1. Dyspnea with acute hypoxic respiratory failure related to an infectious etiology , influenza A viral pneumonitis 2. Abnormal CT chest with RLL interstitial Infiltrate c/w pneumonia and LLL mass. suspect malignancy. 3. Underlying chronic obstructive pulmonary disease with mild exacerbation, smoker for 60 years and still smokes cigarettes. ABG shows compensated respiratory acidosis. Plan . 1. Continue with present oxygen. 2. Continue antibiotic doxycycline/ Tamiflu 3. PO steroids with gradual taper. 4. discuss with patient regarding her desire to pursue lung mass biopsy at this time. she wants to hold off on any invasive procedure for now and f/u as OP 5. influenza precautions 6. Further recommendations to follow. NADIA YE MD Jul 16, 2018 13:18
[2018-07-16 15:00] VITALS: BP 104/37
[2018-07-16 19:00] VITALS: BP 106/43
[2018-07-16] MEDS ORDERED: TEMAZEPAM 7.5 MG CAPSULE PO PRN (21:15)
[2018-07-16 23:00] VITALS: BP 115/50
[2018-07-17 02:53] VITALS: BP 129/53
[2018-07-17 07:00] VITALS: BP 113/44
[2018-07-17] MEDS: IPRATRPIUM/ALBUTEROL 0.5/2.5MG 3 ML NEBU. NEB SCH ×2 (08:08→11:38)
[2018-07-17] MEDS: amLODIPine BESYLATE 5 MG TABLET PO SCH (09:00)
[2018-07-17] MEDS: LISINOPRIL 20 MG TABLET PO SCH (09:00)
[2018-07-17] MEDS: DOXYCYCLINE HYCLATE 100 MG TABLET PO SCH (10:29)
[2018-07-17] MEDS: LACTOBACILLUS RHAMNOSUS GG 1 CAPSULE. PO SCH (10:30)
[2018-07-17] MEDS: predniSONE 20 MG TABLET PO SCH (10:31)
[2018-07-17] MEDS: NICOTINE 21MG PATCH. TD PRN (10:32)
[2018-07-17] MEDS: ASPIRIN CHEWABLE 81 MG TABLET. PO SCH (10:32)
[2018-07-17 11:00] VITALS: BP 118/43
[2018-07-17] MEDS ORDERED: BENZ1LOZ4 PO (11:45)
[2018-07-17] MEDS ORDERED: Nicotine 21MG TD (11:45)
[2018-07-17] MEDS ORDERED: DOXY100T PO (11:45)
[2018-07-17] MEDS ORDERED: GUAI5SYR PO (11:45)
[2018-07-17] MEDS ORDERED: OSEL30CA PO (11:45)
--- NOTE | 2018-07-17 11:49 | PDOC3 ---
Discharge Summary Visit Information Date of Admission: Jul 15, 2018 Date of Discharge: Jul 17, 2018 Admitting Diagnosis Comment: Influenza positive Acute bronchitis no pneumonia on chest x-ray Elderly Smoker 2 CM spiculated left upper lobe lung nodule Final Diagnosis Problems Medical Problems: (1) Generalized weakness Status: Acute Brief Hospital Course Allergies Allergies Coded Allergies Type Severity Reaction Last Updated Verified Penicillins Allergy Intermediate RASH/HIVES 01/20/18 Yes Vital Signs Vital Signs Date Time Temp Pulse Resp B/P (MAP) Pulse Ox O2 Delivery O2 Flow Rate FiO2 07/17/18 11:00 98.3 98 18 118/43 (68) 90 Nasal Cannula 3.0 98.3 Lab Results Laboratory Tests Test 07/15/18 11:50 Influenza Type A Antigen Positive (NEGATIVE) Influenza Type B Antigen Negative (NEGATIVE) Brief Hospital Course Ms. Carrillo is a 83 old smoker but has good IADLs for age, lives alone at home. She was a readmission after being discharged 1 day prior to readmission for worsening SOA. She was treated for acute bronchitis, no pneumonia on chest x -ray on the first admission. This time she was found to be influenza positive and was treated with Tamiflu along with pulmonary again on board and droplet isolation. chest CT was done and showed a 2 Cms lung nodule in this smoker. She opted not to pursue for biopsy but she will follow-up with pulmonary and already has an appointment July 29 dr Harding Patient sent home with no PT needs. Tamiflu on chart. To stop Z-Deyvi previously given and to continue doxycycline and pred taper. Consults performed pulmonary procedures performed none Time spent discharge less than 30 minutes Discharge Information Condition at Discharge: Improved, Stable Disposition/Orders: D/C to Home Scheduled Albuterol Sulfate (Ventolin Hfa Inhaler) 18 Gm Hfa.aer.ad, 2 PUFF INH QID for FOR ASTHMA, Ref 0 (Reported) Entered as Reported by: MARY MENDOZA RN on 07/14/18 760 Last Action: Reviewed on 07/15/18 1013 by REMEDIOS BRYANT Amlodipine Besylate (Amlodipine Besylate) 5 Mg Tablet, 5 MG PO DAILY, (Reported) Entered as Reported by: MARKEL ALEJO on 01/20/182047 Last Action: Continued on 07/15/18 1013 by REMEDIOS BRYANT Aspirin (Aspirin) 81 Mg Tab.chew, 1 TAB PO DAILY, #30 Ref 3 (Reported) Entered as Reported by: MARKEL ALEJO on 01/20/182047 Last Action: Continued on 07/15/18 1013 by REMEDIOS BRYANT Doxycycline Hyclate (Doxycycline Hyclate) 100 Mg Tablet, 100 MG PO BID for bronchitis MDD 1 for 5 Days, #10 Prescribed by: REMEDIOS BRYANT on 07/17/18 1145 Fluticasone/Salmeterol (Advair 250-50 Diskus) 1 Each Disk.w.dev, 1 PUFF IH BID for copd, #3 Ref 3 (Reported) Entered as Reported by: MARY MENDOZA RN on 07/14/182256 Last Action: HELD on 07/15/18 1013 by REMEDIOS BRYANT Lisinopril (Lisinopril) 20 Mg Tablet, 1 TAB PO BID, #30 Ref 5 (Reported) Entered as Reported by: MARKEL ALEJO on 01/20/182047 Last Action: Continued on 07/15/18 1013 by REMEDIOS BRYANT Oseltamivir Phosphate (Tamiflu) 30 Mg Capsule, 30 MG PO Q24H for flu MDD 1 for 3 Days, #3 Prescribed by: REMEDIOS BRYANT on 07/17/18 1145 Rosuvastatin Calcium (Crestor) 5 Mg Tablet, 5 MG PO QMWF for FOR CHOLESTEROL, # 30 Ref 0 (Reported) Entered as Reported by: ANT BAXTER on 07/13/18 0737 Last Action: Converted on 07/15/18 1013 by REMEDIOS BRYANT Scheduled PRN Benzocaine/Menthol (Sore Throat Lozenge) 1 Each Lozenge, 1 MARCELLO PO PRN Q2HRS PRN for SORE THROAT MDD 1, #1 Prescribed by: REMEDIOS BRYANT on 07/17/18 1145 Guaifenesin/Dextromethorphan (Guaifenesin Dm Syrup) 5 Ml Syrup, 10 ML PO PRN Q6HRS PRN for COUGH MDD 1, #1 Prescribed by: REMEDIOS BRYANT on 07/17/18 1145 [Nicotine 21MG] 1 PATCH PATCH, 1 PATCH TD PRN DAILY PRN for SMOKING CESSATION MDD 1, #14 Prescribed by: REMEDIOS BRYANT on 07/17/18 1145 REMEDIOS BRYANT MD Jul 17, 2018 11:49
--- NOTE | 2018-07-17 11:51 | PDOC ---
PULMONARY PROGRESS NOTES Subjective less cough Vitals Vital Signs Date Time Temp Pulse Resp B/P (MAP) Pulse Ox O2 Delivery O2 Flow Rate FiO2 07/17/18 11:00 98.3 98 18 118/43 (68) 90 Nasal Cannula 3.0 98.3 ROS: No Increase Cough General: Alert, No acute distress Lungs: Clear Cardiovascular: S1, S2 Abdomen: Soft Neuro Exam: Alert Extremities: No Edema Skin: Warm Medications Active Scripts Medications Dose Route/Sig Max Daily Dose Days Date Category Advair 250-50 Diskus (Fluticasone/Salmeterol) 1 Each Disk.w.dev 1 Puff IH BID 07/14/18 Reported Ventolin Hfa Inhaler (Albuterol Sulfate) 18 Gm Hfa.aer.ad 2 Puff INH QID 07/14/18 Reported Crestor (Rosuvastatin Calcium) 5 Mg Tablet 5 Mg PO QMWF 07/13/18 Reported Aspirin 81 Mg Tab.chew 1 Tab PO DAILY 01/20/18 Reported Amlodipine Besylate 5 Mg Tablet 5 Mg PO DAILY 01/20/18 Reported Lisinopril 20 Mg Tablet 1 Tab PO BID 01/20/18 Reported Impression . 1. Dyspnea with acute hypoxic respiratory failure related to an infectious etiology , influenza A viral pneumonitis 2. Abnormal CT chest with RLL interstitial Infiltrate c/w pneumonia and LLL mass. suspect malignancy. 3. Underlying chronic obstructive pulmonary disease with mild exacerbation, smoker for 60 years and still smokes cigarettes. ABG shows compensated respiratory acidosis. Plan . 1. Continue with present oxygen. 2. Continue antibiotic doxycycline/ Tamiflu 3. PO steroids with gradual taper. 4. discuss with patient regarding her desire to pursue lung mass biopsy at this time. she wants to hold off on any invasive procedure for now and f/u as OP. I will arrange PET scan and see her in office on July 29 with family 5. influenza precautions 6. d/w NADIA Cote MD Jul 17, 2018 11:51
[2018-07-17] MEDS: OSELTAMIVIR 30 MG CAPSULE PO SCH (13:25)
--- NOTE | 2018-07-17 14:10 | NUR ---
Pt was discharged to home at 1335 today in stable condition with all personal belongings after reviewing all pertinent information including education, medications, follow up and at home care. Pt was escorted via [facility] and accompanied by family and staff to the main exit where her daughter drove her home.
== END 2018-07-17 13:35 | disposition home or self-care (01) | DRG 193 ==
LOC: ER 18:26 → 5 NORTH 21:00 → OBSVTOIN 07-15 13:45
PROVIDERS: ADMIT Internal Medicine; ATTEND Internal Medicine
DX: J10.08 Influenza due to other identified influenza virus with other specified pneumonia (principal); J96.01 Acute respiratory failure with hypoxia; E87.2 Acidosis; I31.3 Pericardial effusion (noninflammatory); J44.1 Chronic obstructive pulmonary disease with (acute) exacerbation; J44.0 Chronic obstructive pulmonary disease with (acute) lower respiratory infection; J20.9 Acute bronchitis, unspecified; R91.1 Solitary pulmonary nodule; E78.00 Pure hypercholesterolemia, unspecified; E78.5 Hyperlipidemia, unspecified; M19.90 Unspecified osteoarthritis, unspecified site; F17.210 Nicotine dependence, cigarettes, uncomplicated; I10 Essential (primary) hypertension; Z79.51 Long term (current) use of inhaled steroids; Z79.82 Long term (current) use of aspirin; Z79.899 Other long term (current) drug therapy; Z82.49 Family history of ischemic heart disease and other diseases of the circulatory system; Z71.6 Tobacco abuse counseling; J12.9 Viral pneumonia, unspecified
CPT/HCPCS: 36415; 36600; 71045; 71250; 80053; 81001; 82805; 83605; 85007; 85025; 87040; 87804; 94640; 94760; 96374; G0378; G0379; J2930; J7512; J7620; 99285-25